=== PATIENT | female | born 1955 | race Caucasian/White ===

== ENCOUNTER 2016-11-26 06:57 | Observation (INO) | payer SELFPAY ==
[2016-11-26 06:57] VITALS: BMI 24.1
[2016-11-26] MEDS ORDERED: Albuterol-Ipratrop 3 mg / 0.5 (3 ml) UD INH STA ×2 (07:24→09:45)
[2016-11-26] MEDS ORDERED: Albuterol-Ipratrop 3 mg / 0.5 (3 ml) UD ONE ×2 (07:28→09:42)
[2016-11-26 07:50] LABS: BASO % 0.6 % (0.0-2.0); EOS # 0.5 K/uL (0.0-0.7); HEMATOCRIT 33.9 % (34.0-47.0); LYMPH # 1.5 K/uL (1.0-4.3); LYMPH % 20.6 % (20.0-40.0); MEAN CELL VOLUME 85.6 fL (81.0-99.0); MEAN CORPUSCULAR HEMOGLOBIN 27.9 pg (27.0-31.0); MEAN CORPUSCULAR HGB CONC 32.6 g/dL (33.0-37.0); MEAN PLATELET VOLUME 8.7 fL (7.2-11.7); MONO # 0.8 K/uL (0.0-0.8); MONO % 11.1 % (0.0-10.0); RED CELL DISTRIBUTION WIDTH 14.7 % (11.5-14.5); WHITE BLOOD COUNT 7.3 K/uL (4.8-10.8)
--- NOTE | 2016-11-26 08:08 | C.PDOC ---
History Of Present Illness 61 y/o female presents to the ED c/o cough productive of "greenish phlegm" with "blood speckles" for 3-4 days. She also notes subjective fever and chest pain only with cough. Denies vomiting, hematuria, recent travel, or sick contacts. Patient states she had her flu shot this year. Chief Complaint (Nursing): Flu-like Symptoms History Per: Patient History/Exam Limitations: no limitations Onset/Duration Of Symptoms: Days (3-4), Persistent Current Symptoms Are (Timing): Still Present Sick Contacts (Context): None Recent travel outside of the [place]: No Past Medical History Reviewed: Historical Data, Nursing Documentation, Vital Signs Vital Signs: Last Vital Signs Temp 98.0 F 11/26/16 17:10 Pulse 92 H 11/26/16 17:10 Resp 20 11/26/16 17:10 BP 124/77 11/26/16 17:10 Pulse Ox 96 11/26/16 13:00 - Medical History PMH: Gastritis, HTN Surgical History: No Surg Hx - [facility] Procedures MEASURE OF CARDIAC SAMPL & PRESSURE, L HEART, PERC APPROACH (10/10/15) PLAIN RADIOGRAPHY OF LEFT HEART USING LOW OSMOLAR CONTRAST (10/10/15) Family History: States: Unknown Family Hx - Social History Hx Tobacco Use: No Hx Alcohol Use: No Hx Substance Use: No - Immunization History Hx Tetanus Toxoid Vaccination: No Hx Influenza Vaccination: No Hx Pneumococcal Vaccination: Yes Review Of Systems Except As Marked, All Systems Reviewed And Found Negative. Constitutional: Positive for: Fever (subjective) Cardiovascular: Positive for: Chest Pain (only w/ cough) Respiratory: Positive for: Cough, Sputum Gastrointestinal: Negative for: Vomiting Genitourinary: Negative for: Hematuria Physical Exam - Physical Exam Appears: Non-toxic, No Acute Distress Skin: Normal Color, Warm, Dry, No Rash Head: Atraumatic, Normacephalic Eye(s): bilateral: Normal Inspection, PERRL Ear(s): Bilateral: Normal Nose: Normal Oral Mucosa: Moist Throat: Normal, No Erythema, No Exudate Neck: Normal ROM, Supple Chest: Symmetrical, No Tenderness Cardiovascular: Rhythm Regular Respiratory: No Rales, Rhonchi (mild b/l), Wheezing (mild expiratory) Gastrointestinal/Abdominal: Normal Exam, Soft, No Tenderness Back: Normal Inspection, No CVA Tenderness Extremity: Normal ROM, No Swelling Neurological/Psych: Oriented x3, Normal Speech, Normal Cognition ED Course And Treatment - Laboratory Results Result Diagrams: 11/26/16 07:46 11/26/16 07:46 ECG: Interpreted By Me ECG Rhythm: Sinus Rhythm Interpretation Of ECG: first degree AV block, normal axis Rate From EC (bpm) O2 Sat by Pulse Oximetry: 98 (ra) Pulse Ox Interpretation: Normal - Other Rad Chest X-Ray X-Ray: Viewed By Me, Read By Radiologist (Dk Kimbrough MD) Interpretation: IMPRESSION: Mild diffuse bilateral infiltrates with perihilar predominance. Findings may represent pulmonary edema/ CHF however pneumonia to be excluded Progress Note: Plan: EKG, CXR, Blood Work, Solu-Medrol IVP. Disposition - Disposition Disposition: HOSPITALIZED Disposition Time: 10:00 Condition: STABLE - Clinical Impression Clinical Impression: Community acquired pneumonia - Scribe Statement The provider has reviewed the documentation as recorded by the Scribe (Ananya Bonilla) Provider Attestation: All medical record entries made by the Scribe were at my direction and personally dictated by me. I have reviewed the chart and agree that the record accurately reflects my personal performance of the history, physical exam, medical decision making, and the department course for this patient. I have also personally directed, reviewed, and agree with the discharge instructions and disposition.
[2016-11-26 08:21] LABS: CHLORIDE 107 mmol/L (98-107); SODIUM 138 mmol/L (132-148)
[2016-11-26 08:23] LABS: AST/SGOT 50 U/L (14-36); BILIRUBIN,TOTAL 1.3 mg/dL (0.2-1.3); CARBON DIOXIDE 22 mmol/L (22-30); GFR AFRICAN-AMERICAN > 60
[2016-11-26 08:24] LABS: ALB/GLOB RATIO 1.3 (1.0-2.1); ALKALINE PHOSPHATASE 75 U/L (38-126); ALT/SGPT 35 U/L (9-52); BLOOD UREA NITROGEN 17 mg/dL (7-17); CALCIUM 8.2 mg/dl (8.6-10.4); GLUCOSE,RANDOM 85 mg/dL (65-105); TOTAL PROTEIN 7.4 g/dL (6.3-8.3)
[2016-11-26 08:29] LABS: POTASSIUM 4.9 mmol/L (3.6-5.2)
--- NOTE | 2016-11-26 09:57 | RAD ---
HISTORY: r/o infiltrate COMPARISON: No prior. TECHNIQUE: Chest PA and lateral FINDINGS: LUNGS: Mild diffuse bilateral on infiltrates with perihilar predominance. Findings may represent pulmonary edema/CHF however pneumonia to be excluded. . Clinical correlation recommended. PLEURA: No significant pleural effusion identified. No pneumothorax apparent. CARDIOVASCULAR: Cardiomegaly. OSSEOUS STRUCTURES: Moderate dextroscoliosis centered at the mid to lower thoracic region. VISUALIZED UPPER ABDOMEN: Normal. OTHER FINDINGS: None. IMPRESSION: Mild diffuse bilateral infiltrates with perihilar predominance. Findings may represent pulmonary edema/ CHF however pneumonia to be excluded
[2016-11-26] MEDS ORDERED: cefTRIAXone IV 1 gm in Dextros 50 ML IVPB STA (10:01)
[2016-11-26] MEDS ORDERED: Azithromycin 500 MG in Sodium Chloride 0.9% 250 ML IVPB STA (10:01)
[2016-11-26] MEDS ORDERED: Azithromycin 500mg/250ML NS 250 ML IVPB ONE (10:13)
[2016-11-26] MEDS ORDERED: cefTRIAXone IV 1 gm in Dextros 50 ML IVPB ONE (10:13)
--- NOTE | 2016-11-26 13:42 | CP.PCM.HP ---
<Amanda Damon - Last Filed: 11/26/16 14:00> History of Present Illness - History of Present Illness History of Present Illness: Internal medicine H & P for Hospitalist service- Amanda Damon, PGY-1 Pt S & E at bedside. 61F w/PMH sig for HTN, HLD, gastritis admitted to hospital for cough x 3 days. Pt reports that she noted chest soreness and fatigue 3 wks ago, came to ED- admitted to hospital- given Flexeril upon discharge, which helped with the muscle soreness. Approx 3 days ago pt developed productive cough w/hemoptysis- green mucus w/streaks of bright red blood. Admits to sinus congestion, cough with urinary incontinence, myaglias, fatigue, sore throat, rhinorrhea, subjective fevers, chills, poor appetite, SOB, ALMANZAR, diarrhea (soft/formed/yellow) , occasional LE (L>R) swelling after standing for long periods of time/working. Pt reports taking Ampicillin that was acquired in uar, 2 tablets yesterday. Denies sick contacts, N/V, constipation, dysuria, urinary frequency , rashes, numbness or tingling, weakness. 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 Present on Admission - Present on Admission Any Indicators Present on Admission: No History of DVT/PE: No History of Uncontrolled Diabetes: No Urinary Catheter: No Decubitus Ulcer Present: No Review of Systems - Review of Systems All systems: reviewed and no additional remarkable complaints except - Constitutional Constitutional: Chills, Fatigue, Fever, Headache, Lethargy. absent: Weight Gain , Weight Loss, Weakness - EENT Eyes: Change in Vision, Spots in Vision Ears: absent: Dizziness Nose/Mouth/Throat: Sinus Pressure, Sore Throat. absent: Epistaxis, Dysphagia - Cardiovascular Cardiovascular: absent: Chest Pain, Leg Edema - Respiratory Respiratory: Cough, Chest Congestion. absent: Dyspnea on Exertion - Gastrointestinal Gastrointestinal: Loose Stools. absent: Abdominal Pain, Constipation, Nausea, Vomiting - Genitourinary Genitourinary: Urinary Incontinence (with cough). absent: Dysuria - Musculoskeletal Musculoskeletal: Myalgias. absent: Numbness, Tingling - Integumentary Integumentary: absent: Rash - Neurological Neurological: absent: Dizziness, Tingling Past Patient History - Infectious Disease Hx of Infectious Diseases: None - Past Medical History & Family History Past Medical History?: Yes - Past Social History Smoking Status: Never Smoked - CARDIAC Hx Hypertension: Yes - PULMONARY Hx Respiratory Disorders: No - NEUROLOGICAL Hx Neurological Disorder: No - HEENT Hx HEENT Problems: No - ENDOCRINE/METABOLIC Hx Endocrine Disorders: No - HEMATOLOGICAL/ONCOLOGICAL Hx Blood Disorders: No - INTEGUMENTARY Hx Dermatological Problems: No - MUSCULOSKELETAL/RHEUMATOLOGICAL Hx Musculoskeletal Disorders: No Hx Falls: No - GASTROINTESTINAL Hx Gastritis: Yes - GENITOURINARY/GYNECOLOGICAL Hx Genitourinary Disorders: No - PSYCHIATRIC Hx Substance Use: No - SURGICAL HISTORY Hx Surgeries: No - ANESTHESIA Hx Anesthesia: No Meds Allergies/Adverse Reactions: Allergies Allergy/AdvReac Type Severity Reaction Status Date / Time No Known Allergies Allergy Verified 11/26/16 07:09 Physical Exam - Constitutional Appears: Non-toxic, No Acute Distress - Head Exam Head Exam: ATRAUMATIC, NORMAL INSPECTION, NORMOCEPHALIC - Eye Exam Eye Exam: EOMI, Normal appearance, PERRL Pupil Exam: NORMAL ACCOMODATION, PERRL - ENT Exam ENT Exam: Mucous Membranes Moist, Normal Exam - Neck Exam Neck exam: Positive for: Full Rom, Normal Inspection - Respiratory Exam Respiratory Exam: Wheezes (minimal B/L), NORMAL BREATHING PATTERN. absent: Clear to Auscultation Bilateral, Rales, Rhonchi, Stridor - Cardiovascular Exam Cardiovascular Exam: REGULAR RHYTHM, +S1, +S2 - GI/Abdominal Exam GI & Abdominal Exam: Normal Bowel Sounds, Soft. absent: Diminished Bowel Sounds , Distended, Firm, Guarding, Hernia, Rigid, Tenderness - Extremities Exam Extremities exam: Positive for: full ROM, normal inspection. Negative for: pedal edema, tenderness - Back Exam Back exam: FULL ROM, NORMAL INSPECTION. absent: paraspinal tenderness, rash noted, tenderness - Neurological Exam Neurological exam: Alert, CN II-XII Intact, Oriented x3 - Psychiatric Exam Psychiatric exam: Normal Affect, Normal Mood - Skin Skin Exam: Dry, Intact, Normal Color, Warm Results - Vital Signs Recent Vital Signs: Last Vital Signs Temp 99.0 F 11/26/16 13:00 Pulse 82 11/26/16 13:00 Resp 16 11/26/16 13:00 BP 156/75 H 11/26/16 13:00 Pulse Ox 96 11/26/16 13:00 - Labs Result Diagrams: 11/26/16 07:46 11/26/16 07:46 Assessment & Plan - Assessment and Plan (Free Text) Assessment: Community Acquired Pneumonia Floraster 250mg BID Promethazine w/codeiene PRN Rocephin 1mg QD Azithromycin 500mg QD Tylenol PRN fever O2 PRN FU Echo FU BNP FU strep pneumo FU legionella FU mycoplasma FU blood cxr HTN ASA daily Norvasc 5mg Daily HLD FU Lipid panel Cretor 5mg HS GI/DVT ppx SCDs Pepcid Heparin Dispo Admit to Med-Surg VS Q4H HHD Activity as paola Ad flora OOBTC DW attending - Date & Time Date: 11/26/16 Time: 11:15 Decision To Admit - Pt Status Changed To: Hospital Disposition Of: Observation - . Bed Request Type: Regular Admitting Physician: Erika Lu <Erika Lu V - Last Filed: 11/26/16 20:22> Results - Vital Signs Recent Vital Signs: Last Vital Signs Temp 98.0 F 11/26/16 17:10 Pulse 92 H 11/26/16 18:00 Resp 20 11/26/16 17:10 BP 124/77 11/26/16 17:10 Pulse Ox 98 11/26/16 17:20 - Labs Result Diagrams: 11/26/16 07:46 11/26/16 07:46 Assessment & Plan (1) Community acquired pneumonia Status: Acute Comment: Chest xray (11/26/16): mild diffuse bilateral infiltrates with perihilar predominace. Findings may represent pulmonary edema/CHF; however pneumonia to be exclused. IV Abx: Rocephin 1 gram Iv Q 12hours and Azithromycin 500mg IV q daily (active since 11/26/16). Florastor 250mg PO bid. Pherngan with codeine 5ml PO Q 4hour PRN cough. Ordered for strep pnuemonia, legionella urine, and mycoplasma igm. Repeat Chest xray PA and Lateral tomorrow (2) Pleuritic chest pain Status: Acute Comment: Ordered for baseline and EKG. Ordered for VAMSHI and EKG at 8PM on and VAMSHI and EKG 1AM on 11/27/16. EKG on admission: sinus with 1 AV block. Placed on telemetry. Prior cardiac cath (2016): normal coronaries. Echo about one year ago. Cardiology (Dr. Hurtado) configuration technician-->f/u recommendations (3) Gastritis Status: Chronic Comment: Protonix 40mg Iv qdaily (4) HTN (hypertension) Status: Chronic Comment: Norvasc 5mg PO daily. Monitor vital signs and adjust accordingly (5) Hyperlipidemia Status: Chronic Comment: Crestor 5mg PO qHS. Fasting lipid panel in AM (6) Prophylactic measure Status: Acute Comment: DVT ppx: Heparin 5000 units subq12. GI ppx: Protonix 40mg Iv q daily. Florastor 250mg PO bid Attending/Attestation - Attestation I have personally seen and examined this patient.: Yes I have fully participated in the care of the patient.: Yes I have reviewed all pertinent clinical information: Yes Notes (Text): Patient seen, examined, and case discussed with day-time resident. Patient seen in [facility] [place] Bed 2 at 11:50AM on 11/26/16. Patient reported to me productive cough X3 days, with yellow pheglem, nonbloody, with associated muscle aches and pains. Patient attempted to go to work this morning but did not feel well and came into emergency room today. Patient reports pleuritic chest pain with cough. Discussed admitting orders with day-time resident. Assessment/Plan (1) Community acquired pneumonia Status: Acute Comment: Chest xray (11/26/16): mild diffuse bilateral infiltrates with perihilar predominace. Findings may represent pulmonary edema/CHF; however pneumonia to be excluded. IV Abx: Rocephin 1 gram Iv Q 12hours and Azithromycin 500mg IV q daily (active since 11/26/16). Florastor 250mg PO bid. Pherngan with codeine 5ml PO Q 4hour PRN cough. Ordered for strep pnuemonia, legionella urine, and mycoplasma igm. Repeat Chest xray PA and Lateral tomorrow (2) Pleuritic chest pain Status: Acute Comment: Ordered for baseline and EKG. Ordered for VAMSHI and EKG at 8PM on and VAMSHI and EKG 1AM on 11/27/16. EKG on admission: sinus with 1 AV block. Placed on telemetry. Prior cardiac cath (2015): normal coronaries. Echo about one year ago. Cardiology (Dr. Hurtado) configuration technician-->f/u recommendations (3) Gastritis Status: Chronic Comment: Protonix 40mg Iv qdaily (4) HTN (hypertension) Status: Chronic Comment: Norvasc 5mg PO daily. Monitor vital signs and adjust accordingly (5) Hyperlipidemia Status: Chronic Comment: Crestor 5mg PO qHS. Fasting lipid panel in AM (6) Prophylactic measure Status: Acute Comment: DVT ppx: Heparin 5000 units subq12. GI ppx: Protonix 40mg Iv q daily. Florastor 250mg PO bid
[2016-11-26 17:13] VITALS: RESP 20
[2016-11-26] MEDS: Saccharomyces Boulardi 250 mg Cap PO SCH (17:56)
[2016-11-27 06:37] LABS: BASO % 0.1 % (0.0-2.0); HEMATOCRIT 32.5 % (34.0-47.0); LYMPH # 1.3 K/uL (1.0-4.3); LYMPH % 12.5 % (20.0-40.0); MEAN CELL VOLUME 85.2 fL (81.0-99.0); MEAN CORPUSCULAR HEMOGLOBIN 28.6 pg (27.0-31.0); MEAN CORPUSCULAR HGB CONC 33.6 g/dL (33.0-37.0); MEAN PLATELET VOLUME 9.1 fL (7.2-11.7); MONO # 0.9 K/uL (0.0-0.8); MONO % 8.3 % (0.0-10.0); RED CELL DISTRIBUTION WIDTH 14.6 % (11.5-14.5); WHITE BLOOD COUNT 10.4 K/uL (4.8-10.8)
[2016-11-27 06:51] LABS: CHLORIDE 105 mmol/L (98-107); POTASSIUM 3.9 mmol/L (3.6-5.2); SODIUM 137 mmol/L (132-148)
[2016-11-27 06:53] LABS: BILIRUBIN,TOTAL 0.8 mg/dL (0.2-1.3); CARBON DIOXIDE 23 mmol/L (22-30); CHOLESTEROL 200 mg/dL (0-199); GFR AFRICAN-AMERICAN > 60
[2016-11-27 06:54] LABS: ALB/GLOB RATIO 1.2 (1.0-2.1); ALKALINE PHOSPHATASE 79 U/L (38-126); ALT/SGPT 37 U/L (9-52); AST/SGOT 25 U/L (14-36); BLOOD UREA NITROGEN 17 mg/dL (7-17); CALCIUM 8.4 mg/dl (8.6-10.4); GLUCOSE,RANDOM 106 mg/dL (65-105); TOTAL PROTEIN 6.8 g/dL (6.3-8.3)
[2016-11-27] MEDS: Promethazine/Cod 6.25mg-10mg/5ml Syr UD PO PRN ×2 (08:06→13:57)
--- NOTE | 2016-11-27 08:55 | CP.PCM.CON ---
History of Present Illness - History of Present Illness History of Present Illness: called to see pt for cp pt with h/o cough productive purulent green sputum sob no dyuris cp at this time. [facility] Review of Systems - Review of Systems Systems not reviewed;Unavailable: Acuity of Condition - Constitutional Constitutional: Weight Loss - EENT Eyes: Change in Vision Ears: Ear Pain Nose/Mouth/Throat: Nasal Discharge - Cardiovascular Cardiovascular: Dyspnea - Respiratory Respiratory: Dyspnea, Excessive Mucous Production - Gastrointestinal Gastrointestinal: absent: Abdominal Pain - Genitourinary Genitourinary: absent: Dysuria - Integumentary Integumentary: Dry Skin - Neurological Neurological: absent: Syncope - Psychiatric Psychiatric: Anxiety - Endocrine Endocrine: Fatigue - Hematologic/Lymphatic Hematologic: absent: Easy Bruising Past Patient History - Infectious Disease Hx of Infectious Diseases: None - Past Medical History & Family History Past Medical History?: Yes - Past Social History Smoking Status: Never Smoked - CARDIAC Hx Hypertension: Yes - PULMONARY Hx Respiratory Disorders: No Hx Pneumonia: Yes - NEUROLOGICAL Hx Neurological Disorder: No - HEENT Hx HEENT Problems: No Hx Cataracts: Yes (left eye) Hx Epistaxis: Yes - RENAL Hx Chronic Kidney Disease: No - ENDOCRINE/METABOLIC Hx Endocrine Disorders: No - HEMATOLOGICAL/ONCOLOGICAL Hx Blood Disorders: No - INTEGUMENTARY Hx Dermatological Problems: No - MUSCULOSKELETAL/RHEUMATOLOGICAL Hx Musculoskeletal Disorders: No Hx Back Pain: Yes Hx Falls: No - GASTROINTESTINAL Hx Gastritis: Yes - GENITOURINARY/GYNECOLOGICAL Hx Genitourinary Disorders: No - PSYCHIATRIC Hx Substance Use: No - SURGICAL HISTORY Hx Surgeries: No Other/Comment: none - ANESTHESIA Hx Anesthesia: Yes Meds Home Medications: Home Medication List Medication Instructions Recorded Confirmed Type Aspirin [Ecotrin] 81 mg PO DAILY #30 tabec 11/27/16 Rx Guaifenesin [Mucinex] 600 mg PO Q12H PRN #14 tab.er.12h 11/27/16 Rx Moxifloxacin [Avelox] 400 mg PO DAILY #7 tab 11/27/16 Rx Promethazine/Codeine 5 ml PO Q4H PRN #120 ml 11/27/16 Rx [Codeine/Promethazine 10 MG/5 Ml-6.25 MG/5 Ml] Allergies/Adverse Reactions: Allergies Allergy/AdvReac Type Severity Reaction Status Date / Time No Known Allergies Allergy Verified 11/26/16 07:09 - Medications Medications: Current Medications Acetaminophen (Tylenol 325mg Tab) 650 mg PO Q6 PRN PRN Reason: Fever >100.4 F Amlodipine Besylate (Norvasc) 5 mg PO DAILY [facility] Last Admin: 11/26/16 16:39 Dose: 5 mg Aspirin (Ecotrin) 81 mg PO DAILY [facility] Last Admin: 11/26/16 16:39 Dose: 81 mg Heparin Sodium (Porcine) (Heparin) 5,000 units SC Q12 [facility] Last Admin: 11/26/16 22:22 Dose: 5,000 units Azithromycin 500 mg/ Sodium (Chloride) 250 mls @ 250 mls/hr IVPB DAILY@1030 [facility] Ceftriaxone Sodium 1 gm/ (Sodium Chloride) 100 mls @ 100 mls/hr IVPB DAILY@ 0930 [facility] Pantoprazole Sodium (Protonix Inj) 40 mg IVP DAILY [facility] Promethazine HCl/Codeine (Phenergan/Codeine Oral Syrup) 5 ml PO Q4 PRN PRN Reason: Cough Last Admin: 11/27/16 08:06 Dose: 5 ml Rosuvastatin Calcium (Crestor) 5 mg PO HS [facility] Last Admin: 11/26/16 22:22 Dose: 5 mg Saccharomyces Boulardii (Florastor) 250 mg PO BID [facility] Last Admin: 11/26/16 17:56 Dose: 250 mg Physical Exam - Constitutional Appears: Chronically Ill - Head Exam Head Exam: ATRAUMATIC, NORMOCEPHALIC - Eye Exam Eye Exam: Normal appearance - ENT Exam ENT Exam: Mucous Membranes Moist - Respiratory Exam Respiratory Exam: Wheezes - Cardiovascular Exam Cardiovascular Exam: REGULAR RHYTHM - GI/Abdominal Exam GI & Abdominal Exam: Normal Bowel Sounds - Exam External exam: NORMAL EXTERNAL EXAM - Extremities Exam Extremities exam: Positive for: normal inspection, pedal pulses present - Neurological Exam Neurological exam: Alert - Psychiatric Exam Psychiatric exam: Normal Affect - Skin Skin Exam: Warm Results - Vital Signs Recent Vital Signs: Last Vital Signs Temp 97.6 F 11/27/16 07:56 Pulse 65 11/27/16 08:00 Resp 20 11/27/16 07:56 BP 136/56 L 11/27/16 07:56 Pulse Ox 96 11/27/16 07:56 - Labs Result Diagrams: 11/27/16 06:28 11/27/16 06:28 Labs: Laboratory Results - last 24 hr 11/26/16 11/27/16 11/27/16 21:50 01:30 06:28 WBC 10.4 RBC 3.82 Hgb 10.9 L Hct 32.5 L MCV 85.2 MCH 28.6 MCHC 33.6 RDW 14.6 H Plt Count 216 MPV 9.1 Neut % (Auto) 79.1 H Lymph % (Auto) 12.5 L [place] % (Auto) 8.3 Eos % (Auto) 0.0 Baso % (Auto) 0.1 Neut # 8.2 H Lymph # 1.3 [place] # 0.9 H Eos # 0.0 Baso # 0.0 APTT 34 Sodium 137 Potassium 3.9 Chloride 105 Carbon Dioxide 23 Anion Gap 13 BUN 17 Creatinine 0.7 Est GFR ( Amer) > 60 Est GFR (Non-Af Amer) > 60 Random Glucose 106 H Calcium 8.4 L Total Bilirubin 0.8 AST 25 ALT 37 Alkaline Phosphatase 79 Total Creatine Kinase 97 96 CK-MB (Mass) 0.91 1.16 Troponin I, Quant 0.0750 0.0810 NT-Pro-B Natriuret Pep 1230 H Total Protein 6.8 Albumin 3.7 Globulin 3.1 Albumin/Globulin Ratio 1.2 Triglycerides 70 D Cholesterol 200 H LDL Cholesterol Direct 115 HDL Cholesterol 58 Assessment & Plan (1) Chest pain Assessment and Plan: suggest troponin echo evaluate ef tx pneumonia agressive IV tx will follow with you Status: Acute (2) Community acquired pneumonia Status: Acute
[2016-11-27] MEDS: Saccharomyces Boulardi 250 mg Cap PO SCH ×2 (09:37→17:46)
[2016-11-27] MEDS ORDERED: Azithromycin 500 MG in Sodium Chloride 0.9% 250 ML IVPB SCH (10:30)
--- NOTE | 2016-11-27 10:39 | RAD ---
HISTORY: cough COMPARISON: Chest x-ray performed 11/26/16 TECHNIQUE: Chest PA and lateral FINDINGS: LUNGS: Mild right basilar atelectasis. Please note that chest x-ray has limited sensitivity for the detection of pulmonary masses. PLEURA: No significant pleural effusion identified. No definite pneumothorax . CARDIOVASCULAR: Cardiomegaly. OSSEOUS STRUCTURES: Scoliosis convex to the right. Degenerative changes. VISUALIZED UPPER ABDOMEN: Unremarkable. OTHER FINDINGS: None. IMPRESSION: Mild right basilar atelectasis.
[2016-11-27 12:06] LABS: LEGIONELLA AG URINE NEGATIVE (NEGATIVE)
--- NOTE | 2016-11-27 12:55 | CP.PCM.PN ---
<Amanda Damon - Last Filed: 11/27/16 12:53> Subjective - Date & Time of Evaluation Date of Evaluation: 11/27/16 Time of Evaluation: 07:30 - Subjective Subjective: Internal medicine progress note for Hospitalist service- Amanda Damon, PGY-1 Pt S & E at bedside. Pt reports continued cough with phlegm, wheezing, chest pain with coughing. Denies N/V/F/C, SOB, abdominal pain. Is tolerating diet, sleeping ok. Ambulating. Objective - Vital Signs/Intake and Output Vital Signs (last 24 hours): Temp Pulse Resp BP Pulse Ox 97.6 F 65 20 136/56 L 96 11/27/16 07:56 11/27/16 08:00 11/27/16 07:56 11/27/16 07:56 11/27/16 07:56 Intake and Output: 11/27/16 11/27/16 06:59 18:59 Intake Total 420 Balance 420 - Medications Medications: Current Medications Acetaminophen (Tylenol 325mg Tab) 650 mg PO Q6 PRN PRN Reason: Fever >100.4 F Amlodipine Besylate (Norvasc) 5 mg PO DAILY [facility] Last Admin: 11/27/16 09:38 Dose: 5 mg Aspirin (Ecotrin) 81 mg PO DAILY [facility] Last Admin: 11/27/16 09:38 Dose: 81 mg Heparin Sodium (Porcine) (Heparin) 5,000 units SC Q12 [facility] Last Admin: 11/27/16 09:38 Dose: 5,000 units Azithromycin 500 mg/ Sodium (Chloride) 250 mls @ 250 mls/hr IVPB DAILY@1030 [facility] Last Admin: 11/27/16 09:36 Dose: 250 mls/hr Ceftriaxone Sodium 1 gm/ (Sodium Chloride) 100 mls @ 100 mls/hr IVPB DAILY@ 0930 [facility] Last Admin: 11/27/16 10:57 Dose: 100 mls/hr Pantoprazole Sodium (Protonix Inj) 40 mg IVP DAILY [facility] Last Admin: 11/27/16 09:37 Dose: 40 mg Promethazine HCl/Codeine (Phenergan/Codeine Oral Syrup) 5 ml PO Q4 PRN PRN Reason: Cough Last Admin: 11/27/16 08:06 Dose: 5 ml Rosuvastatin Calcium (Crestor) 5 mg PO HS [facility] Last Admin: 11/26/16 22:22 Dose: 5 mg Saccharomyces Yanidii (Florastor) 250 mg PO BID [facility] Last Admin: 11/27/16 09:37 Dose: 250 mg - Labs Labs: 11/27/16 06:28 11/27/16 06:28 APTT 34 SECONDS (21-34) 11/27/16 06:28 - Constitutional Appears: Non-toxic, No Acute Distress - Head Exam Head Exam: ATRAUMATIC, NORMAL INSPECTION, NORMOCEPHALIC - Eye Exam Eye Exam: EOMI, Normal appearance, PERRL Pupil Exam: NORMAL ACCOMODATION, PERRL - ENT Exam ENT Exam: Mucous Membranes Moist, Normal Exam - Respiratory Exam Respiratory Exam: Chest Wall Tenderness, Wheezes, NORMAL BREATHING PATTERN. absent: Accessory Muscle Use, Decreased Breath Sounds, Clear to Ausculation Bilateral, Rales, Rhonchi, Stridor - Cardiovascular Exam Cardiovascular Exam: REGULAR RHYTHM, +S1, +S2 - GI/Abdominal Exam GI & Abdominal Exam: Soft, Normal Bowel Sounds. absent: Tenderness - Extremities Exam Extremities Exam: Full ROM, Normal Inspection. absent: Tenderness - Back Exam Back Exam: Full ROM, NORMAL INSPECTION - Neurological Exam Neurological Exam: Alert, Awake, CN II-XII Intact, Oriented x3 - Psychiatric Exam Psychiatric exam: Normal Affect, Normal Mood - Skin Skin Exam: Dry, Intact, Normal Color, Warm Assessment and Plan - Assessment and Plan (Free Text) Assessment: Community Acquired Pneumonia Cont Floraster 250mg BID Cont Promethazine w/codeiene PRN Cont Rocephin 1mg QD Cont Azithromycin 500mg QD Cont Tylenol PRN fever O2 PRN FU echo- report pending BNP 1230 from 635 FU strep pneumo - pending Legionella neg Mycoplasma pending CXR w/mild R basilar atelectasis FU blood cxr Elevated BNP BNP 1230 Cardio consulted- Voudouris HTN ASA daily Norvasc 5mg Daily HLD Lipid panel - TG 70, Chol 200, LDL 115, HDL 58 Cont Crestor 5mg HS GI/DVT ppx SCDs Pepcid Heparin Dispo VS Q4H HHD Activity as paola Ad flora OOBTC Strict I/O's Daily wts Place g[place] Monitor FU cards recs DW attending <Erika Lu V - Last Filed: 11/27/16 14:04> Objective - Vital Signs/Intake and Output Vital Signs (last 24 hours): Temp Pulse Resp BP Pulse Ox 97.6 F 65 20 136/56 L 96 11/27/16 07:56 11/27/16 08:00 11/27/16 07:56 11/27/16 07:56 11/27/16 07:56 Intake and Output: 11/27/16 11/27/16 06:59 18:59 Intake Total 420 Balance 420 - Medications Medications: Current Medications Acetaminophen (Tylenol 325mg Tab) 650 mg PO Q6 PRN PRN Reason: Fever >100.4 F Amlodipine Besylate (Norvasc) 5 mg PO DAILY [facility] [place] Last Admin: 11/27/16 09:38 Dose: 5 mg Aspirin (Ecotrin) 81 mg PO DAILY [facility] [place] Last Admin: 11/27/16 09:38 Dose: 81 mg Heparin Sodium (Porcine) (Heparin) 5,000 units SC Q12 [facility] Last Admin: 11/27/16 09:38 Dose: 5,000 units Azithromycin 500 mg/ Sodium (Chloride) 250 mls @ 250 mls/hr IVPB DAILY@1030 [facility] [place] Last Admin: 11/27/16 09:36 Dose: 250 mls/hr Ceftriaxone Sodium 1 gm/ (Sodium Chloride) 100 mls @ 100 mls/hr IVPB DAILY@ 0930 [facility] Last Admin: 11/27/16 10:57 Dose: 100 mls/hr Pantoprazole Sodium (Protonix Inj) 40 mg IVP DAILY [facility] [place] Last Admin: 11/27/16 09:37 Dose: 40 mg Promethazine HCl/Codeine (Phenergan/Codeine Oral Syrup) 5 ml PO Q4 PRN PRN Reason: Cough Last Admin: 11/27/16 08:06 Dose: 5 ml Rosuvastatin Calcium (Crestor) 5 mg PO HS [facility] [place] Last Admin: 11/26/16 22:22 Dose: 5 mg Saccharomyces Boulardii (Florastor) 250 mg PO BID [facility] Last Admin: 11/27/16 09:37 Dose: 250 mg - Labs Labs: 11/27/16 06:28 11/27/16 06:28 APTT 34 SECONDS (21-34) 11/27/16 06:28 Assessment and Plan (1) Community acquired pneumonia Status: Acute (2) Pleuritic chest pain Status: Acute (3) Gastritis Status: Chronic (4) HTN (hypertension) Status: Chronic (5) Hyperlipidemia Status: Chronic (6) Prophylactic measure Status: Acute Attending/Attestation - Attestation I have personally seen and examined this patient.: Yes I have fully participated in the care of the patient.: Yes I have reviewed all pertinent clinical information, including history, physical exam and plan: Yes Notes (Text): Patient seen, examined, and case discussed with day-time resident Patient reports pleuritic chest pain with associated cough. Will continue IV abx , Patient has intermediate troponin, completed echocardiogram pending report, discussed with cardiology. Disposition: f/u echo; rule out CHF; c/w IV abx for pneumonia (1) Community acquired pneumonia Status: Acute Comment: Chest xray (11/26/16): mild diffuse bilateral infiltrates with perihilar predominace. Findings may represent pulmonary edema/CHF; however pneumonia to be excluded. IV Abx: Rocephin 1 gram Iv Q 12hours and Azithromycin 500mg IV q daily (active since 11/26/16). Florastor 250mg PO bid. Pherngan with codeine 5ml PO Q 4hour PRN cough. Ordered for strep pnuemonia, legionella urine:negative , and mycoplasma igm- pending Repeat Chest xray PA and Lateral: mild right basilar atelectasis (2) Pleuritic chest pain Status: Acute Comment: Elevated probnp pending echocardiogram to be read Placed on telemetry. Prior cardiac cath (2016): normal coronaries. Echo about one year ago. Cardiology (Dr. 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 Monitor vital signs and adjust accordingly (5) Hyperlipidemia Status: Chronic Comment: Crestor 5mg PO qHS. Fasting lipid panel in AM (6) Prophylactic measure Status: Acute Comment: DVT ppx: Heparin 5000 units subq12. GI ppx: Protonix 40mg Iv q daily. Florastor 250mg PO bid
--- NOTE | 2016-11-27 13:43 | CARD ---
APPROVED REPORT EXAM: Two-dimensional and M-mode echocardiogram with Doppler and color Doppler. Other Information Quality : AverageRhythm : NSR INDICATION Dyspnea Chest Pain CHECK EF, COMMUNITY ACQUIRED PNEUMONIA RISK FACTORS Hypertension Hyperlipidemia M-Mode DIMENSIONS RVDd1.04 (2.1-3.2cm)Left Atrium (MM)3.63 (2.5-4.0cm) IVSd1.20 (0.7-1.1cm)Aortic Root2.93 (2.2-3.7cm) LVDd5.08 (4.0-5.6cm)Aortic Cusp Exc.1.25 (1.5-2.0cm) PWd1.20 (0.7-1.1cm)FS (%) 29 % LVDs3.61 (2.0-3.8cm)LVEF (%)55 (>50%) Mitral Valve MV E Zmmhjfch911.2cm/sMV A Kllqmehr76.8cm/sE/A ratio2.0 TDI E/Lateral E'0.0E/Medial E'0.0 Tricuspid Valve TR Peak [id number]/sTR Peak Gr.18clDnZMNL20dmFe LEFT VENTRICLE The left ventricle is normal size. There is normal left ventricular wall thickness. The left ventricular function is normal. The left ventricular ejection fraction is within the normal range. No regional wall motion abnormalities noted. Transmitral Doppler flow pattern is Grade II-pseudonormal filling dynamics. LV filling pressure ( mean LA ) is elevated No left ventricle thrombus noted on this study. There is no ventricular septal defect visualized. There is no left ventricular aneurysm. There is no mass noted in the left ventricle. RIGHT VENTRICLE The right ventricle is normal size. There is normal right ventricular wall thickness. The right ventricular systolic function is normal. ATRIA The left atrium size is normal. The right atrium size is normal. The interatrial septum is intact with no evidence for an atrial septal defect. AORTIC VALVE The aortic valve is normal in structure and function. There is moderate aortic regurgitation. There is no aortic valvular stenosis. There is no aortic valvular vegetation. MITRAL VALVE The mitral valve is normal in structure and function. There is no evidence of mitral valve prolapse. There is no mitral valve stenosis. There is no mitral valve regurgitation noted. TRICUSPID VALVE The tricuspid valve is normal in structure and function. There is mild tricuspid regurgitation. Right ventricular systolic pressure is estimated at less than 30 mmHg. There is no tricuspid valve prolapse or vegetation. There is no tricuspid valve stenosis. PULMONIC VALVE The pulmonary valve is normal in structure and function. There is no pulmonic valvular regurgitation. There is no pulmonic valvular stenosis. GREAT VESSELS The aortic root is normal in size. The ascending aorta is normal in size. The pulmonary artery is normal. The IVC is normal in size and collapses >50% with inspiration. PERICARDIAL EFFUSION The pericardium appears normal. There is no pleural effusion. <Conclusion> The left ventricular function is normal. The left ventricular ejection fraction is within the normal range. No regional wall motion abnormalities noted. Transmitral Doppler flow pattern is Grade II-pseudonormal filling dynamics. LV filling pressure ( mean LA ) is elevated There is moderate aortic regurgitation.
[2016-11-27 18:13] VITALS: BP 143/76; PULSE 81; TEMP 99; O2SAT 99
--- NOTE | 2016-11-27 18:35 | CP.PCM.DIS ---
<Amanda Damon - Last Filed: 11/27/16 18:35> Provider - Provider Date of Admission: 11/26/16 10:18 Attending physician: Erika Lu DO Primary care physician: None Consults: Cardio- Voudouris Time Spent in preparation of Discharge (in minutes): 60 Hospital Course - Lab Results Lab Results: Most Recent Lab Values WBC 10.4 K/uL (4.8-10.8) 11/27/16 06:28 RBC 3.82 Mil/uL (3.80-5.20) 11/27/16 06:28 Hgb 10.9 g/dL (11.0-16.0) L 11/27/16 06:28 Hct 32.5 % (34.0-47.0) L 11/27/16 06:28 MCV 85.2 fL (81.0-99.0) 11/27/16 06:28 MCH 28.6 pg (27.0-31.0) 11/27/16 06:28 MCHC 33.6 g/dL (33.0-37.0) 11/27/16 06:28 RDW 14.6 % (11.5-14.5) H 11/27/16 06:28 Plt Count 216 K/uL (130-400) 11/27/16 06:28 MPV 9.1 fL (7.2-11.7) 11/27/16 06:28 Neut % (Auto) 79.1 % (50.0-75.0) H 11/27/16 06:28 Lymph % (Auto) 12.5 % (20.0-40.0) L 11/27/16 06:28 [place] % (Auto) 8.3 % (0.0-10.0) 11/27/16 06:28 Eos % (Auto) 0.0 % (0.0-4.0) 11/27/16 06:28 Baso % (Auto) 0.1 % (0.0-2.0) 11/27/16 06:28 Neut # 8.2 K/uL (1.8-7.0) H 11/27/16 06:28 Lymph # 1.3 K/uL (1.0-4.3) 11/27/16 06:28 [place] # 0.9 K/uL (0.0-0.8) H 11/27/16 06:28 Eos # 0.0 K/uL (0.0-0.7) 11/27/16 06:28 Baso # 0.0 K/uL (0.0-0.2) 11/27/16 06:28 APTT 34 SECONDS (21-34) 11/27/16 06:28 Sodium 137 mmol/L (132-148) 11/27/16 06:28 Potassium 3.9 mmol/L (3.6-5.2) 11/27/16 06:28 Chloride 105 mmol/L (98-107) 11/27/16 06:28 Carbon Dioxide 23 mmol/L (22-30) 11/27/16 06:28 Anion Gap 13 (10-20) 11/27/16 06:28 BUN 17 mg/dL (7-17) 11/27/16 06:28 Creatinine 0.7 MG/DL (0.7-1.2) 11/27/16 06:28 Est GFR ( Amer) > 60 11/27/16 06:28 Est GFR (Non-Af Amer) > 60 11/27/16 06:28 Random Glucose 106 mg/dL (65-105) H 11/27/16 06:28 Calcium 8.4 mg/dl (8.6-10.4) L 11/27/16 06:28 Total Bilirubin 0.8 mg/dL (0.2-1.3) 11/27/16 06:28 AST 25 U/L (14-36) 11/27/16 06:28 ALT 37 U/L (9-52) 11/27/16 06:28 Alkaline Phosphatase 79 U/L (38-126) 11/27/16 06:28 Total Creatine Kinase 96 U/L (30-135) 11/27/16 01:30 CK-MB (Mass) 1.16 ng/mL (0.0-3.38) 11/27/16 01:30 Troponin I 0.0910 ng/mL (0.00-0.120) 11/26/16 07:46 Troponin I, Quant 0.0810 ng/mL (0.00-0.120) 11/27/16 01:30 NT-Pro-B Natriuret Pep 1230 pg/mL (0-900) H 11/26/16 21:50 Total Protein 6.8 g/dL (6.3-8.3) 11/27/16 06:28 Albumin 3.7 g/dL (3.5-5.0) 11/27/16 06:28 Globulin 3.1 gm/dL (2.2-3.9) 11/27/16 06:28 Albumin/Globulin Ratio 1.2 (1.0-2.1) 11/27/16 06:28 Triglycerides 70 mg/dL (0-149) D 11/27/16 06:28 Cholesterol 200 mg/dL (0-199) H 11/27/16 06:28 LDL Cholesterol Direct 115 mg/dL (0-129) 11/27/16 06:28 HDL Cholesterol 58 mg/dL (30-70) 11/27/16 06:28 Influenza Typ A,B (EIA) Negative for flu a/b (NEGATIVE) 11/26/16 08:00 Ur L.pneumophila Ag Negative (NEGATIVE) 11/26/16 21:50 - Hospital Course Hospital Course: On hospital admission 61F w/PMH sig for HTN, HLD, gastritis admitted to hospital for cough x 3 days. Pt reports that she noted chest soreness and fatigue 3 wks ago, came to ED- admitted to hospital- given Flexeril upon discharge, which helped with the muscle soreness. Approx 3 days ago pt developed productive cough w/hemoptysis- green mucus w/streaks of bright red blood. Admits to sinus congestion, cough with urinary incontinence, myaglias, fatigue, sore throat, rhinorrhea, subjective fevers, chills, poor appetite, SOB, ALMANZAR, diarrhea (soft/formed/yellow) , occasional LE (L>R) swelling after standing for long periods of time/working. Pt reports taking Ampicillin that was acquired in [place], 2 tablets yesterday. Denies sick contacts, N/V, constipation, dysuria, urinary frequency , rashes, numbness or tingling, weakness. On hospital course Pt admitted to hospital for productive cough, pneumonia. Started on appropriate antibiotic therapy. Echo with EF 55%. Pt seen/evaluated by cardiology with recs for outpatient cardiology follow up. No leukocytosis, pt afebrile over course of hospitalization. Neg for flu, pneumonphilia, pending mycoplasma. Pt clinically stable, doing well on medical regimen. Ready for discharge home on antibiotics with outpatient follow up. On hospital discharge Patient is medically stable for discharge as per Dr. Lu. Please follow up with the [facility] in the [facility] to establish primary care within 1 week after discharge from hospital. You are being discharged on antibiotics, please take them as written. Please follow up with Dr. Hurtado through the [facility] as well, you can get a referral when you go for your new patient appointment. Avoid dairy products, drink tea or water, take the cough syrup as needed, use cough drops as needed, and eat toast. Please return to hospital if you have a recurrence of symptoms. Diagnoses Community acquired pneumonia HTN Hyperlipidemia Medications Moxifloxacin [Avelox] 400 mg PO DAILY #7 tab Aspirin [Ecotrin] 81 mg PO DAILY #30 tabec Guaifenesin [Mucinex] 600 mg PO Q12H PRN #14 tab.er.12h PRN Reason: Nasal Congestion Promethazine/Codeine [Codeine/Promethazine 10 MG/5 Ml-6.25 MG/5 Ml] 5 ml PO Q4H PRN #120 ml PRN Reason: Cough This is a summary of hospital course, please see EMR for further details. - Date & Time of H&P Date of H&P: 11/26/16 Time of H&P: 13:39 Discharge Exam - Head Exam Head Exam: ATRAUMATIC, NORMAL INSPECTION, NORMOCEPHALIC - Eye Exam Eye Exam: EOMI, Normal appearance, PERRL Pupil Exam: NORMAL ACCOMODATION, PERRL - ENT Exam ENT Exam: Mucous Membranes Moist, Normal Exam - Neck Exam Neck exam: Full Rom, Normal Inspection - Respiratory Exam Respiratory Exam: Wheezes (minimal B/L), NORMAL BREATHING PATTERN, UNREMARKABLE. absent: Clear to PA & Lateral, Rales, Rhonchi, Respiratory Distress - Cardiovascular Exam Cardiovascular Exam: REGULAR RHYTHM, +S1, +S2 - GI/Abdominal Exam GI & Abdominal Exam: Normal Bowel Sounds, Soft, Unremarkable. absent: Tenderness - Extremities Exam Extremities exam: full ROM, normal inspection - Back Exam Back exam: FULL ROM, NORMAL INSPECTION - Neurological Exam Neurological exam: Alert, CN II-XII Intact, Oriented x3 - Psychiatric Exam Psychiatric exam: Normal Affect, Normal Mood - Skin Skin Exam: Dry, Intact, Normal Color, Warm Discharge Plan - Discharge Medications Prescriptions: Moxifloxacin [Avelox] 400 mg PO DAILY #7 tab RX: Aspirin [Ecotrin] 81 mg PO DAILY #30 tabec Guaifenesin [Mucinex] 600 mg PO Q12H PRN #14 tab.er.12h PRN Reason: Nasal Congestion Promethazine/Codeine [Codeine/Promethazine 10 MG/5 Ml-6.25 MG/5 Ml] 5 ml PO Q4H PRN #120 ml PRN Reason: Cough - Follow Up Plan Condition: STABLE Disposition: HOME/ ROUTINE Instructions: Angina (DC), Chest Pain (DC), Pneumonia (DC), Hyperlipidemia (DC) Additional Instructions: Patient is medically stable for discharge as per Dr. Lu. Please follow up with the [facility] in the [facility] to establish primary care within 1 week after discharge from hospital. You are being discharged on antibiotics, please take them as written. Please follow up with Dr. Hurtado through the [facility], you can get a referral when you go for your new patient appointment. Avoid dairy products, drink tea or water, take the cough syrup as needed, use cough drops as needed, and eat toast. Please return to hospital if you have a recurrence of symptoms. Referrals: [facility] [Outside] <Erika Lu V - Last Filed: 11/29/16 03:59> Provider - Provider Date of Admission: 11/26/16 10:18 Attending physician: Erika Lu DO Diagnosis - Discharge Diagnosis (1) Community acquired pneumonia Status: Acute (2) Pleuritic chest pain Status: Acute (3) Gastritis Status: Chronic (4) HTN (hypertension) Status: Chronic (5) Hyperlipidemia Status: Chronic (6) Prophylactic measure Status: Acute Hospital Course - Lab Results Lab Results: Most Recent Lab Values WBC 10.4 K/uL (4.8-10.8) 11/27/16 06:28 RBC 3.82 Mil/uL (3.80-5.20) 11/27/16 06:28 Hgb 10.9 g/dL (11.0-16.0) L 11/27/16 06:28 Hct 32.5 % (34.0-47.0) L 11/27/16 06:28 MCV 85.2 fL (81.0-99.0) 11/27/16 06:28 MCH 28.6 pg (27.0-31.0) 11/27/16 06:28 MCHC 33.6 g/dL (33.0-37.0) 11/27/16 06:28 RDW 14.6 % (11.5-14.5) H 11/27/16 06:28 Plt Count 216 K/uL (130-400) 11/27/16 06:28 MPV 9.1 fL (7.2-11.7) 11/27/16 06:28 Neut % (Auto) 79.1 % (50.0-75.0) H 11/27/16 06:28 Lymph % (Auto) 12.5 % (20.0-40.0) L 11/27/16 06:28 [place] % (Auto) 8.3 % (0.0-10.0) 11/27/16 06:28 Eos % (Auto) 0.0 % (0.0-4.0) 11/27/16 06:28 Baso % (Auto) 0.1 % (0.0-2.0) 11/27/16 06:28 Neut # 8.2 K/uL (1.8-7.0) H 11/27/16 06:28 Lymph # 1.3 K/uL (1.0-4.3) 11/27/16 06:28 [place] # 0.9 K/uL (0.0-0.8) H 11/27/16 06:28 Eos # 0.0 K/uL (0.0-0.7) 11/27/16 06:28 Baso # 0.0 K/uL (0.0-0.2) 11/27/16 06:28 APTT 34 SECONDS (21-34) 11/27/16 06:28 Sodium 137 mmol/L (132-148) 11/27/16 06:28 Potassium 3.9 mmol/L (3.6-5.2) 11/27/16 06:28 Chloride 105 mmol/L (98-107) 11/27/16 06:28 Carbon Dioxide 23 mmol/L (22-30) 11/27/16 06:28 Anion Gap 13 (10-20) 04/15/17 06:28 BUN 17 mg/dL (7-17) 11/27/16 06:28 Creatinine 0.7 MG/DL (0.7-1.2) 11/27/16 06:28 Est GFR ( Amer) > 60 11/27/16 06:28 Est GFR (Non-Af Amer) > 60 11/27/16 06:28 Random Glucose 106 mg/dL (65-105) H 11/27/16 06:28 Calcium 8.4 mg/dl (8.6-10.4) L 11/27/16 06:28 Total Bilirubin 0.8 mg/dL (0.2-1.3) 11/27/16 06:28 AST 25 U/L (14-36) 11/27/16 06:28 ALT 37 U/L (9-52) 11/27/16 06:28 Alkaline Phosphatase 79 U/L (38-126) 11/27/16 06:28 Total Creatine Kinase 96 U/L (30-135) 11/27/16 01:30 CK-MB (Mass) 1.16 ng/mL (0.0-3.38) 11/27/16 01:30 Troponin I 0.0910 ng/mL (0.00-0.120) 11/26/16 07:46 Troponin I, Quant 0.0810 ng/mL (0.00-0.120) 11/27/16 01:30 NT-Pro-B Natriuret Pep 1230 pg/mL (0-900) H 11/26/16 21:50 Total Protein 6.8 g/dL (6.3-8.3) 11/27/16 06:28 Albumin 3.7 g/dL (3.5-5.0) 11/27/16 06:28 Globulin 3.1 gm/dL (2.2-3.9) 11/27/16 06:28 Albumin/Globulin Ratio 1.2 (1.0-2.1) 11/27/16 06:28 Triglycerides 70 mg/dL (0-149) D 11/27/16 06:28 Cholesterol 200 mg/dL (0-199) H 11/27/16 06:28 LDL Cholesterol Direct 115 mg/dL (0-129) 11/27/16 06:28 HDL Cholesterol 58 mg/dL (30-70) 11/27/16 06:28 Influenza Typ A,B (EIA) Negative for flu a/b (NEGATIVE) 11/26/16 08:00 Ur L.pneumophila Ag Negative (NEGATIVE) 11/26/16 21:50 Mycoplasma pneumon IgM Negative (NEGATIVE) 11/26/16 21:50 Attending/Attestation - Attestation I have personally seen and examined this patient.: Yes I have fully participated in the care of the patient.: Yes I have reviewed all pertinent clinical information, including history, physical exam and plan: Yes Notes (Text): This is is late computer entry for 11/27/16. Patient seen earlier in the day. Patient completed for echocardiogram. Discussed with cardiology, patient is stable for discharge. Patient has low risk of pneumonia per pneumonia severity index, and recommended for Avelox 400mg PO once a daily 5 days, with cough syrup PRN, and muclnex OTC. Patient is medically stable for discharg. Please follow up with the [facility] in the [facility] to establish primary care within 1 week after discharge from hospital. You are being discharged on antibiotics, please take them as written. Please follow up with Dr. Hurtado through the [facility] as well, you can get a referral when you go for your new patient appointment. Avoid dairy products, drink tea or water, take the cough syrup as needed, use cough drops as needed, and eat toast. Please return to hospital if you have a recurrence of symptoms. This is a summary of patient's hospitalization. Please refer to EMR for further details. (1) Community acquired pneumonia Status: Acute Comment: Chest xray (11/26/16): mild diffuse bilateral infiltrates with perihilar predominace. Findings may represent pulmonary edema/CHF; however pneumonia to be excluded. IV Abx: Rocephin 1 gram Iv Q 12hours and Azithromycin 500mg IV q daily (active since 11/26/16). Florastor 250mg PO bid. Pherngan with codeine 5ml PO Q 4hour PRN cough. Ordered for strep pnuemonia, legionella urine:negative , and mycoplasma igm- pending Repeat Chest xray PA and Lateral: mild right basilar atelectasis Patient stable for discharge, patient discharged on PO antibiotic, cough syrup prn, mucinex. Recommended to follow-up in the clinic upon discharge (2) Pleuritic chest pain Status: Acute Comment: Elevated probnp Echocardiogram read. per cardiology, stable from their standpoint for discharge. patient does not have CHF. Placed on telemetry. Prior cardiac cath (2015): normal coronaries. Echo about one year ago. 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 Monitor vital signs and adjust accordingly (5) Hyperlipidemia Status: Chronic Comment: Crestor 5mg PO qHS. Fasting lipid panel in AM (6) Prophylactic measure Status: Acute Comment: DVT ppx: Heparin 5000 units subq12. GI ppx: Protonix 40mg Iv q daily. Florastor 250mg PO bid
[2016-11-27] MEDS ORDERED: Pneumococcal 23-Valent Vaccine IM ONE (18:47)
--- NOTE | 2016-11-30 08:02 | CARD ---
APPROVED REPORT EKG Measurement Heart [id number] <Conclusion> Sinus rhythm with 1st degree AV block Incomplete left bundle branch block Voltage criteria for left ventricular hypertrophy Nonspecific ST and T wave abnormality Prolonged QT Abnormal ECG
--- NOTE | 2016-12-04 14:35 | CARD ---
APPROVED REPORT EKG Measurement Heart [id number] <Conclusion> Sinus rhythm with 1st degree AV block Left ventricular hypertrophy with repolarization abnormality Prolonged QT Abnormal ECG
== END 2016-11-27 18:45 | disposition home or self-care (01) ==
LOC: C.ER 06:57 → C.9E 10:18 → C.6T 12:25
PROVIDERS: ADMIT Hospitalist; ATTEND Hospitalist
DX: J18.9 Pneumonia, unspecified organism (principal); I10 Essential (primary) hypertension; E78.5 Hyperlipidemia, unspecified; K29.50 Unspecified chronic gastritis without bleeding; Z87.01 Personal history of pneumonia (recurrent); I35.1 Nonrheumatic aortic (valve) insufficiency
CPT/HCPCS: 36415; 71020; 80053; 80061; 83880; 84484; 85025; 85730; 86738; 87040; 87449; 87804; 87899; 93306; 94640; 96374; 99285; C9113; G0378; J0456; J0696; J1644; J2930; J7050

== ENCOUNTER 2017-06-29 12:01 | Inpatient (IN) | payer OTHER ==
[2017-06-29 12:04] VITALS: BMI 34.0
--- NOTE | 2017-06-29 12:59 | C.PDOC ---
History Of Present Illness 62 y/o F c PMHx HTN, HLD, gastritis p/w cough x 2 days. Reports subjective fever , productive of green sputum, and diffuse body aches. Patient states it feels somewhat similar to when she was diagnosed with pneumonia in the past. She notes a vague chest pain across her chest for the past 2 weeks, which she did not think much of until the cough began yesterday. Denies dyspnea, leg swelling , hemoptysis, vomiting. Time Seen by Provider: 06/29/17 12:11 Chief Complaint (Nursing): Chest Pain History Per: Fur Blower ([id number]) Past Medical History Vital Signs: Last Vital Signs Temp 98.4 F 06/29/17 17:19 Pulse 75 06/29/17 17:19 Resp 18 06/29/17 17:19 BP 177/84 H 06/29/17 17:19 Pulse Ox 99 06/29/17 17:19 - Medical History PMH: Gastritis, HTN, Pneumonia Denies: Chronic Kidney Disease - [facility] Procedures MEASURE OF CARDIAC SAMPL & PRESSURE, L HEART, PERC APPROACH (10/10/15) PLAIN RADIOGRAPHY OF LEFT HEART USING LOW OSMOLAR CONTRAST (10/10/15) Family History: States: Unknown Family Hx - Social History Hx Tobacco Use: No Hx Alcohol Use: No Hx Substance Use: No - Immunization History Hx Tetanus Toxoid Vaccination: No Hx Influenza Vaccination: No Hx Pneumococcal Vaccination: Yes Review Of Systems Except As Marked, All Systems Reviewed And Found Negative. Gastrointestinal: Negative for: Vomiting, Abdominal Pain Genitourinary: Negative for: Dysuria Physical Exam - Physical Exam Additional Physical Exam Comments: Gen: NAD Head: NC/AT Eyes: PERRL ENT: No pharyngeal erythema or exudates. Neck: No rigidity. Supple. Chest: No tenderness. CV: Regular rate. Lungs: CTA b/l. Abd: Soft, nontender. Extremities: FROM, no swelling. Skin: No rash. Neuro: Alert, no focal deficit. ED Course And Treatment - Laboratory Results Result Diagrams: 06/29/17 13:18 06/29/17 13:18 O2 Sat by Pulse Oximetry: 99 Medical Decision Making Medical Decision Makin62 y/o F p/w chest pain x 2 weeks, cough and subjective fever. Differential includes PNA, URI, influenza. Will exclude ACS for chest pain of 2 weeks with 1 set of cardiac enzymes and PE with D dimer. EKG Sinus rhythm, 90 bpm, 1st degree AV block, Nonspecific ST depressions, largely unchanged from previous. CXR IMPRESSION: Mild pulmonary venous congestion. Patchy opacity at the left lung base; infiltrate is not excluded. Cardiomegaly. CT angio Impression: No large central or segmental pulmonary embolus evident. Patchy opacities within the inferior right upper lobe/lingula likely related to pneumonia. Recommend follow-up to resolution. Mosaic profusion may be seen in the setting of small airways/small vessels disease. Right hilar adenopathy measuring up to 10 mm in short axis. Started on antibiotics. Dr. Lu accepts patient to hospitalist service. Disposition Discussed With : Erika Lu Doctor Will See Patient In The: ED - Disposition Disposition: HOSPITALIZED Disposition Time: 15:46 Condition: GUARDED - POA Core Measure Indicators: Chest Pain - Clinical Impression Clinical Impression: Pneumonia, Chest pain
[2017-06-29 13:23] LABS: BASO % 0.3 % (0.0-2.0); EOS # 0.2 K/uL (0.0-0.7); EOS % 2.3 % (0.0-4.0); HEMATOCRIT 34.4 % (34.0-47.0); LYMPH # 1.5 K/uL (1.0-4.3); MEAN CELL VOLUME 86.6 fL (81.0-99.0); MEAN CORPUSCULAR HEMOGLOBIN 28.6 pg (27.0-31.0); MEAN PLATELET VOLUME 9.1 fL (7.2-11.7); MONO # 0.7 K/uL (0.0-0.8); MONO % 7.6 % (0.0-10.0); NRBC % 0.1 % (0.0-2.0); RED CELL DISTRIBUTION WIDTH 14.6 % (11.5-14.5); WHITE BLOOD COUNT 9.4 K/uL (4.8-10.8)
[2017-06-29 13:33] LABS: ALB/GLOB RATIO 1.4 (1.0-2.1); ALKALINE PHOSPHATASE 73 U/L (38-126); ALT/SGPT 51 U/L (9-52); AST/SGOT 22 U/L (14-36); BILIRUBIN,TOTAL 1.7 mg/dL (0.2-1.3); BLOOD UREA NITROGEN 12 mg/dL (7-17); CALCIUM 8.2 mg/dl (8.6-10.4); CARBON DIOXIDE 25 mmol/L (22-30); CHLORIDE 103 mmol/L (98-107); GFR AFRICAN-AMERICAN > 60; GLUCOSE,RANDOM 78 mg/dL (65-105); POTASSIUM 3.6 mmol/L (3.6-5.2); SODIUM 136 mmol/L (132-148); TOTAL PROTEIN 6.5 g/dL (6.3-8.3)
--- NOTE | 2017-06-29 13:49 | RAD ---
HISTORY: cough, subjective fever COMPARISON: Chest x-ray performed 11/27/16 TECHNIQUE: Chest PA and lateral FINDINGS: Examination limited by habitus. LUNGS: Mild pulmonary venous congestion. Patchy opacity at the left lung base; infiltrate is not excluded. Please note that chest x-ray has limited sensitivity for the detection of pulmonary masses. PLEURA: No significant pleural effusion identified. No definite pneumothorax . CARDIOVASCULAR: Cardiomegaly. Ectatic aorta. Atherosclerotic calcifications. OSSEOUS STRUCTURES: Scoliosis. Degenerative changes. VISUALIZED UPPER ABDOMEN: Unremarkable. OTHER FINDINGS: None. IMPRESSION: Mild pulmonary venous congestion. Patchy opacity at the left lung base; infiltrate is not excluded. Cardiomegaly.
[2017-06-29] MEDS ORDERED: Iodixanol 320 MG/ML 100 ML BOTTLE IV ONE (14:30)
--- NOTE | 2017-06-29 15:48 | CT ---
CTA chest PE protocol Indication: cough, fever, dyspnea Technique: Contiguous axial images were obtained through the chest with intravenous contrast enhancement. Sagittal and coronal reconstructions were generated and reviewed. This CT exam was performed using 1 or more of the falling dose reduction techniques: Automated exposure control, adjustment of the MAA and/or kV according to patient size, and/or use of iterative reconstruction technique. IV Contrast: 100 mL Visipaque Radiation dose (DLP): 531.72 MGy-cm. Comparison: Chest x-ray performed 06/29/17 Findings: Visualized portions of the inferior thyroid gland appear unremarkable. The mediastinal and hilar vascular structures appear within normal limits. The heart appears within normal limits of size. Sub cm prevascular and mediastinal lymph nodes, nonspecific. Right hilar adenopathy measuring up to 10 mm. No large central or segmental pulmonary embolus evident. Mosaic profusion may be seen in the setting of small airways/small vessels disease. Patchy opacities within the inferior right upper lobe/lingula likely related to pneumonia. Recommend follow-up to resolution. No focal consolidation. No pleural effusion. No pneumothorax. Limited visualized portions of the upper abdomen appear grossly unremarkable. Prominent scoliosis convex to the right. Impression: No large central or segmental pulmonary embolus evident. Patchy opacities within the inferior right upper lobe/lingula likely related to pneumonia. Recommend follow-up to resolution. Mosaic profusion may be seen in the setting of small airways/small vessels disease. Right hilar adenopathy measuring up to 10 mm in short axis.
[2017-06-29] MEDS ORDERED: Azithromycin 500 MG in Sodium Chloride 0.9% 250 ML IVPB STA (15:59)
--- NOTE | 2017-06-29 17:57 | CP.PCM.HP ---
<Mitchell Root - Last Filed: 06/29/17 20:26> History of Present Illness - History of Present Illness History of Present Illness: Patient is a 62 year old female with a PMHx of questionable HTN, and HLD who presented to the ED with complaints of non-radiating, reproducible chest pain with associated wheezing, productive cough w/ green sputum, and bone and joint pain x 2 weeks. Patient states that all her symptoms exacerbated 2 days ago. She denies any modifying factors. Patient stated she had similar symptoms last year when she was diagnosed with pneumonia. She states she normally ambulates and can walk 4 blocks without getting tired. Patient did state that she needed pillows to breath properly at night. There is conflicting information between past charts and her history. Patient is a poor historian. ROS (+) Chest pain, Productive cough with green sputum, Fever, chills, SOB, generalized weakness, orthopnea, left leg swelling, left arm swelling, palpitations, neck pain, headache, blurry vision, sneezing, ringing in the ears (chronic). (-) hemoptysis, vomitting, sick contacts, nausea, changes in bowel habits, urinary symptoms. PMH: HTN?, HLD, Gastritis PSHx: Denies, Cardiac Cath (per chart) Allergies: NKDA Social Hx: Denies tobacco, alcohol, or illicit drug use Hos: Early last year for Pneumonia Fam Hx: She does not know Meds: PRN Aleve and ASA 81. PMD: Denies. Per chart patient has been to [facility] Review of Systems - Review of Systems All systems: reviewed and no additional remarkable complaints except Review of Systems: As per HPI Past Patient History - Infectious Disease Hx of Infectious Diseases: None - Past Medical History & Family History Past Medical History?: Yes - Past Social History Smoking Status: Never Smoked - CARDIAC Hx Hypertension: Yes - PULMONARY Hx Pneumonia: Yes - NEUROLOGICAL Hx Neurological Disorder: No - HEENT Hx HEENT Problems: No Hx Cataracts: Yes (left eye) - RENAL Hx Chronic Kidney Disease: No - ENDOCRINE/METABOLIC Hx Endocrine Disorders: No - HEMATOLOGICAL/ONCOLOGICAL Hx Blood Disorders: No - INTEGUMENTARY Hx Dermatological Problems: No - MUSCULOSKELETAL/RHEUMATOLOGICAL Hx Back Pain: Yes - GASTROINTESTINAL Hx Gastritis: Yes - GENITOURINARY/GYNECOLOGICAL Hx Genitourinary Disorders: No - PSYCHIATRIC Hx Substance Use: No - SURGICAL HISTORY Hx Cardiac Catheterization: Yes (doesn't recall physician) Other/Comment: none - ANESTHESIA Hx Anesthesia: Yes Meds Allergies/Adverse Reactions: Allergies Allergy/AdvReac Type Severity Reaction Status Date / Time No Known Allergies Allergy Verified 06/29/17 12:22 Physical Exam - Constitutional Appears: Non-toxic, No Acute Distress - Head Exam Head Exam: ATRAUMATIC, NORMAL INSPECTION, NORMOCEPHALIC - Eye Exam Eye Exam: EOMI, PERRL. absent: Scleral icterus - ENT Exam ENT Exam: Mucous Membranes Moist, Normal External Ear Exam, Normal Oropharynx, TM's Normal Bilaterally - Neck Exam Neck exam: Positive for: Lymphadenopathy (Cervical), Tenderness (lateral neck b/ l). Negative for: Thyromegaly - Respiratory Exam Respiratory Exam: Chest Wall Tenderness, Clear to Auscultation Bilateral. absent: Rales, Rhonchi, Wheezes, Respiratory Distress, Stridor - Cardiovascular Exam Cardiovascular Exam: +S1, +S2, Systolic Murmur. absent: Bradycardia, Tachycardia, +S4 - GI/Abdominal Exam GI & Abdominal Exam: Normal Bowel Sounds, Soft. absent: Distended, Firm, Tenderness - Extremities Exam Extremities exam: Positive for: normal capillary refill, normal inspection, pedal pulses present. Negative for: calf tenderness, pedal edema - Neurological Exam Neurological exam: Alert, Oriented x3 - Psychiatric Exam Psychiatric exam: Normal Affect, Normal Mood - Skin Skin Exam: Dry, Intact, Normal Color, Warm Results - Vital Signs Recent Vital Signs: Last Vital Signs Temp 98.4 F 06/29/17 17:19 Pulse 75 06/29/17 17:19 Resp 18 06/29/17 17:19 BP 177/84 H 06/29/17 17:19 Pulse Ox 99 06/29/17 17:19 - Labs Result Diagrams: 06/29/17 13:18 06/29/17 13:18 Labs: Laboratory Results - last 24 hr 06/29/17 06/29/17 06/29/17 12:58 13:18 13:18 WBC 9.4 RBC 3.97 Hgb 11.4 Hct 34.4 MCV 86.6 MCH 28.6 MCHC 33.0 RDW 14.6 H Plt Count 194 MPV 9.1 Neut % (Auto) 73.8 Lymph % (Auto) 16.0 L Donley % (Auto) 7.6 Eos % (Auto) 2.3 Baso % (Auto) 0.3 Neut # 6.9 Lymph # 1.5 Donley # 0.7 Eos # 0.2 Baso # 0.0 D-Dimer, Quantitative 244 H Sodium Potassium Chloride Carbon Dioxide Anion Gap BUN Creatinine Est GFR ( Amer) Est GFR (Non-Af Amer) Random Glucose Calcium Total Bilirubin AST ALT Alkaline Phosphatase Total Creatine Kinase CK-MB (Mass) Troponin I Total Protein Albumin Globulin Albumin/Globulin Ratio Influenza Typ A,B (EIA) Negative for flu a/b 06/29/17 13:18 WBC RBC Hgb Hct MCV MCH MCHC RDW Plt Count MPV Neut % (Auto) Lymph % (Auto) Donley % (Auto) Eos % (Auto) Baso % (Auto) Neut # Lymph # Donley # Eos # Baso # D-Dimer, Quantitative Sodium 136 Potassium 3.6 Chloride 103 Carbon Dioxide 25 Anion Gap 12 BUN 12 Creatinine 0.7 Est GFR ( Amer) > 60 Est GFR (Non-Af Amer) > 60 Random Glucose 78 Calcium 8.2 L Total Bilirubin 1.7 H AST 22 ALT 51 Alkaline Phosphatase 73 Total Creatine Kinase 112 CK-MB (Mass) 1.30 Troponin I 0.0460 Total Protein 6.5 Albumin 3.8 Globulin 2.7 Albumin/Globulin Ratio 1.4 Influenza Typ A,B (EIA) Assessment & Plan - Assessment and Plan (Free Text) Assessment: 62 year old female with PMHx of HTN? HLD and gastritis admitted for evaluation and treatment of chest pain likely 2/2 PNA. Plan: Chest Pain Likely 2/2 to PNA VAMSHI and EKG x2 Q6 starting at 22:00 BHAVIN score 1 ECHO due to systolic murmur Normal Cardiac Cath in 2016 Lipid Panel in AM TSH ASA 81; Received ASA 325 in ED Pneumonia (Community Acquired) CT of chest showed patchy opacity S. PNA, Legionella, Mycoplasma IgM urine antigens Sputum Culture Rapid Strep Throat Culture Duonebs Q6H PRN for SOB Rocephin 1 gram IV Daily (Day 1) Azithromycin 500mg IV Dialy (Day 1) Cough Robitussin w/ Codein 5ml PO Q4H PRN Lipid Disorder Lipid Panel in AM Crestor 2.5 PO HS Lipitor or affordable Statin on DC Elevated BP Questionable HTN Hx Gave Hydralizine 10 IV in ED Monitor Vitals Arthraligias ESR, CRP, SHAMAR, Lyme, ASO Proph Heparin 5000 Q8 Protonix 40 IV Daily Florastor 250 PO BID Patient seen and discussed with Attending Mitchell Root PGY-1 - Date & Time Date: 06/29/17 Time: 18:00 Decision To Admit - Pt Status Changed To: Hospital Disposition Of: Inpatient - Admit Certification Admit to Inpatient:: After my assessment, the patient will require hospitalization for at least two midnights. This is because of the severity of symptoms shown, intensity of services needed, and/or the medical risk in this patient being treated as an outpatient. <TabithaErika V - Last Filed: 06/29/17 20:51> Present on Admission - Present on Admission Any Indicators Present on Admission: No History of DVT/PE: No History of Uncontrolled Diabetes: No Urinary Catheter: No Decubitus Ulcer Present: No Results - Vital Signs Recent Vital Signs: Last Vital Signs Temp 98.1 F 06/29/17 17:45 Pulse 71 06/29/17 17:45 Resp 20 06/29/17 17:45 BP 134/87 06/29/17 17:45 Pulse Ox 99 06/29/17 18:00 - Labs Result Diagrams: 06/29/17 13:18 06/29/17 13:18 Labs: Laboratory Results - last 24 hr 06/29/17 06/29/17 06/29/17 12:58 13:18 13:18 WBC 9.4 RBC 3.97 Hgb 11.4 Hct 34.4 MCV 86.6 MCH 28.6 MCHC 33.0 RDW 14.6 H Plt Count 194 MPV 9.1 Neut % (Auto) 73.8 Lymph % (Auto) 16.0 L Donley % (Auto) 7.6 Eos % (Auto) 2.3 Baso % (Auto) 0.3 Neut # 6.9 Lymph # 1.5 Donley # 0.7 Eos # 0.2 Baso # 0.0 D-Dimer, Quantitative 244 H Sodium Potassium Chloride Carbon Dioxide Anion Gap BUN Creatinine Est GFR ( Amer) Est GFR (Non-Af Amer) Random Glucose Calcium Total Bilirubin AST ALT Alkaline Phosphatase Total Creatine Kinase CK-MB (Mass) Troponin I Total Protein Albumin Globulin Albumin/Globulin Ratio Influenza Typ A,B (EIA) Negative for flu a/b 06/29/17 13:18 WBC RBC Hgb Hct MCV MCH MCHC RDW Plt Count MPV Neut % (Auto) Lymph % (Auto) Donley % (Auto) Eos % (Auto) Baso % (Auto) Neut # Lymph # Donley # Eos # Baso # D-Dimer, Quantitative Sodium 136 Potassium 3.6 Chloride 103 Carbon Dioxide 25 Anion Gap 12 BUN 12 Creatinine 0.7 Est GFR ( Amer) > 60 Est GFR (Non-Af Amer) > 60 Random Glucose 78 Calcium 8.2 L Total Bilirubin 1.7 H AST 22 ALT 51 Alkaline Phosphatase 73 Total Creatine Kinase 112 CK-MB (Mass) 1.30 Troponin I 0.0460 Total Protein 6.5 Albumin 3.8 Globulin 2.7 Albumin/Globulin Ratio 1.4 Influenza Typ A,B (EIA) Attending/Attestation - Attestation I have personally seen and examined this patient.: Yes I have fully participated in the care of the patient.: Yes I have reviewed all pertinent clinical information: Yes Notes (Text): Patient seen, examined, and case discussed with day-time resident. Patient reporting pleuritic chest pain with associated productive cough and arthralgias. Patient tried Aleve and Aspirin at home but did not relieve pain. Patient has been per review of EMR. Patient has had a cardiac cath in 2016 which was normal; no CAD noted. Patient has cardiac risk factors, hypertension and lipid disorder, wherein she does not take medications for. Patient completed CT Chest in the ED: negative for PE. Possible infiltrate ( official report available in the EMR). Will observe the patient overnight given cardiac risk factor. Per CURB-65 and Pneumonia severity index; patient may warrant outpatient therapy for pneumonia. Patient is possible discharge for tomorrow. Discussed admitting orderes with day-time resident. Assessment/Plan (1) Community acquired pneumonia Status: Acute Comment: * CT Chest (06/29/17): no large central or segmental PE evident. patchy opacities within inferior right upper lobe/lingula likely related to pneumonia. Mosaic profusion may be seen in setting of small airways/small vessels disease. Right hilar adenopathy measuring 10mm in short axis * IV Abx: Rocephin 1 gram Iv Q 12hours and Azithromycin 500mg IV q daily ( active since 11/26/16). * Florastor 250mg PO bid. * Robotussin with codeine 5ml PO Q 4hour PRN cough. * Ordered for strep pnuemonia, legionella urine, and mycoplasma igm. (2) Pleuritic chest pain Status: Acute Comment: * Ordered for baseline and EKG. EKG shows LBBB similar to prior EKG available in the EMR * Placed on telemetry. Prior cardiac cath (2016): normal coronaries. * Will repeat echocardiogram given prominent systolic murmur on exam * Aspirin 325mg PO given in ED, aspirin 81mg PO daily * Will check a1c, lipid panel in AM, and TSH to rule out cardiac risk factors to chest pain * pending probnp * EKG with VAMSHI X2, q6-8 Hours (3) Gastritis Status: Chronic Comment: * Protonix 40mg Iv qdaily (4) HTN (hypertension) Status: Chronic Comment: * will restart Norvasc 5mg PO daily. Monitor vital signs and adjust accordingly (5) Hyperlipidemia Status: Chronic Comment: * Crestor 2.5mg PO qHS. Fasting lipid panel in AM (6) Prophylactic measure Status: Acute Comment: * DVT ppx: Heparin 5000 units subq12. GI ppx: Protonix 40mg Iv q daily. Florastor 250mg PO bid]
[2017-06-29] MEDS ORDERED: guaiFENesin-Codeine 100-10mg/5ml Syrup (10ml) UD PO PRN (18:42)
[2017-06-29 20:52] LABS: RBC URINE < 1 /hpf (0-3); TRANSITIONAL EPITHIAL < 1 /hpf (0-3); URINE BACTERIA RARE (<OCC); URINE BILIRUBIN NEGATIVE (NEGATIVE); URINE BLOOD NEGATIVE (NEGATIVE); URINE COLOR Straw (YELLOW); URINE GLUCOSE (UA) NORMAL (Normal); URINE KETONE NEGATIVE (NEGATIVE); URINE LEUKOCYTE ESTERASE NEG Leu/uL (Negative); URINE PROTEIN NEGATIVE (NEGATIVE); URINE UROBILINOGEN NORMAL mg/dL (0.2-1.0); WBC URINE 3 /hpf (0-5)
[2017-06-29] MEDS ORDERED: Rosuvastatin Calcium 2.5 mg Tab PO SCH (22:00)
[2017-06-29] MEDS: Albuterol-Ipratrop 3 mg / 0.5 (3 ml) UD INH SCH (22:28)
[2017-06-30] MEDS: Albuterol-Ipratrop 3 mg / 0.5 (3 ml) UD INH SCH ×2 (01:03→07:16)
[2017-06-30 02:29] LABS: ALKALINE PHOSPHATASE 75 U/L (38-126); ALT/SGPT 50 U/L (9-52); AST/SGOT 22 U/L (14-36); BLOOD UREA NITROGEN 13 mg/dL (7-17); CARBON DIOXIDE 23 mmol/L (22-30); CHLORIDE 106 mmol/L (98-107); CHOLESTEROL 150 mg/dL (0-199); GFR AFRICAN-AMERICAN > 60; GLUCOSE,RANDOM 80 mg/dL (65-105); MAGNESIUM 1.8 mg/dL (1.6-2.3); PHOSPHOROUS 3.2 mg/dL (2.5-4.5); POTASSIUM 3.3 mmol/L (3.6-5.2); SODIUM 138 mmol/L (132-148); TOTAL PROTEIN 7.2 g/dL (6.3-8.3)
[2017-06-30 02:59] LABS: THYROID STIMULATING HORMONE 2.97 mIU/L (0.46-4.68)
[2017-06-30 07:31] LABS: BASO % 0.6 % (0.0-2.0); EOS # 0.2 K/uL (0.0-0.7); EOS % 2.6 % (0.0-4.0); HEMATOCRIT 33.9 % (34.0-47.0); LYMPH # 1.7 K/uL (1.0-4.3); LYMPH % 20.5 % (20.0-40.0); MEAN CELL VOLUME 86.7 fL (81.0-99.0); MEAN CORPUSCULAR HEMOGLOBIN 28.7 pg (27.0-31.0); MEAN CORPUSCULAR HGB CONC 33.1 g/dL (33.0-37.0); MEAN PLATELET VOLUME 9.3 fL (7.2-11.7); MONO # 0.7 K/uL (0.0-0.8); MONO % 8.7 % (0.0-10.0); RED CELL DISTRIBUTION WIDTH 14.2 % (11.5-14.5); WHITE BLOOD COUNT 8.2 K/uL (4.8-10.8)
[2017-06-30 08:19] VITALS: BP 136/73; PULSE 71; RESP 18; TEMP 98.8; O2SAT 96
[2017-06-30] MEDS ORDERED: Potassium Chloride 20 mEq ER Tab PO ONE (09:16)
[2017-06-30 09:44] LABS: LEGIONELLA AG URINE NEGATIVE (NEGATIVE)
[2017-06-30] MEDS ORDERED: Saccharomyces Boulardi 250 mg Cap PO SCH ×2 (10:00)
[2017-06-30] MEDS ORDERED: Azithromycin 500 MG in Sodium Chloride 0.9% 250 ML IVPB SCH (10:00)
[2017-06-30] MEDS ORDERED: Pantoprazole 40 mg EC Tab PO SCH (10:00)
--- NOTE | 2017-06-30 10:40 | CP.PCM.DIS ---
Addendum entered and electronically signed by Adrien Talamantes 06/30/17 14:14: - Follow Up Plan Condition: GOOD (not Guarded - written in error below) Original Note: <Adrien Talamantes - Last Filed: 06/30/17 11:42> Provider - Provider Date of Admission: 06/29/17 16:06 Attending physician: Erika Lu DO Primary care physician: None (patient stated she will establish care with the [facility] ) Consults: None Time Spent in preparation of Discharge (in minutes): 45 Diagnosis - Discharge Diagnosis (1) Pneumonia Status: Acute Priority: Medium Hospital Course - Lab Results Lab Results: Most Recent Lab Values WBC 8.2 K/uL (4.8-10.8) 06/30/17 07:18 RBC 3.91 Mil/uL (3.80-5.20) 06/30/17 07:18 Hgb 11.2 g/dL (11.0-16.0) 06/30/17 07:18 Hct 33.9 % (34.0-47.0) L 06/30/17 07:18 MCV 86.7 fL (81.0-99.0) 06/30/17 07:18 MCH 28.7 pg (27.0-31.0) 06/30/17 07:18 MCHC 33.1 g/dL (33.0-37.0) 06/30/17 07:18 RDW 14.2 % (11.5-14.5) 06/30/17 07:18 Plt Count 199 K/uL (130-400) 06/30/17 07:18 MPV 9.3 fL (7.2-11.7) 06/30/17 07:18 Neut % (Auto) 67.6 % (50.0-75.0) 06/30/17 07:18 Lymph % (Auto) 20.5 % (20.0-40.0) 06/30/17 07:18 [place] % (Auto) 8.7 % (0.0-10.0) 06/30/17 07:18 Eos % (Auto) 2.6 % (0.0-4.0) 06/30/17 07:18 Baso % (Auto) 0.6 % (0.0-2.0) 06/30/17 07:18 Neut # 5.6 K/uL (1.8-7.0) 06/30/17 07:18 Lymph # 1.7 K/uL (1.0-4.3) 06/30/17 07:18 [place] # 0.7 K/uL (0.0-0.8) 06/30/17 07:18 Eos # 0.2 K/uL (0.0-0.7) 06/30/17 07:18 Baso # 0.0 K/uL (0.0-0.2) 06/30/17 07:18 ESR 30 mm/hr (0-20) H 06/29/17 20:55 APTT 34 SECONDS (21-34) 06/30/17 07:18 D-Dimer, Quantitative 244 ng/mlDDU (0-243) H 06/29/17 13:18 Sodium 138 mmol/L (132-148) 06/30/17 02:10 Potassium 3.3 mmol/L (3.6-5.2) L 06/30/17 02:10 Chloride 106 mmol/L (98-107) 06/30/17 02:10 Carbon Dioxide 23 mmol/L (22-30) 06/30/17 02:10 Anion Gap 12 (10-20) 06/30/17 02:10 BUN 13 mg/dL (7-17) 06/30/17 02:10 Creatinine 0.6 mg/dL (0.7-1.2) L 06/30/17 02:10 Est GFR ( Amer) > 60 06/30/17 02:10 Est GFR (Non-Af Amer) > 60 06/30/17 02:10 Random Glucose 80 mg/dL (65-105) 06/30/17 02:10 Hemoglobin A1c 5.5 % (4.2-6.5) 06/30/17 07:18 Calcium 8.0 mg/dl (8.6-10.4) L 06/30/17 02:10 Phosphorus 3.2 mg/dL (2.5-4.5) 06/30/17 02:10 Magnesium 1.8 mg/dL (1.6-2.3) 06/30/17 02:10 Total Bilirubin 1.0 mg/dL (0.2-1.3) 06/30/17 02:10 AST 22 U/L (14-36) 06/30/17 02:10 ALT 50 U/L (9-52) 06/30/17 02:10 Alkaline Phosphatase 75 U/L (38-126) 06/30/17 02:10 Total Creatine Kinase 118 U/L (30-135) 06/30/17 02:10 CK-MB (Mass) 1.17 ng/mL (0.0-3.38) 06/30/17 02:10 Troponin I 0.0460 ng/mL (0.00-0.120) 06/29/17 13:18 Troponin I, Quant 0.0500 ng/mL (0.00-0.120) 06/30/17 02:10 C-React Prot High Sens > 15.00 mg/L (1.00-3.00) H 06/29/17 20:55 NT-Pro-B Natriuret Pep 661 pg/mL (0-900) 06/29/17 13:18 Total Protein 7.2 g/dL (6.3-8.3) 06/30/17 02:10 Albumin 3.7 g/dL (3.5-5.0) 06/30/17 02:10 Globulin 3.5 gm/dL (2.2-3.9) 06/30/17 02:10 Albumin/Globulin Ratio 1.0 (1.0-2.1) 06/30/17 02:10 Triglycerides 70 mg/dL (0-149) D 06/30/17 02:10 Cholesterol 150 mg/dL (0-199) 06/30/17 02:10 LDL Cholesterol Direct 97 mg/dL (0-129) 06/30/17 02:10 HDL Cholesterol 58 mg/dL (30-70) 06/30/17 02:10 Procalcitonin < 0.05 NG/ML (0.19-0.49) L 06/29/17 20:55 TSH 3rd Generation 2.97 mIU/L (0.46-4.68) 06/30/17 02:10 Urine Color Straw (YELLOW) 06/29/17 20:32 Urine Clarity Clear (Clear) 06/29/17 20:32 Urine pH 7.0 (5.0-8.0) 06/29/17 20:32 Ur Specific [place] 1.017 (1.003-1.030) 06/29/17 20:32 Urine Protein Negative mg/dL (NEGATIVE) 06/29/17 20:32 Urine Glucose (UA) Normal mg/dL (Normal) 06/29/17 20:32 Urine Ketones Negative mg/dL (NEGATIVE) 06/29/17 20:32 Urine Blood Negative (NEGATIVE) 06/29/17 20:32 Urine Nitrate Negative (NEGATIVE) 06/29/17 20:32 Urine Bilirubin Negative (NEGATIVE) 06/29/17 20:32 Urine Urobilinogen Normal mg/dL (0.2-1.0) 06/29/17 20:32 Ur Leukocyte Esterase Neg Melanie/uL (Negative) 06/29/17 20:32 Urine WBC (Auto) 3 /hpf (0-5) 06/29/17 20:32 Urine RBC (Auto) < 1 /hpf (0-3) 06/29/17 20:32 Ur Squamous Epith Cells 2 /hpf (0-5) 06/29/17 20:32 Ur Transition Epith Cell < 1 /hpf (0-3) 06/29/17 20:32 Urine Bacteria Rare (<OCC) 06/29/17 20:32 Influenza Typ A,B (EIA) Negative for flu a/b (NEGATIVE) 06/29/17 20:53 Ur L.pneumophila Ag Negative (NEGATIVE) 06/29/17 20:55 Mycoplasma pneumon IgM Negative (NEGATIVE) 06/29/17 20:55 Anti-Staphylolysin O Negative (NEGATIVE) 06/29/17 20:55 Grp A Beta Strep Ag Negative (NEGATIVE) 06/29/17 20:53 - Hospital Course Hospital Course: History of Present Illness: Patient is a 62 year old female with a PMHx of questionable HTN, and HLD who presented to the ED with complaints of non-radiating, reproducible chest pain with associated wheezing, productive cough w/ green sputum, and bone and joint pain x 2 weeks. Patient states that all her symptoms exacerbated 2 days ago. She denies any modifying factors. Patient stated she had similar symptoms last year when she was diagnosed with pneumonia. She states she normally ambulates and can walk 4 blocks without getting tired. Patient did state that she needed pillows to breath properly at night. There is conflicting information between past charts and her history. Patient is a poor historian. ROS (+) Chest pain, Productive cough with green sputum, Fever, chills, SOB, generalized weakness, orthopnea, left leg swelling, left arm swelling, palpitations, neck pain, headache, blurry vision, sneezing, ringing in the ears (chronic). (-) hemoptysis, vomitting, sick contacts, nausea, changes in bowel habits, urinary symptoms. PMH: HTN?, HLD, Gastritis PSHx: Denies, Cardiac Cath (per chart) Allergies: NKDA Social Hx: Denies tobacco, alcohol, or illicit drug use Hos: Early last year for Pneumonia Fam Hx: She does not know Meds: PRN Aleve and ASA 81. PMD: Denies. Per chart patient has been to [facility] HOSPITAL COURSE: This is a patient who, given her clinical symptoms and imaging results, was treated for pneumonia. A CT Chest (06/29/17) "showed no large central or segmental PE evident. patchy opacities within inferior right upper lobe/lingula likely related to pneumonia. Mosaic profusion may be seen in setting of small airways/small vessels disease. Right hilar adenopathy measuring 10mm in short axis". To treat her infection she was given IV Abx: Rocephin 1 gram IV Q 12hours and Azithromycin 500mg IV q daily. Lab tests were ordered to elucidate a specific etiology for her pneumonia. Her influenza, legionella Ag, mycoplasma IgM, Anti-staphylolysin, Grp A Beta Strep Ag, were ALL negative. Her procalcitonin was low at 0.05. She never had leukocytosis or fever during her stay. Abnormal lab values included elevated ESR and CRP. She will be discharged with azithromycin 500mg PO QD for 7 days to be taken with a probiotic yogurt. She had an elevated d-dimer. As mentioned above, her CTA did not show a PE. In addition to her respiratory symptoms she also complained of chest pain. Troponins were drawn q6h which were negative x3. An EKG showed LBBB which was similar to a prior EKG on a prior admission. Etiologies for her chest pain were investigated. A lipid panel was WNL. A pro-bnp was WNL. A TSH was WNL. At one point her BP was elevated and she was given hydralazine 10mg IVP once which brought her BP to normal range. She will be discharged with norvac 5mg po qd. Discharge Exam - Head Exam Head Exam: ATRAUMATIC, NORMAL INSPECTION, NORMOCEPHALIC - Additional Findings Additional findings: - Constitutional Appears: Non-toxic, No Acute Distress - Head Exam Head Exam: ATRAUMATIC, NORMAL INSPECTION, NORMOCEPHALIC - Eye Exam Eye Exam: EOMI, PERRL. absent: Scleral icterus - ENT Exam ENT Exam: Mucous Membranes Moist, Normal External Ear Exam, Normal Oropharynx, TM's Normal Bilaterally - Neck Exam Neck exam: Positive for: Lymphadenopathy (Cervical), Tenderness (lateral neck b/ l). Negative for: Thyromegaly - Respiratory Exam Respiratory Exam: Chest Wall Tenderness L>R, Clear to Auscultation Bilateral. absent: Rales, Rhonchi, Wheezes, Respiratory Distress, Stridor - Cardiovascular Exam Cardiovascular Exam: +S1, +S2, Systolic Murmur. absent: Bradycardia, Tachycardia, +S4 - GI/Abdominal Exam GI & Abdominal Exam: Normal Bowel Sounds, Soft. absent: Distended, Firm, Tenderness - Extremities Exam Extremities exam: Positive for: normal capillary refill, normal inspection, pedal pulses present. Negative for: calf tenderness, pedal edema - Neurological Exam Neurological exam: Alert, Oriented x3 - Psychiatric Exam Psychiatric exam: Normal Affect, Normal Mood - Skin Skin Exam: Dry, Intact, Normal Color, Warm Discharge Plan - Discharge Medications Prescriptions: amLODIPine [Norvasc] 5 mg PO DAILY 30 Days #30 tab Aspirin [Aspirin Chewable] 81 mg PO DAILY 30 Days #30 chew Azithromycin 500 mg PO DAILY 7 Days #7 tablet Promethazine/Codeine [Phenergan/Codeine Oral Syrup] 5 ml PO Q4H PRN #120 udc PRN Reason: Cough - Follow Up Plan Condition: GUARDED Disposition: HOME/ ROUTINE Instructions: Aspirin (By mouth), Azithromycin (By mouth), Amlodipine (By mouth ), Promethazine/Codeine (By mouth), Chest Pain (DC), Heart Healthy Diet (DC), Pneumonia (DC) Additional Instructions: Patient is medically stable for discharge. Patient will be discharged with scripts for the following medications which she should take as instructed. These medications should be taken indefinitely until her primary medical doctor makes further recommendations: Amlodipine [norvasc] 5mg PO QD, take 1 tablet by mouth once a day Aspirin 81mg PO QD, take 1 tablet by mouth once a day Patient will be discharged with scripts for the following medications which she should take as instructed to treat her current infections: Azithromycin 500mg PO QD for 7 days, take 1 tablet by mouth once a day. It is suggested patient take a probiotic yogurt 3 hours prior to taking Azithromycin. Promethazine/Codeine 5 ml by mouth as needed for cough Patient is to schedule an appointment with the [facility] and follow-up in 4 weeks. The clinic number was given to her and inserted in her cell phone by attending Dr Lu. At that time she should receive a flu shot and a pneumococcal vaccine. She will need a follow-up chest x-ray in 1 month to see resolution of infection. Referrals: [facility] [Outside] <Erika Lu V - Last Filed: 06/30/17 15:50> Provider - Provider Date of Admission: 06/29/17 16:06 Attending physician: Erika Lu, DO Hospital Course - Lab Results Lab Results: Most Recent Lab Values WBC 8.2 K/uL (4.8-10.8) 06/30/17 07:18 RBC 3.91 Mil/uL (3.80-5.20) 06/30/17 07:18 Hgb 11.2 g/dL (11.0-16.0) 06/30/17 07:18 Hct 33.9 % (34.0-47.0) L 06/30/17 07:18 MCV 86.7 fL (81.0-99.0) 06/30/17 07:18 MCH 28.7 pg (27.0-31.0) 06/30/17 07:18 MCHC 33.1 g/dL (33.0-37.0) 06/30/17 07:18 RDW 14.2 % (11.5-14.5) 06/30/17 07:18 Plt Count 199 K/uL (130-400) 06/30/17 07:18 MPV 9.3 fL (7.2-11.7) 06/30/17 07:18 Neut % (Auto) 67.6 % (50.0-75.0) 06/30/17 07:18 Lymph % (Auto) 20.5 % (20.0-40.0) 06/30/17 07:18 [place] % (Auto) 8.7 % (0.0-10.0) 06/30/17 07:18 Eos % (Auto) 2.6 % (0.0-4.0) 06/30/17 07:18 Baso % (Auto) 0.6 % (0.0-2.0) 06/30/17 07:18 Neut # 5.6 K/uL (1.8-7.0) 06/30/17 07:18 Lymph # 1.7 K/uL (1.0-4.3) 06/30/17 07:18 [place] # 0.7 K/uL (0.0-0.8) 06/30/17 07:18 Eos # 0.2 K/uL (0.0-0.7) 06/30/17 07:18 Baso # 0.0 K/uL (0.0-0.2) 06/30/17 07:18 ESR 30 mm/hr (0-20) H 06/29/17 20:55 APTT 34 SECONDS (21-34) 06/30/17 07:18 D-Dimer, Quantitative 244 ng/mlDDU (0-243) H 06/29/17 13:18 Sodium 138 mmol/L (132-148) 06/30/17 02:10 Potassium 3.3 mmol/L (3.6-5.2) L 06/30/17 02:10 Chloride 106 mmol/L (98-107) 06/30/17 02:10 Carbon Dioxide 23 mmol/L (22-30) 06/30/17 02:10 Anion Gap 12 (10-20) 06/30/17 02:10 BUN 13 mg/dL (7-17) 06/30/17 02:10 Creatinine 0.6 mg/dL (0.7-1.2) L 06/30/17 02:10 Est GFR ( Amer) > 60 06/30/17 02:10 Est GFR (Non-Af Amer) > 60 06/30/17 02:10 Random Glucose 80 mg/dL (65-105) 06/30/17 02:10 Hemoglobin A1c 5.5 % (4.2-6.5) 06/30/17 07:18 Calcium 8.0 mg/dl (8.6-10.4) L 06/30/17 02:10 Phosphorus 3.2 mg/dL (2.5-4.5) 06/30/17 02:10 Magnesium 1.8 mg/dL (1.6-2.3) 06/30/17 02:10 Total Bilirubin 1.0 mg/dL (0.2-1.3) 06/30/17 02:10 AST 22 U/L (14-36) 06/30/17 02:10 ALT 50 U/L (9-52) 06/30/17 02:10 Alkaline Phosphatase 75 U/L (38-126) 06/30/17 02:10 Total Creatine Kinase 118 U/L (30-135) 06/30/17 02:10 CK-MB (Mass) 1.17 ng/mL (0.0-3.38) 06/30/17 02:10 Troponin I 0.0460 ng/mL (0.00-0.120) 06/29/17 13:18 Troponin I, Quant 0.0500 ng/mL (0.00-0.120) 06/30/17 02:10 C-React Prot High Sens > 15.00 mg/L (1.00-3.00) H 06/29/17 20:55 NT-Pro-B Natriuret Pep 661 pg/mL (0-900) 06/29/17 13:18 Total Protein 7.2 g/dL (6.3-8.3) 06/30/17 02:10 Albumin 3.7 g/dL (3.5-5.0) 06/30/17 02:10 Globulin 3.5 gm/dL (2.2-3.9) 06/30/17 02:10 Albumin/Globulin Ratio 1.0 (1.0-2.1) 06/30/17 02:10 Triglycerides 70 mg/dL (0-149) D 06/30/17 02:10 Cholesterol 150 mg/dL (0-199) 06/30/17 02:10 LDL Cholesterol Direct 97 mg/dL (0-129) 06/30/17 02:10 HDL Cholesterol 58 mg/dL (30-70) 06/30/17 02:10 Procalcitonin < 0.05 NG/ML (0.19-0.49) L 11/15/17 20:55 TSH 3rd Generation 2.97 mIU/L (0.46-4.68) 06/30/17 02:10 Urine Color Straw (YELLOW) 06/29/17 20:32 Urine Clarity Clear (Clear) 06/29/17 20:32 Urine pH 7.0 (5.0-8.0) 06/29/17 20:32 Ur Specific [place] 1.017 (1.003-1.030) 06/29/17 20:32 Urine Protein Negative mg/dL (NEGATIVE) 06/29/17 20:32 Urine Glucose (UA) Normal mg/dL (Normal) 06/29/17 20:32 Urine Ketones Negative mg/dL (NEGATIVE) 06/29/17 20:32 Urine Blood Negative (NEGATIVE) 06/29/17 20:32 Urine Nitrate Negative (NEGATIVE) 06/29/17 20:32 Urine Bilirubin Negative (NEGATIVE) 06/29/17 20:32 Urine Urobilinogen Normal mg/dL (0.2-1.0) 06/29/17 20:32 Ur Leukocyte Esterase Neg Melanie/uL (Negative) 06/29/17 20:32 Urine WBC (Auto) 3 /hpf (0-5) 06/29/17 20:32 Urine RBC (Auto) < 1 /hpf (0-3) 06/29/17 20:32 Ur Squamous Epith Cells 2 /hpf (0-5) 06/29/17 20:32 Ur Transition Epith Cell < 1 /hpf (0-3) 06/29/17 20:32 Urine Bacteria Rare (<OCC) 06/29/17 20:32 Influenza Typ A,B (EIA) Negative for flu a/b (NEGATIVE) 06/29/17 20:53 Ur L.pneumophila Ag Negative (NEGATIVE) 06/29/17 20:55 Mycoplasma pneumon IgM Negative (NEGATIVE) 06/29/17 20:55 Anti-Staphylolysin O Negative (NEGATIVE) 06/29/17 20:55 Grp A Beta Strep Ag Negative (NEGATIVE) 06/29/17 20:53 Attending/Attestation - Attestation I have personally seen and examined this patient.: Yes I have fully participated in the care of the patient.: Yes I have reviewed all pertinent clinical information, including history, physical exam and plan: Yes Notes (Text): Patient seen, examined, and case discussed with day-time resident. Patient reports she is feeling much better. VAMSHI X3: negative. Lipid panel within normal; TSH: within normal; no acute change in EKGs in compariosn to prior EKG. Electrolytes replaced prior to discharge. Prescriptions: 1) Z-pack for treatment of pneumonia 2) Promethazine w codeine 5mL PO Q 4H PRN cough (120cc/0 refills) 3) Aspirin 81mg PO once a daily (OTC) 4) Norvasc 5mg PO once a daily (hypertension) Patient recommended when completes therapy for pneumonia; to have a follow-up chest xray in a 1 month, and receive the influenza vaccination and/or pneumonia vaccinations. patient recommended to take probiotic yogurt which is more affordable for patient to help regulate gut presley while on antibiotic therapy. Patient recommended to follow-up in the clinic, [facility], [phone] to establish and follow-up from hospitalization. This is a summary of patient's hospitalization. Please see EMR for further details. Discharge Diagnoses: (1) Community acquired pneumonia Status: Acute Comment: * CT Chest (06/29/17): no large central or segmental PE evident. patchy opacities within inferior right upper lobe/lingula likely related to pneumonia. Mosaic profusion may be seen in setting of small airways/small vessels disease. Right hilar adenopathy measuring 10mm in short axis * IV Abx: Rocephin 1 gram Iv Q 12hours and Azithromycin 500mg IV q daily ( active since 11/26/16). * Discharge on Z-pack and promethazine 5ml PO Q 4H PRN cough * Florastor 250mg PO bid. * Robotussin with codeine 5ml PO Q 4hour PRN cough. * strep pnuemonia, legionella urine, and mycoplasma igm: negative * CURB-65 and PSI reflect outpatient therapy and clinically patient supports outpatient therapy. (2) Pleuritic chest pain Status: resolved Comment: * Ordered for baseline and EKG. EKG shows LBBB similar to prior EKG available in the EMR * Placed on telemetry. Prior cardiac cath (2016): normal coronaries. * Patient has prior echocardiogram from earlier this year * Aspirin 325mg PO given in ED, aspirin 81mg PO daily * a1c; lipid panel, and TSH: within normal * probnp: low * ROMIX3: negative (3) Gastritis Status: Chronic Comment: * Protonix 40mg Iv qdaily (4) HTN (hypertension) Status: Chronic Comment: * will restart Norvasc 5mg PO daily. Monitor vital signs and adjust accordingly (5) Hyperlipidemia Status: Chronic Comment: * start Crestor 2.5mg PO qHS * Lipid panel: within normal * No need for statin therapy at this time upon discharge (6) Prophylactic measure Status: Acute Comment: * DVT ppx: Heparin 5000 units subq12. GI ppx: Protonix 40mg Iv q daily. Florastor 250mg PO bid
[2017-06-30] MEDS ORDERED: cefTRIAXone IV 1 gm in Dextros 50 ML IVPB SCH (11:00)
--- NOTE | 2017-06-30 22:08 | CARD ---
APPROVED REPORT EKG Measurement Heart [id number] <Conclusion> Sinus rhythm with 1st degree AV block Incomplete left bundle branch block Left ventricular hypertrophy with repolarization abnormality Abnormal ECG
--- NOTE | 2017-06-30 22:25 | CARD ---
APPROVED REPORT EKG Measurement Heart [id number] <Conclusion> Sinus rhythm with 1st degree AV block Incomplete left bundle branch block Left ventricular hypertrophy with repolarization abnormality Abnormal ECG
--- NOTE | 2017-07-01 11:11 | CARD ---
APPROVED REPORT EKG Measurement Heart [id number] [place] [id number] <Conclusion> Sinus rhythm with 1st degree AV block Incomplete left bundle branch block Left ventricular hypertrophy with repolarization abnormality Abnormal ECG
== END 2017-06-30 13:19 | disposition home or self-care (01) | DRG 90 ==
LOC: C.ER 12:01 → C.9E 16:06 → C.6T 16:57
PROVIDERS: ADMIT Hospitalist; ATTEND Hospitalist
DX: J18.9 Pneumonia, unspecified organism (principal); I11.9 Hypertensive heart disease without heart failure; E78.5 Hyperlipidemia, unspecified; I44.7 Left bundle-branch block, unspecified; K29.70 Gastritis, unspecified, without bleeding; Z79.82 Long term (current) use of aspirin; Z87.01 Personal history of pneumonia (recurrent); R59.0 Localized enlarged lymph nodes; R07.9 Chest pain, unspecified

== ENCOUNTER 2017-09-26 10:52 | Emergency (ER) | payer OTHER ==
[2017-09-26 10:53] VITALS: BMI 34.0
--- NOTE | 2017-09-26 13:43 | C.PDOC ---
Time Seen by Provider: 09/26/17 13:09 Chief Complaint (Nursing): Chest Pain History Per: Patient Onset/Duration Of Symptoms: Days (15), Waxing/Waning Current Symptoms Are (Timing): Still Present Severity: Moderate Quality: "Pain" Modifying Factors: Other Indicated Below Exacerbating Factors: Movement Alleviating Factors: Rest Additional History Per: Prior Records Past Medical History Reviewed: Historical Data, Nursing Documentation, Vital Signs Vital Signs: Last Vital Signs Temp 98.3 F 09/26/17 16:24 Pulse 53 L 09/26/17 16:24 Resp 16 09/26/17 16:24 BP 147/75 09/26/17 16:24 Pulse Ox 99 09/26/17 16:24 - Medical History PMH: Gastritis, HTN, Pneumonia Surgical History: Carotid Endarterectomy - [facility] Procedures MEASURE OF CARDIAC SAMPL & PRESSURE, L HEART, PERC APPROACH (10/10/15) PLAIN RADIOGRAPHY OF LEFT HEART USING LOW OSMOLAR CONTRAST (10/10/15) Family History: States: Unknown Family Hx - Social History Hx Tobacco Use: No Hx Alcohol Use: No Hx Substance Use: No - Immunization History Hx Tetanus Toxoid Vaccination: No Hx Influenza Vaccination: No Hx Pneumococcal Vaccination: Yes Review Of Systems Except As Marked, All Systems Reviewed And Found Negative. Constitutional: Negative for: Fever, Weakness Cardiovascular: Positive for: Chest Pain (left) Respiratory: Negative for: Cough, Hemoptysis Gastrointestinal: Negative for: Vomiting, Abdominal Pain Genitourinary: Negative for: Dysuria Musculoskeletal: Negative for: Neck Pain Skin: Negative for: Rash Neurological: Negative for: Weakness, Numbness Physical Exam - Physical Exam Appears: Non-toxic, No Acute Distress Skin: Normal Color, Warm, Dry, No Rash Head: Atraumatic, Normacephalic Eye(s): bilateral: Normal Inspection, PERRL, EOMI Neck: Normal ROM, Supple Chest: Symmetrical, No Deformity, Tenderness (left anterior chest wall), No Subcutaneous Emphysema Cardiovascular: Rhythm Regular Respiratory: Normal Breath Sounds, No Accessory Muscle Use Gastrointestinal/Abdominal: Soft, No Tenderness Extremity: Normal ROM, No Calf Tenderness Neurological/Psych: Oriented x3, Normal Motor, Normal Sensation ED Course And Treatment - Laboratory Results Result Diagrams: 09/26/17 14:09 09/26/17 14:09 Lab Interpretation: No Acute Changes ECG: Interpreted By Me, Viewed By Me ECG Rhythm: Sinus Rhythm, 1st Degree HB, Nonspecific Changes ECG Interpretation: Abnormal Interpretation Of ECG: LVH with strain pattern Rate From EC O2 Sat by Pulse Oximetry: 97 Pulse Ox Interpretation: Normal - Radiology CXR: Viewed By Me, Read By Radiologist CXR Interpretation: Yes: No Acute Disease - CT Scan/US b/l LE duplex Other Rad Studies (CT/US): Read By Radiologist, Radiology Report Reviewed CT/US Interpretation: Negative for DVT Progress - Interventions Interventions:: Observation - Medications Administered Oral: Aspirin Intravenous: Antihypertensive - Data Reviewed Data Reviewed: Lab, Diagnostic imaging, EKG, Old records - Patient Status Patient status: Mostly improved - Continuity of Care Discussed patient case with:: Patient, ED Nurse - Patient Plan Patient Plan: Discharge, F/U with PCP Disposition Counseled Patient/Family Regarding: Studies Performed, Diagnosis, Need For Followup, Rx Given - Disposition Referrals: [facility] [Outside] Disposition: HOME/ ROUTINE Disposition Time: 16:31 Condition: IMPROVED Additional Instructions: Follow up in the clinic within 1-2 weeks for further evaluation and treatment. Return to the ER if you develop worsening of symptoms or if you have any other concerns. Prescriptions: Aspirin [Ecotrin] 81 mg PO DAILY #30 tabec Enalapril Maleate 5 mg PO DAILY #30 tablet Instructions: Noncardiac Chest Pain (ED), Hypertension (ED) Print Language: YAKUT - Clinical Impression Clinical Impression: Left-sided chest wall pain, Hypertension
[2017-09-26 14:16] LABS: BASO # 0.1 K/uL (0.0-0.2); BASO % 0.9 % (0.0-2.0); EOS # 0.2 K/uL (0.0-0.7); HEMOGLOBIN 12.9 g/dL (11.0-16.0); LYMPH # 2.5 K/uL (1.0-4.3); LYMPH % 36.5 % (20.0-40.0); MEAN CELL VOLUME 86.7 fL (81.0-99.0); MEAN CORPUSCULAR HEMOGLOBIN 29.2 pg (27.0-31.0); MEAN CORPUSCULAR HGB CONC 33.6 g/dL (33.0-37.0); MEAN PLATELET VOLUME 9.2 fL (7.2-11.7); MONO # 0.5 K/uL (0.0-0.8); MONO % 6.7 % (0.0-10.0); NEUT # 3.6 K/uL (1.8-7.0); NEUT % 52.9 % (50.0-75.0); NRBC % 0.1 % (0.0-2.0); RBC 4.44 Mil/uL (3.80-5.20); RED CELL DISTRIBUTION WIDTH 14.8 % (11.5-14.5); WHITE BLOOD COUNT 6.8 K/uL (4.8-10.8)
[2017-09-26 14:27] LABS: D DIMER < 200 ng/mlDDU (0-243); PARTIAL THROMBOPLASTIN TIME 35 SECONDS (21-34); PROTHROMBIN TIME 11.7 SECONDS (9.7-12.2)
--- NOTE | 2017-09-26 14:27 | RAD ---
HISTORY: Left chest pain COMPARISON: Chest x-ray performed 06/29/17 TECHNIQUE: Chest PA and lateral FINDINGS: Examination limited by habitus. LUNGS: No focal consolidation. Please note that chest x-ray has limited sensitivity for the detection of pulmonary masses. PLEURA: No significant pleural effusion identified. No definite pneumothorax . CARDIOVASCULAR: Heart size appears within normal limits. Ectatic aorta. Atherosclerotic calcifications. OSSEOUS STRUCTURES: Degenerative changes. Scoliosis. VISUALIZED UPPER ABDOMEN: Unremarkable. OTHER FINDINGS: None. IMPRESSION: No focal consolidation.
[2017-09-26 14:33] LABS: ALB/GLOB RATIO 1.3 (1.0-2.1); ALBUMIN 4.4 g/dL (3.5-5.0); ALT/SGPT 43 U/L (9-52); AST/SGOT 36 U/L (14-36); BLOOD UREA NITROGEN 14 mg/dL (7-17); CALCIUM 9.5 mg/dl (8.6-10.4); GFR AFRICAN-AMERICAN > 60; GFR NON-AFRICAN AMERICAN > 60
[2017-09-26 14:37] LABS: SQUAMOUS EPITHIAL 6 /hpf (0-5); URINE BACTERIA RARE (<OCC); URINE BILIRUBIN NEGATIVE (NEGATIVE); URINE BLOOD NEGATIVE (NEGATIVE); URINE CLARITY Clear (Clear); URINE COLOR Yellow (YELLOW); URINE GLUCOSE (UA) NORMAL (Normal); URINE LEUKOCYTE ESTERASE TRACE Leu/uL (Negative); URINE NITRATE NEGATIVE (NEGATIVE); URINE PROTEIN NEGATIVE (NEGATIVE); URINE UROBILINOGEN NORMAL mg/dL (0.2-1.0)
[2017-09-26 14:43] LABS: B-TYPE NATRIURETIC PEPTIDE 340 pg/mL (0-900)
[2017-09-26 14:45] LABS: BARBITURATES, UR NEGATIVE (NEGATIVE); BENZODIAZEPINES, UR NEGATIVE (NEGATIVE); OPIATES, UR NEGATIVE (NEGATIVE); PHENCYCLIDINE, UR NEGATIVE (NEGATIVE)
[2017-09-26] MEDS ORDERED: Enalaprilat 2.5 MG/2 ML IVP STA (15:14)
[2017-09-26] MEDS ORDERED: Enalaprilat 2.5 MG/2 ML ONE (15:25)
--- NOTE | 2017-09-26 15:54 | VASCLAB ---
PROCEDURE: Lower Extremity Venous Duplex Exam. HISTORY: Left leg , r/o DVT PRIORS: None. TECHNIQUE: Bilateral common femoral, femoral, popliteal and posterior tibial, peroneal and great saphenous veins were evaluated. Flow was assessed with color Doppler, compressibility, assessment of phasic flow and augmentation response. Report prepared by Vitor Reyes, AYSE, RVT FINDINGS: RIGHT: 1. Common Femoral Vein: 1.1. Compressibility - Fully compressible: Thrombus - None : Flow - Phasic: Augmentation -Normal: Reflux - None. 2. Femoral Vein: 2.1. Compressibility - Fully compressible: Thrombus - None : Flow - Phasic: Augmentation -Normal: Reflux - None. 3. Popliteal Vein: 3.1. Compressibility - Fully compressible: Thrombus - None : Flow - Phasic: Augmentation -Normal: Reflux - None. 4. Posterior Tibial Vein: 4.1. Compressibility - Fully compressible: Thrombus - None: Flow - Phasic: Augmentation -Normal: Reflux - None. 5. Peroneal Vein: 5.1. Compressibility - Fully compressible: Thrombus - None: Flow - Phasic: Augmentation -Normal: Reflux - None. 6. Great Saphenous Vein: 6.1. Compressibility - Fully compressible: Thrombus - None: Flow - Phasic: Augmentation - Normal: Reflux - None. LEFT: 1. Common Femoral Vein: 1.1. Compressibility - Fully compressible: Thrombus - None: Flow - Phasic: Augmentation -Normal: Reflux - None. 2. Femoral Vein: 2.1. Compressibility - Fully compressible: Thrombus - None: Flow - Phasic: Augmentation -Normal: Reflux - None. 3. Popliteal Vein: 3.1. Compressibility - Fully compressible: Thrombus - None : Flow - Phasic: Augmentation -Normal: Reflux - None. 4. Posterior Tibial Vein: 4.1. Compressibility - Fully compressible: Thrombus - None: Flow - Phasic: Augmentation -Normal: Reflux - None. 5. Peroneal Vein: 5.1. Compressibility - Fully compressible: Thrombus - None: Flow - Phasic: Augmentation -Normal: Reflux - None. 6. Great Saphenous Vein: 6.1. Compressibility - Fully compressible: Thrombus - None: Flow - Phasic: Augmentation - Normal: Reflux - Severe. OTHER FINDINGS: Right: None significant. Left: None significant. IMPRESSION: Right: No evidence of deep or superficial vein thrombosis of the right lower extremity. Normal valve function noted of the right side. Left: No evidence of deep or superficial vein thrombosis of the left lower extremity. Normal valve function noted of the left side. Severe valvular incompetence of the left greater saphenous vein.
[2017-09-26 16:25] VITALS: BP 147/75; PULSE 53; RESP 16; TEMP 98.3
[2017-09-26 16:35] VITALS: O2SAT 97
--- NOTE | 2017-09-28 16:40 | CARD ---
APPROVED REPORT EKG Measurement Heart [id number] <Conclusion> Sinus rhythm with 1st degree AV block Left ventricular hypertrophy with repolarization abnormality Abnormal ECG
== END 2017-09-26 16:58 | disposition home or self-care (01) ==
LOC: C.ER 10:52
DX: R07.89 Other chest pain (principal); I10 Essential (primary) hypertension

== ENCOUNTER 2017-10-18 12:54 | Inpatient (IN) | payer OTHER ==
[2017-10-18 12:54] VITALS: BMI 34.7
--- NOTE | 2017-10-18 13:55 | C.PDOC ---
History Of Present Illness 62 y/o female presents to the emergency department complaining of chest pain for 5 days. Patient was at the clinic for an appointment today when she had an abnormal EKG and was brought here for further evaluation. She states this is her 5th ED visit for the same. She has not had cardiology follow up or a stress test done, but patient was told she has a murmur. Pain worsens with exertion and patient also complains of shortness of breath. Pain is described as throbbing and radiates to the left arm. PMD: the clinic Time Seen by Provider: 10/18/17 13:20 Chief Complaint (Nursing): Chest Pain History Per: Patient History/Exam Limitations: no limitations Onset/Duration Of Symptoms: Days (x5) Current Symptoms Are (Timing): Still Present Associated Symptoms: Dyspnea Exacerbating Factors: Exertion Past Medical History Reviewed: Historical Data, Nursing Documentation, Vital Signs Vital Signs: Last Vital Signs Temp 97.9 F 10/18/17 16:47 Pulse 68 10/18/17 16:47 Resp 18 10/18/17 16:47 BP 147/76 10/18/17 16:47 Pulse Ox 96 10/18/17 16:47 - Medical History PMH: Back Problems, Gastritis, HTN, Pneumonia Denies: Chronic Kidney Disease Surgical History: Carotid Endarterectomy - [facility] Procedures MEASURE OF CARDIAC SAMPL & PRESSURE, L HEART, PERC APPROACH (10/10/15) PLAIN RADIOGRAPHY OF LEFT HEART USING LOW OSMOLAR CONTRAST (10/10/15) Family History: States: Unknown Family Hx - Social History Hx Tobacco Use: No Hx Alcohol Use: No Hx Substance Use: No - Immunization History Hx Tetanus Toxoid Vaccination: No Hx Influenza Vaccination: No Hx Pneumococcal Vaccination: Yes Review Of Systems Except As Marked, All Systems Reviewed And Found Negative. Cardiovascular: Positive for: Chest Pain (radiating to left arm) Respiratory: Positive for: Shortness of Breath, SOB with Excertion Physical Exam - Physical Exam Appears: Non-toxic, No Acute Distress Skin: Normal Color, Warm, Dry Head: Atraumatic, Normacephalic Eye(s): bilateral: Normal Inspection, PERRL, EOMI Nose: Normal Oral Mucosa: Moist Neck: Normal, Normal ROM, Supple Chest: Symmetrical, No Tenderness Cardiovascular: Murmur (3/6 systolic ejection murmur) Respiratory: Normal Breath Sounds, No Accessory Muscle Use, No Other ( respiratory distress) Gastrointestinal/Abdominal: Soft, No Tenderness, No Distention Extremity: Bilateral: Atraumatic, Normal Color And Temperature, Normal ROM Neurological/Psych: Oriented x3, Normal Speech, Normal Motor, Normal Sensation, No Other (focal deficits) Gait: Steady ED Course And Treatment - Laboratory Results Result Diagrams: 10/18/17 13:55 10/18/17 13:55 ECG: Interpreted By Me, Viewed By Me ECG Rhythm: Sinus Rhythm Interpretation Of ECG: NSR with 1st degree AV Block, Q wave in Lead III, T-wave inversions in Lead I and Lead AVL, normal axis and LVH Rate From EC O2 Sat by Pulse Oximetry: 100 (RA) Pulse Ox Interpretation: Normal Medical Decision Making Medical Decision Making: Initial Impression: Chest pain and shortness of breath Time: 13:20 Initial Plan: * EKG * B-type natriuretic peptide * Troponin I * CMP * CBC * Chest x-ray Progress Time: 15:[address] Gaudencio Caballero, hospitalist, who requested D-Dimer be ordered. As per Dr. Caballero's request, D-Dimer has been ordered. Disposition Discussed With : Gaudencio Caballero Counseled Patient/Family Regarding: Studies Performed, Diagnosis - Disposition Disposition: HOSPITALIZED Disposition Time: 15:10 Condition: FAIR - POA Core Measure Indicators: Chest Pain - Clinical Impression Clinical Impression: Chest pain - Scribe Statement The provider has reviewed the documentation as recorded by the Scribe (Nubia Murry) Provider Attestation: All medical record entries made by the Scribe were at my direction and personally dictated by me. I have reviewed the chart and agree that the record accurately reflects my personal performance of the history, physical exam, medical decision making, and the department course for this patient. I have also personally directed, reviewed, and agree with the discharge instructions and disposition.
[2017-10-18 14:18] LABS: ALB/GLOB RATIO 1.4 (1.0-2.1); ALBUMIN 4.2 g/dL (3.5-5.0); ALT/SGPT 39 U/L (9-52); AST/SGOT 33 U/L (14-36); BLOOD UREA NITROGEN 17 mg/dL (7-17); GFR AFRICAN-AMERICAN > 60; GFR NON-AFRICAN AMERICAN > 60
[2017-10-18 14:19] LABS: BASO % 0.4 % (0.0-2.0); EOS # 0.2 K/uL (0.0-0.7); EOS % 2.4 % (0.0-4.0); HEMOGLOBIN 12.8 g/dL (11.0-16.0); LYMPH # 2.3 K/uL (1.0-4.3); LYMPH % 31.2 % (20.0-40.0); MEAN CELL VOLUME 86.7 fL (81.0-99.0); MEAN CORPUSCULAR HEMOGLOBIN 29.4 pg (27.0-31.0); MEAN CORPUSCULAR HGB CONC 33.9 g/dL (33.0-37.0); MEAN PLATELET VOLUME 9.1 fL (7.2-11.7); MONO # 0.5 K/uL (0.0-0.8); NEUT # 4.4 K/uL (1.8-7.0); RBC 4.37 Mil/uL (3.80-5.20); RED CELL DISTRIBUTION WIDTH 14.3 % (11.5-14.5); WHITE BLOOD COUNT 7.5 K/uL (4.8-10.8)
[2017-10-18 14:25] LABS: B-TYPE NATRIURETIC PEPTIDE 1040 pg/mL (0-900)
--- NOTE | 2017-10-18 14:25 | RAD ---
PROCEDURE: CHEST RADIOGRAPH, 1 VIEW HISTORY: chest pain COMPARISON: 09/26/2017 FINDINGS: LUNGS: Poor inspiratory effort, increasing pulmonary markings particularly at the right base. A pneumonia is not excluded. PLEURA: No pneumothorax or pleural fluid seen. CARDIOVASCULAR: Cardiomegaly. No evidence of acute, significant cardiovascular disease. OSSEOUS STRUCTURES: No significant abnormalities. VISUALIZED UPPER ABDOMEN: Normal. OTHER FINDINGS: None. IMPRESSION: Questionable infiltrate/atelectasis right lower lobe.
--- NOTE | 2017-10-18 16:24 | CP.PCM.HP ---
History of Present Illness - History of Present Illness History of Present Illness: Patient is a 62 y/o female with past medical history of HTN, CAD, HLD, and pneumonia who presents to the ED with complaint of chest pain. She states the chest pain has been going on for a while now, and she came to the ED today because last month, her EKG in the clinic showed an abnormal rhythm. Patient states she had come to [facility] 4x in total for the same chest pain. She describes the pain as waxing and waning, pleuritic, stabbing, and pressure-like , with associated shortness of breath and palpitations. The chest pain radiates to the left jaw, neck, and arm and is non-reproducible. She states the chest pain appears only upon exertion (walking, eating, lifting), and improves with rest. Patient rates the pain as 6/10. Currently, patient complains of radiating chest pain, headache, shortness of breath, palpitations, left arm and leg swelling, and numbness and tingling in the hands bilaterally. She denies dizziness, lightheadedness, syncope, fever, chills, abdominal pain, cough, n/v/d /c, and leg pain. PMD: [facility] Advanced directive/proxy: none Code status: full PMHx: CAD, HTN, HLD, pneumonia, gastritis SHx: cardiac catheterization Allergies: NKDA FHx: auntsbreast and ovarian CA Meds: Enalapril 5mg 1 tab QD, ASA Social: denies tobacco, alcohol, and drug use; former seamstress, lives alone Present on Admission - Present on Admission Any Indicators Present on Admission: No Review of Systems - Review of Systems All systems: reviewed and no additional remarkable complaints except (as per HPI ) Past Patient History - Infectious Disease Hx of Infectious Diseases: None - Past Medical History & Family History Past Medical History?: Yes - Past Social History Smoking Status: Never Smoked - CARDIAC Hx Hypertension: Yes - PULMONARY Hx Pneumonia: Yes - NEUROLOGICAL Hx Neurological Disorder: No - HEENT Hx HEENT Problems: No Hx Cataracts: (left eye..PT DENIES 09/26/17) - RENAL Hx Chronic Kidney Disease: No - ENDOCRINE/METABOLIC Hx Endocrine Disorders: No - HEMATOLOGICAL/ONCOLOGICAL Hx Blood Disorders: No - INTEGUMENTARY Hx Dermatological Problems: No - MUSCULOSKELETAL/RHEUMATOLOGICAL Hx Musculoskeletal Disorders: Yes Hx Back Pain: Yes - GASTROINTESTINAL Hx Gastritis: Yes - GENITOURINARY/GYNECOLOGICAL Hx Genitourinary Disorders: No - PSYCHIATRIC Hx Substance Use: No - SURGICAL HISTORY Hx Carotid Endarterectomy: Yes - ANESTHESIA Hx Anesthesia: Yes Hx Anesthesia Reactions: No Meds Allergies/Adverse Reactions: Allergies Allergy/AdvReac Type Severity Reaction Status Date / Time No Known Allergies Allergy Verified 10/18/17 13:11 Physical Exam - Constitutional Appears: Non-toxic, No Acute Distress - Head Exam Head Exam: ATRAUMATIC, NORMAL INSPECTION, NORMOCEPHALIC - Eye Exam Eye Exam: EOMI, Normal appearance, PERRL - ENT Exam ENT Exam: Mucous Membranes Moist - Neck Exam Neck exam: Positive for: Normal Inspection. Negative for: Lymphadenopathy Additional comments: no bruits - Respiratory Exam Respiratory Exam: Clear to Auscultation Bilateral, NORMAL BREATHING PATTERN. absent: Accessory Muscle Use, Rales, Rhonchi, Wheezes, Respiratory Distress - Cardiovascular Exam Cardiovascular Exam: RRR, +S1, +S2, Systolic Murmur (grade 3 holosystolic ). absent: Bradycardia, Tachycardia, Gallop, JVD, Rubs - GI/Abdominal Exam GI & Abdominal Exam: Normal Bowel Sounds, Soft. absent: Distended, Tenderness - Extremities Exam Extremities exam: Positive for: normal capillary refill, normal inspection, pedal pulses present. Negative for: calf tenderness, pedal edema - Neurological Exam Neurological exam: Alert, Oriented x3 - Psychiatric Exam Psychiatric exam: Normal Affect, Normal Mood - Skin Skin Exam: Dry, Intact, Normal Color, Warm Results - Vital Signs Recent Vital Signs: Last Vital Signs Temp 98 F 10/18/17 13:08 Pulse 76 10/18/17 13:08 Resp 20 10/18/17 13:08 BP 132/79 10/18/17 13:08 Pulse Ox 100 10/18/17 15:38 - Labs Result Diagrams: 10/18/17 13:55 10/18/17 13:55 Labs: Laboratory Results - last 24 hr 10/18/17 10/18/17 10/18/17 13:55 13:55 15:29 WBC 7.5 RBC 4.37 Hgb 12.8 Hct 37.9 MCV 86.7 MCH 29.4 MCHC 33.9 RDW 14.3 Plt Count 227 MPV 9.1 Neut % (Auto) 59.0 Lymph % (Auto) 31.2 Gosper % (Auto) 7.0 Eos % (Auto) 2.4 Baso % (Auto) 0.4 Neut # (Auto) 4.4 Lymph # (Auto) 2.3 Gosper # (Auto) 0.5 Eos # (Auto) 0.2 Baso # (Auto) 0.0 D-Dimer, Quantitative < 200 Sodium 140 Potassium 4.4 Chloride 106 Carbon Dioxide 21 L Anion Gap 18 BUN 17 Creatinine 0.7 Est GFR ( Amer) > 60 Est GFR (Non-Af Amer) > 60 Random Glucose 81 Calcium 9.0 Total Bilirubin 0.9 AST 33 ALT 39 Alkaline Phosphatase 88 Troponin I 0.0590 NT-Pro-B Natriuret Pep 1040 H Total Protein 7.4 Albumin 4.2 Globulin 3.1 Albumin/Globulin Ratio 1.4 Assessment & Plan (1) Chest pain Assessment and Plan: * Atypical chest pain * Cardiology consulted, Dr. Hernandez; help appreciated * Trop: 0.0590, f/u trend * EKG: sinus rhythm with 1st degree AV block, LVH * f/u repeat * BNP: 1040 * Cardiac cath (October 2015) was normal with no signs of CAD * Echo (November 2016) showed EF 55%, grade II pseudonormal filling dynamics, increased LV filling pressure, and moderate aortic regurgitation * f/u repeat echo * f/u HbA1c * f/u thyroid studies Imaging: * CXR 10/18/17: questionable infiltrate/atelectasis in the right lower lobe * f/u CXR PA/LAT Meds: * Continue home ASA 81 mg PO daily and Vasotec 5 mg PO daily * Hold off on antibiotics as exam is unremarkable, will f/u PA/Lat CXR Status: Acute (2) Elevated brain natriuretic peptide (BNP) level Assessment and Plan: * BNP 1040 * no rales heard on exam * no peripheral edema * Echo (November 2016) showed EF 55%, grade II pseudonormal filling dynamics, increased LV filling pressure, and moderate aortic regurgitation * f/u repeat echo Status: Acute (3) History of pneumonia Assessment and Plan: * Afebrile, no leukocytosis, no cough * CXR 10/18/17: questionable infiltrate/atelectasis in the right lower lobe * f/u CXR PA/LAT * f/u procal * f/u Flu A&B Status: Acute (4) HTN (hypertension) Assessment and Plan: * 132/79 on admission * Continue home Vasotec 5 mg PO daily Status: Chronic (5) H/O gastritis Assessment and Plan: * Pepcid 20 mg PO BID started for GI prophylaxis Status: Acute (6) Hyperlipidemia Assessment and Plan: * f/u lipid panel Status: Chronic (7) Prophylactic measure Assessment and Plan: * GI: Pepcid 20 mg PO BID * DVT: Heparin 5000 units SC Q8H Status: Acute
[2017-10-18 20:02] LABS: CK-MB 1.1 ng/mL (0.0-3.38); TROPONIN I 0.063 ng/mL (0.00-0.120)
[2017-10-19 00:27] VITALS: RESP 20
[2017-10-19 00:47] LABS: SQUAMOUS EPITHIAL 10 /hpf (0-5); URINE BILIRUBIN NEGATIVE (NEGATIVE); URINE BLOOD NEGATIVE (NEGATIVE); URINE CLARITY Hazy (Clear); URINE COLOR Yellow (YELLOW); URINE GLUCOSE (UA) NORMAL (Normal); URINE LEUKOCYTE ESTERASE 2+ Leu/uL (Negative); URINE PROTEIN NEGATIVE (NEGATIVE); URINE UROBILINOGEN NORMAL mg/dL (0.2-1.0)
[2017-10-19 07:50] LABS: BLOOD UREA NITROGEN 16 mg/dL (7-17); GFR AFRICAN-AMERICAN > 60; GFR NON-AFRICAN AMERICAN > 60; HDL CHOLESTEROL 63 mg/dL (30-70)
[2017-10-19 08:05] LABS: LDL CHOLESTEROL 121 mg/dL (0-129)
[2017-10-19 08:13] LABS: CK-MB 0.95 ng/mL (0.0-3.38); TROPONIN I 0.06 ng/mL (0.00-0.120)
[2017-10-19 08:22] LABS: T4 7.01 ug/dL (5.5-11.0)
--- NOTE | 2017-10-19 08:46 | RAD ---
HISTORY: chest pain COMPARISON: Chest x-ray performed 10/18/17 TECHNIQUE: Chest PA and lateral FINDINGS: Examination limited by habitus and patient obliquity. LUNGS: Right hilar/infrahilar opacity new suspicious for pneumonia. Mild pulmonary venous congestion. Please note that chest x-ray has limited sensitivity for the detection of pulmonary masses. PLEURA: No significant pleural effusion identified. No definite pneumothorax . CARDIOVASCULAR: Cardiomegaly. Atherosclerotic calcifications of an ectatic aorta. OSSEOUS STRUCTURES: Curvature of the thoracolumbar spine convex to the right. VISUALIZED UPPER ABDOMEN: Unremarkable. OTHER FINDINGS: None. IMPRESSION: Right hilar/infrahilar opacities suspicious for pneumonia. This may be exaggerated by patient obliquity. Recommend follow-up to complete resolution. Mild pulmonary venous congestion. Cardiomegaly.
[2017-10-19] MEDS ORDERED: Pneumococcal 23-Valent Vaccine IM ONE (10:00)
--- NOTE | 2017-10-19 12:15 | CP.PCM.CON ---
History of Present Illness - History of Present Illness History of Present Illness: 62 year old female with a past medical history significant for childhood asthma and recently diagnosed hypertension who presented to for 5 days of worsening chest pain and concurrent dyspnea. Her symptoms are provoked by walking one block or when eating/swallowing food. She states the chest pain and dyspnea were prohibiting her to carrying out her daily functions as before. She denies experiencing any syncopal episodes, loss of consciousness, lightheadedness, weakness or nausea. She does report that the chest pain is pressure-like with radiation down the left arm, reproduced with activity, and remits with rest. Chart review indicates that she has a history of CAD. PMH: hypertension and childhood asthma PSH: Allergies: NKDA Medications: Enalapril 5 mg Family History: cannot recall at the time of the encounter Social: Works in [employer] industry ([employer]); denies alcohol, tobacco, or illicit drug use Review of Systems - Review of Systems All systems: reviewed and no additional remarkable complaints except Review of Systems: as per hpi Past Patient History - Infectious Disease Hx of Infectious Diseases: None - Past Medical History & Family History Past Medical History?: Yes - Past Social History Smoking Status: Never Smoked - CARDIAC Hx Hypertension: Yes - PULMONARY Hx Respiratory Disorders: Yes Hx Pneumonia: Yes (2016) - NEUROLOGICAL Hx Neurological Disorder: No - HEENT Hx HEENT Problems: No Hx Cataracts: (left eye..PT DENIES 09/26/17) - RENAL Hx Chronic Kidney Disease: No - ENDOCRINE/METABOLIC Hx Endocrine Disorders: No - HEMATOLOGICAL/ONCOLOGICAL Hx Blood Disorders: No - INTEGUMENTARY Hx Dermatological Problems: No - MUSCULOSKELETAL/RHEUMATOLOGICAL Hx Musculoskeletal Disorders: Yes Hx Back Pain: Yes Hx Falls: No - GASTROINTESTINAL Hx Gastrointestinal Disorders: Yes Hx Gastritis: Yes - GENITOURINARY/GYNECOLOGICAL Hx Genitourinary Disorders: No - PSYCHIATRIC Hx Psychophysiologic Disorder: No Hx Substance Use: No - SURGICAL HISTORY Hx Surgeries: Yes Other/Comment: cardiac cath 2017 - ANESTHESIA Hx Anesthesia: Yes Hx Anesthesia Reactions: No Meds Allergies/Adverse Reactions: Allergies Allergy/AdvReac Type Severity Reaction Status Date / Time No Known Allergies Allergy Verified 10/18/17 13:11 - Medications Medications: Current Medications Aspirin (Ecotrin) 81 mg PO DAILY [facility] Last Admin: 10/19/17 10:42 Dose: 81 mg Diltiazem HCl (Cardizem) 30 mg PO QID [facility] Famotidine (Pepcid) 20 mg PO BID [facility] Last Admin: 10/19/17 10:41 Dose: 20 mg Heparin Sodium (Porcine) (Heparin) 5,000 units SC Q8 [facility] Last Admin: 10/19/17 06:18 Dose: 5,000 units Ceftriaxone Sodium (Rocephin Iv 1 Gm Duplex) 50 mls @ 100 mls/hr IVPB DAILY [facility] PRN Reason: Protocol Doxycycline Hyclate 100 mg/ (Sodium Chloride) 100 mls @ 100 mls/hr IVPB Q12H [facility] PRN Reason: Protocol Metoprolol Tartrate (Lopressor) 12.5 mg PO BID [facility] Saccharomyces Boulardii (Florastor) 250 mg PO BID [facility] Physical Exam - Constitutional Appears: Non-toxic, No Acute Distress - Head Exam Head Exam: ATRAUMATIC, NORMOCEPHALIC - Eye Exam Eye Exam: EOMI, Normal appearance - ENT Exam ENT Exam: Mucous Membranes Moist, Normal Oropharynx - Neck Exam Neck exam: Positive for: Normal Inspection Additional comments: no JVD or carotid bruits - Respiratory Exam Respiratory Exam: Clear to Auscultation Bilateral, NORMAL BREATHING PATTERN - Cardiovascular Exam Cardiovascular Exam: absent: JVD Additional comments: Murmur of mitral regurgitation - GI/Abdominal Exam GI & Abdominal Exam: Normal Bowel Sounds, Soft - Extremities Exam Extremities exam: Positive for: normal inspection. Negative for: pedal edema - Back Exam Back exam: NORMAL INSPECTION - Neurological Exam Neurological exam: Alert, CN II-XII Intact, Oriented x3 - Psychiatric Exam Psychiatric exam: Normal Affect, Normal Mood - Skin Skin Exam: Dry, Intact, Normal Color, Warm Results - Vital Signs Recent Vital Signs: Last Vital Signs Temp 97.5 F L 10/19/17 07:00 Pulse 58 L 10/19/17 07:55 Resp 20 10/19/17 07:00 BP 106/68 10/19/17 10:38 Pulse Ox 98 10/19/17 07:00 - Labs Result Diagrams: 10/18/17 13:55 10/19/17 07:17 Labs: Laboratory Results - last 24 hr 10/18/17 10/18/17 10/18/17 13:55 13:55 15:29 WBC 7.5 RBC 4.37 Hgb 12.8 Hct 37.9 MCV 86.7 MCH 29.4 MCHC 33.9 RDW 14.3 Plt Count 227 MPV 9.1 Neut % (Auto) 59.0 Lymph % (Auto) 31.2 Kershaw % (Auto) 7.0 Eos % (Auto) 2.4 Baso % (Auto) 0.4 Neut # (Auto) 4.4 Lymph # (Auto) 2.3 Kershaw # (Auto) 0.5 Eos # (Auto) 0.2 Baso # (Auto) 0.0 D-Dimer, Quantitative < 200 Sodium 140 Potassium 4.4 Chloride 106 Carbon Dioxide 21 L Anion Gap 18 BUN 17 Creatinine 0.7 Est GFR ( Amer) > 60 Est GFR (Non-Af Amer) > 60 Random Glucose 81 Hemoglobin A1c Calcium 9.0 Total Bilirubin 0.9 AST 33 ALT 39 Alkaline Phosphatase 88 Total Creatine Kinase CK-MB (Mass) Troponin I 0.0590 NT-Pro-B Natriuret Pep 1040 H Total Protein 7.4 Albumin 4.2 Globulin 3.1 Albumin/Globulin Ratio 1.4 Triglycerides Cholesterol LDL Cholesterol Direct HDL Cholesterol Free T4 Thyroxine (T4) TSH 3rd Generation Urine Color Urine Clarity Urine pH Ur Specific Sanderson Urine Protein Urine Glucose (UA) Urine Ketones Urine Blood Urine Nitrate Urine Bilirubin Urine Urobilinogen Ur Leukocyte Esterase Urine WBC (Auto) Urine RBC (Auto) Ur Squamous Epith Cells Influenza Typ A,B (EIA) 10/18/17 10/19/17 10/19/17 19:31 00:24 04:00 WBC RBC Hgb Hct MCV MCH MCHC RDW Plt Count MPV Neut % (Auto) Lymph % (Auto) Kershaw % (Auto) Eos % (Auto) Baso % (Auto) Neut # (Auto) Lymph # (Auto) Kershaw # (Auto) Eos # (Auto) Baso # (Auto) D-Dimer, Quantitative Sodium Potassium Chloride Carbon Dioxide Anion Gap BUN Creatinine Est GFR ( Amer) Est GFR (Non-Af Amer) Random Glucose Hemoglobin A1c Calcium Total Bilirubin AST ALT Alkaline Phosphatase Total Creatine Kinase 84 CK-MB (Mass) 1.10 Troponin I 0.0630 NT-Pro-B Natriuret Pep Total Protein Albumin Globulin Albumin/Globulin Ratio Triglycerides Cholesterol LDL Cholesterol Direct HDL Cholesterol Free T4 Thyroxine (T4) TSH 3rd Generation Urine Color Yellow Urine Clarity Hazy Urine pH 5.0 Ur Specific Sanderson 1.019 Urine Protein Negative Urine Glucose (UA) Normal Urine Ketones Negative Urine Blood Negative Urine Nitrate Negative Urine Bilirubin Negative Urine Urobilinogen Normal Ur Leukocyte Esterase 2+ H Urine WBC (Auto) 91 H Urine RBC (Auto) 2 Ur Squamous Epith Cells 10 H Influenza Typ A,B (EIA) Negative for flu a/b 10/19/17 10/19/17 10/19/17 07:17 07:17 07:17 WBC RBC Hgb Hct MCV MCH MCHC RDW Plt Count MPV Neut % (Auto) Lymph % (Auto) Kershaw % (Auto) Eos % (Auto) Baso % (Auto) Neut # (Auto) Lymph # (Auto) Kershaw # (Auto) Eos # (Auto) Baso # (Auto) D-Dimer, Quantitative Sodium 139 Potassium 3.9 Chloride 105 Carbon Dioxide 24 Anion Gap 15 BUN 16 Creatinine 0.7 Est GFR ( Amer) > 60 Est GFR (Non-Af Amer) > 60 Random Glucose 86 Hemoglobin A1c 5.3 Calcium 9.0 Total Bilirubin AST ALT Alkaline Phosphatase Total Creatine Kinase CK-MB (Mass) Troponin I NT-Pro-B Natriuret Pep Total Protein Albumin Globulin Albumin/Globulin Ratio Triglycerides 125 D Cholesterol 216 H LDL Cholesterol Direct 121 HDL Cholesterol 63 Free T4 0.78 Thyroxine (T4) 7.01 TSH 3rd Generation 1.18 Urine Color Urine Clarity Urine pH Ur Specific Sanderson Urine Protein Urine Glucose (UA) Urine Ketones Urine Blood Urine Nitrate Urine Bilirubin Urine Urobilinogen Ur Leukocyte Esterase Urine WBC (Auto) Urine RBC (Auto) Ur Squamous Epith Cells Influenza Typ A,B (EIA) 10/19/17 07:17 WBC RBC Hgb Hct MCV MCH MCHC RDW Plt Count MPV Neut % (Auto) Lymph % (Auto) Kershaw % (Auto) Eos % (Auto) Baso % (Auto) Neut # (Auto) Lymph # (Auto) Kershaw # (Auto) Eos # (Auto) Baso # (Auto) D-Dimer, Quantitative Sodium Potassium Chloride Carbon Dioxide Anion Gap BUN Creatinine Est GFR ( Amer) Est GFR (Non-Af Amer) Random Glucose Hemoglobin A1c Calcium Total Bilirubin AST ALT Alkaline Phosphatase Total Creatine Kinase 73 CK-MB (Mass) 0.95 Troponin I 0.0600 NT-Pro-B Natriuret Pep Total Protein Albumin Globulin Albumin/Globulin Ratio Triglycerides Cholesterol LDL Cholesterol Direct HDL Cholesterol Free T4 Thyroxine (T4) TSH 3rd Generation Urine Color Urine Clarity Urine pH Ur Specific Sanderson Urine Protein Urine Glucose (UA) Urine Ketones Urine Blood Urine Nitrate Urine Bilirubin Urine Urobilinogen Ur Leukocyte Esterase Urine WBC (Auto) Urine RBC (Auto) Ur Squamous Epith Cells Influenza Typ A,B (EIA) Assessment & Plan - Assessment and Plan (Free Text) Assessment: 62 year old female with 5 days of chest pain and dyspnea on exertion who was found to have EKG changes consistent with LVH with strain, LBB, and 1st degree AV block. Cardiology was consulted and preliminary interpretation of Transthoracic Echocardiogram shows assymetric hypertrophy of the ventricular septum with clinically significant LVOT and findings consistent with Hypertrophic Obstructive Cardiomyopathy. Plan: - Recommend Dilitiazem 30 mg QID and Metoprolol 12.5 mg BID - Monitor vitals closely overnight. - Potential echocardiogram 1 week from 10/19/17 - Further recommendations per Dr. Smith - Case was discussed with primary medical doctor, Dr. Gaudencio Caballero. Case reviewed and discussed with attending physician, Dr. Smith. - Date & Time Date: 10/19/17 Time: 11:00
--- NOTE | 2017-10-19 12:50 | CP.PCM.PN ---
<Milton Quiroz - Last Filed: 10/19/17 14:59> Subjective - Date & Time of Evaluation Date of Evaluation: 10/19/17 Time of Evaluation: 08:00 - Subjective Subjective: PGY1 Medicine Note for Dr. Gaudencio Caballero Patient seen and examined at bedside this morning. Patient states that she is still feeling a pressure-like pain in her chest with radiation down her left arm. This pain is reproducible with activity and is improved with rest. She has no other complaints at this time. Denies fevers, chills, nausea, vomiting, diarrhea, abdominal pain, constipation, blurry vision, double vision or headaches. Objective - Vital Signs/Intake and Output Vital Signs (last 24 hours): Temp Pulse Resp BP Pulse Ox 97.5 F L 58 L 20 106/68 98 10/19/17 07:00 10/19/17 07:55 10/19/17 07:00 10/19/17 10:38 10/19/17 07:00 - Medications Medications: Current Medications Aspirin (Ecotrin) 81 mg PO DAILY [facility] Last Admin: 10/19/17 10:42 Dose: 81 mg Diltiazem HCl (Cardizem) 30 mg PO QID [facility] Famotidine (Pepcid) 20 mg PO BID [facility] Last Admin: 10/19/17 10:41 Dose: 20 mg Heparin Sodium (Porcine) (Heparin) 5,000 units SC Q8 [facility] Last Admin: 10/19/17 06:18 Dose: 5,000 units Ceftriaxone Sodium 1 gm/ (Sodium Chloride) 100 mls @ 100 mls/hr IVPB DAILY [facility] PRN Reason: Protocol Doxycycline Hyclate 100 mg/ (Sodium Chloride) 100 mls @ 100 mls/hr IVPB Q12H [facility] PRN Reason: Protocol Metoprolol Tartrate (Lopressor) 12.5 mg PO BID [facility] Saccharomyces Boulardii (Florastor) 250 mg PO BID [facility] - Labs Labs: 10/18/17 13:55 10/19/17 07:17 - Constitutional Appears: Non-toxic, No Acute Distress - Head Exam Head Exam: ATRAUMATIC, NORMOCEPHALIC - Eye Exam Eye Exam: EOMI, PERRL - ENT Exam ENT Exam: Mucous Membranes Moist - Neck Exam Additional comments: no carotid bruit b/l - Respiratory Exam Respiratory Exam: Clear to Ausculation Bilateral, NORMAL BREATHING PATTERN. absent: Accessory Muscle Use, Rales, Rhonchi, Wheezes, Respiratory Distress - Cardiovascular Exam Cardiovascular Exam: REGULAR RHYTHM, +S1, +S2, Murmur (holosystolic) - GI/Abdominal Exam GI & Abdominal Exam: Soft, Normal Bowel Sounds. absent: Distended, Firm, Guarding, Rigid, Tenderness - Extremities Exam Extremities Exam: absent: Calf Tenderness, Pedal Edema - Neurological Exam Neurological Exam: Alert, Awake, Oriented x3 - Psychiatric Exam Psychiatric exam: Normal Affect, Normal Mood - Skin Skin Exam: Dry, Warm Assessment and Plan - Assessment and Plan (Free Text) Plan: Chest pain * Atypical chest pain * Cardiology consulted, Dr. Smith; help appreciated * Trop: 0.0590, 0.0630, 0.0600 * EKG: sinus rhythm with 1st degree AV block, LBBB, LVH with strain * BNP: 1040 * Cardiac cath (October 2015) was normal with no signs of CAD * Echo (November 2016) showed EF 55%, grade II pseudonormal filling dynamics, increased LV filling pressure, and moderate aortic regurgitation * repeat echo 10/19/17- f/u awaiting report * HbA1c 5.3 * TSH 1.18/free T4 0.78 * Dr. Smith, recs * preliminary interpretation of SHERRY - Assymetric hypertrophy of the ventricular septum with clinically significant LVOT and findings consistent with Hypertrophic Obstructive Cardiomyopathy. * Started on Metoprolol Tart 12.5 mg BID * Started on Dilitiazem 30 mg QID Imaging: * CXR 10/18/17: questionable infiltrate/atelectasis in the right lower lobe * CXR PA/LAT 10/19/17: Right hilar/infrahilar opacities suspicious for pneumonia. This may be exaggerated by patient obliquity. Recommend follow-up to complete resolution. Mild pulmonary venous congestion. Cardiomegaly. Meds: * Continue home ASA 81 mg PO daily and Vasotec 5 mg PO daily * Started Rocephin 1gm IVPB daily (started on 10/19) * Started Doxycycline 100mg IVPB q12h (started on 10/19) Elevated brain natriuretic peptide (BNP) level * BNP 1040 * no rales heard on exam * no peripheral edema * Echo (November 2016) showed EF 55%, grade II pseudonormal filling dynamics, increased LV filling pressure, and moderate aortic regurgitation * repeat echo - awaiting official report History of pneumonia * Afebrile, no leukocytosis, no cough * CXR 10/18/17: questionable infiltrate/atelectasis in the right lower lobe * CXR PA/LAT 10/19/17:Right hilar/infrahilar opacities suspicious for pneumonia. This may be exaggerated by patient obliquity. Recommend follow-up to complete resolution. Mild pulmonary venous congestion. Cardiomegaly. * f/u procal * Flu A&B - neg HTN (hypertension) * 132/79 on admission * Continue home Vasotec 5 mg PO daily H/O gastritis * Pepcid 20 mg PO BID started for GI prophylaxis Hyperlipidemia * HDL 63 * LDL 121 * Trigly 125 Prophylactic measure * GI: Pepcid 20 mg PO BID * DVT: Heparin 5000 units SC Q8H Case discussed with Dr. Gaudencio Quiroz PGY1 <Gaudencio Caballero - Last Filed: 10/19/17 18:11> Objective - Vital Signs/Intake and Output Vital Signs (last 24 hours): Temp Pulse Resp BP Pulse Ox 98.3 F 62 20 99/62 L 98 10/19/17 16:21 10/19/17 17:29 10/19/17 16:21 10/19/17 17:29 10/19/17 17:29 Intake and Output: 10/19/17 10/19/17 06:59 18:59 Intake Total 200 Output Total 2 Balance 198 - Medications Medications: Current Medications Aspirin (Ecotrin) 81 mg PO DAILY [facility] Last Admin: 10/19/17 10:42 Dose: 81 mg Diltiazem HCl (Cardizem) 30 mg PO QID [facility] Last Admin: 10/19/17 14:55 Dose: 30 mg Famotidine (Pepcid) 20 mg PO BID [facility] Last Admin: 10/19/17 10:41 Dose: 20 mg Heparin Sodium (Porcine) (Heparin) 5,000 units SC Q8 [facility] Last Admin: 10/19/17 14:55 Dose: 5,000 units Ceftriaxone Sodium 1 gm/ (Sodium Chloride) 100 mls @ 100 mls/hr IVPB DAILY [facility] PRN Reason: Protocol Last Admin: 10/19/17 15:16 Dose: 100 mls/hr Doxycycline Hyclate 100 mg/ (Sodium Chloride) 100 mls @ 100 mls/hr IVPB Q12H [facility] PRN Reason: Protocol Last Admin: 10/19/17 14:15 Dose: 100 mls/hr Metoprolol Tartrate (Lopressor) 12.5 mg PO BID [facility] Saccharomyces Wilbert (Florastor) 250 mg PO BID [facility] - Labs Labs: 10/18/17 13:55 10/19/17 07:17 Attending/Attestation - Attestation I have personally seen and examined this patient.: Yes I have fully participated in the care of the patient.: Yes I have reviewed all pertinent clinical information, including history, physical exam and plan: Yes Notes (Text): 10/19/17 18:00 Patient was seen and examined at 12:00 PM 10/19/17. [facility] helped to translate Algerian Exam, assessment and plan were gone over with the resident. Also on ROS: NO longer with chest pain and radiation of this pain to the left neck/jaw/arm have resolved NO other complaints Assessments: 1). Atypical Chest Pain Troponins are negative x 3 2). Hypertrophic Cardiomyopathy As per Dr. Smith's read of Echocardiogram Added Cardizem 30 mg PO Q6H and Metoprolol Tartrate 12.5 mg PO 2x/day We will see how patient feels tomorrow 10/20/17 afternoon after walk and if no reproduction of pain, then will discharge as per instructions from Cardiology She will need repeat Echocardiogram in 1 week through [facility] She will need referral to see Route Returner Dr. Smith in his office from [facility] for review of this Echocardiogram and based upon results Dr. Smith to perform Cardiac Catheterization to determine if patient has Septal Artery. If Septal Artery is present then this will need ablation. If NO Septal Artery is present then patient will need Septoplasty. Dr. Smith will arrange through his contact at [facility]. He is aware that patient is uninsured but will follow her. 3). Hx HTN Discontinued the HELEN I and started Cardizem and Metoprolol as above 4). Hx HLD Total Cholesterol 216 LDL 121 Triglycerides 125 HDL 63 HOLD Off on Statin for now 5). Hx Gastritis Pepcid 20 mg PO 2x/day 6). Right Infrahilar Possible Infiltrate As noted on Chest X Ray PA and Lateral Started Rocephin 1 gm IV Q24H and Doxcycline 100 mg IV Q12H (NO Azithromycin as QTc close to upper limit of normal) NO WBC NO Rales/Rhonchi heard on exam NO fevers IF there continues to be no issues on vitals and CBC then we will discontinue treatment F/U Urine Legionella, Urine S. pneumoniae, Mycoplasma IgG and IgM F/U Blood Culture 7). Prophylaxis Pepcid 20 mg PO 2x/day Heparin 5,000 Units SC Q8H [facility] 250 mg PO BID Gaudencio Caballero D.O.
[2017-10-19] MEDS: Saccharomyces Boulardi 250 mg Cap PO SCH (18:21)
[2017-10-20 06:16] LABS: BASO % 0.3 % (0.0-2.0); EOS # 0.2 K/uL (0.0-0.7); EOS % 3.8 % (0.0-4.0); HEMOGLOBIN 12.3 g/dL (11.0-16.0); LYMPH # 2.7 K/uL (1.0-4.3); LYMPH % 44.8 % (20.0-40.0); MEAN CORPUSCULAR HEMOGLOBIN 29.3 pg (27.0-31.0); MEAN CORPUSCULAR HGB CONC 34.1 g/dL (33.0-37.0); MEAN PLATELET VOLUME 8.8 fL (7.2-11.7); MONO # 0.5 K/uL (0.0-0.8); NEUT # 2.5 K/uL (1.8-7.0); NEUT % 42.1 % (50.0-75.0); NRBC % 0.1 % (0.0-2.0); RBC 4.2 Mil/uL (3.80-5.20); RED CELL DISTRIBUTION WIDTH 14.3 % (11.5-14.5); WHITE BLOOD COUNT 5.9 K/uL (4.8-10.8)
--- NOTE | 2017-10-20 07:45 | CP.PCM.PN ---
Subjective - Date & Time of Evaluation Date of Evaluation: 10/20/17 Time of Evaluation: 07:40 - Subjective Subjective: Cardiology Progress note for Dr. Smith Patient seen and examined at bedside. Patient reports having resolution of chest pain, dyspnea, and palpitations. She denies feeling any weakness, lightheadedness, or blurry vision. She is able to walk around the hospital floor without feeling chest pain and dyspnea. Nurse reports no events overnight. Objective - Vital Signs/Intake and Output Vital Signs (last 24 hours): Temp Pulse Resp BP Pulse Ox 97.5 F L 62 20 122/72 97 10/20/17 04:20 10/20/17 04:20 10/20/17 04:20 10/20/17 04:20 10/20/17 04:20 Intake and Output: 10/20/17 10/20/17 06:59 18:59 Intake Total 310 Balance 310 - Medications Medications: Current Medications Aspirin (Ecotrin) 81 mg PO DAILY [facility] Last Admin: 10/19/17 10:42 Dose: 81 mg Diltiazem HCl (Cardizem) 30 mg PO QID [facility] Last Admin: 10/19/17 21:52 Dose: 30 mg Famotidine (Pepcid) 20 mg PO BID [facility] Last Admin: 10/19/17 18:21 Dose: 20 mg Heparin Sodium (Porcine) (Heparin) 5,000 units SC Q8 [facility] Last Admin: 10/20/17 05:26 Dose: 5,000 units Ceftriaxone Sodium 1 gm/ (Sodium Chloride) 100 mls @ 100 mls/hr IVPB DAILY [facility] PRN Reason: Protocol Last Admin: 10/19/17 15:16 Dose: 100 mls/hr Doxycycline Hyclate 100 mg/ (Sodium Chloride) 100 mls @ 100 mls/hr IVPB Q12H [facility] PRN Reason: Protocol Last Admin: 10/20/17 00:30 Dose: 100 mls/hr Metoprolol Tartrate (Lopressor) 12.5 mg PO BID [facility] Last Admin: 10/19/17 18:21 Dose: Not Given Saccharomyces Boulardii (Florastor) 250 mg PO BID [facility] Last Admin: 10/19/17 18:21 Dose: 250 mg - Labs Labs: 10/20/17 06:06 10/19/17 07:17 - Constitutional Appears: Well, Non-toxic - Head Exam Head Exam: ATRAUMATIC, NORMOCEPHALIC - Eye Exam Eye Exam: EOMI, Normal appearance - ENT Exam ENT Exam: Mucous Membranes Moist, Normal Oropharynx - Neck Exam Neck Exam: Normal Inspection - Respiratory Exam Respiratory Exam: Clear to Ausculation Bilateral, NORMAL BREATHING PATTERN - Cardiovascular Exam Cardiovascular Exam: RRR Additional comments: apical precordial impulse is displaced laterally; holosystolic murmur auscultated in lower left sternal border - GI/Abdominal Exam GI & Abdominal Exam: Soft. absent: Guarding, Rebound - Extremities Exam Extremities Exam: Normal Capillary Refill, Normal Inspection. absent: Calf Tenderness - Back Exam Back Exam: NORMAL INSPECTION - Neurological Exam Neurological Exam: Alert, Awake, CN II-XII Intact, Normal Gait, Oriented x3 - Psychiatric Exam Psychiatric exam: Normal Affect, Normal Mood - Skin Skin Exam: Dry, Intact, Normal Color, Warm Assessment and Plan - Assessment and Plan (Free Text) Assessment: 62 year old female with 5 days of chest pain and dyspnea on exertion who was found to have EKG changes consistent with LVH with strain, LBB, and 1st degree AV block. Cardiology was consulted and preliminary interpretation of Transthoracic Echocardiogram shows assymetric hypertrophy of the ventricular septum with clinically significant LVOT and findings consistent with Hypertrophic Obstructive Cardiomyopathy. Plan: Hypertrophic Cardiomyopathy: - Dilitiazem 30 mg QID and Metoprolol 12.5 mg BID. - Patient should abstain from competitive sports or strenuous aerobic activities ; should be counselled on the need to avoid dehydration and avoid taking hot baths or using a saunas. - Echocardiogram to be performed in 1 week from 10/19/17 to assess for reduction of Left Ventricular outflow tract obstruction gradient/flow velocity with current medical management. - Follow up visit with Dr. Smith and arrangement should be made for a cardiac cathetherization to assess for a septal artery. Case reviewed and discussed with attending physician, Dr. Smith.
--- NOTE | 2017-10-20 09:15 | CARD ---
APPROVED REPORT EXAM: Two-dimensional and M-mode echocardiogram with Doppler and color Doppler. 2D DIMENSIONS IVSd1.1 (0.7-1.1cm)LVDd5.1 (3.9-5.9cm) PWd0.9 (0.7-1.1cm)LVDs2.3 (2.5-4.0cm) FS (%) 56.2 %LVEF (%)86.4 (>50%) M-Mode DIMENSIONS RVDd1.04 (2.1-3.2cm)Left Atrium (MM)4.85 (2.5-4.0cm) IVSd1.66 (0.7-1.1cm)Aortic Root2.52 (2.2-3.7cm) LVDd5.08 (4.0-5.6cm)Aortic Cusp Exc.2.03 (1.5-2.0cm) PWd0.98 (0.7-1.1cm)FS (%) 54 % LVDs2.34 (2.0-3.8cm)LVEF (%)85 (>50%) Mitral Valve MV E Ojnvgfoe660.4cm/sMV A Lvisbxqc89.8cm/sE/A ratio1.7 TDI E/Lateral E'0.0E/Medial E'0.0 Tricuspid Valve TR Peak Firktvro882dj/sTR Peak Gr.97otImTGOD62yeIs LEFT VENTRICLE The left ventricle is normal size. There is normal left ventricular wall thickness. Left ventricle systolic function is normal. The Ejection Fraction is >70%. There is normal LV segmental wall motion. The left ventricular diastolic function is normal. No left ventricle thrombus noted on this study. RIGHT VENTRICLE The right ventricle is normal size. There is normal right ventricular wall thickness. The right ventricular systolic function is normal. ATRIA The left atrium size is normal. The right atrium size is normal. The interatrial septum is intact with no evidence for an atrial septal defect. AORTIC VALVE The aortic valve is normal in structure. No aortic regurgitation is present. There is no aortic valvular stenosis. There is no aortic valvular vegetation. MITRAL VALVE The mitral valve is normal in structure. There is no evidence of mitral valve prolapse. There is no mitral valve stenosis. Mitral regurgitation is mild to moderate. TRICUSPID VALVE The tricuspid valve is normal in structure. There is mild tricuspid regurgitation. Right ventricular systolic pressure is estimated at 30-40 mmHg. There is mild pulmonary hypertension. PULMONIC VALVE The pulmonic valve is not well visualized. There is trace to mild pulmonic valvular regurgitation. GREAT VESSELS The aortic root is normal in size. PERICARDIAL EFFUSION There is no significant pericardial effusion. <Conclusion> Left ventricle systolic function is normal. The Ejection Fraction is >70%. No aortic regurgitation is present. Mitral regurgitation is mild to moderate. There is mild tricuspid regurgitation. There is mild pulmonary hypertension. There is trace to mild pulmonic valvular regurgitation.
[2017-10-20 09:46] VITALS: TEMP 98; O2SAT 95
[2017-10-20] MEDS ORDERED: Influenza Vaccine 60 mcg/0.5 mL SYR (4YR UP) IM ONE (10:00)
[2017-10-20] MEDS: Saccharomyces Boulardi 250 mg Cap PO SCH (10:19)
--- NOTE | 2017-10-20 12:48 | CP.PCM.PN ---
Subjective - Date & Time of Evaluation Date of Evaluation: 10/20/17 Time of Evaluation: 09:45 - Subjective Subjective: Hospitalist Progress Note Patient was seen and examined at 9:45 AM 10/20/17 665 A. No longer experiencing chest pain with radiation to the left neck/arm. SOB is improved. NO cough/wheezing. NO abdominal pain. NO n/v/d/c. NO burning/pain with urination. NO other issues Exam: General: AAOX3, NAD HEENT: NCA, EOMI, PERRLA, NO cervical/supraclavicular/submandibular lymphadenopathy, NO pharyngeal erythema/exudate, Nasal Turbinates are nonerythematous/nonedematous, Oral Mucosa is moist Cardio: NS1 and NS2, Holosystolic Murmur Resp: CTA B/L, NO R/R/W GI: BSx4, Soft, NT, Liver and Spleen were NOT enlarged, NO guarding/rebound tenderness Ext: Pulses are strong and equal, Capillary Refill is 2 seconds, NO edema Neuro: CN II through XII are grossly intact Assessments: 1). Atypical Chest Pain Troponins are negative x 3 2). Hypertrophic Cardiomyopathy As per Dr. Smith's read of Echocardiogram Added Cardizem 30 mg PO Q6H and Metoprolol Tartrate 12.5 mg PO 2x/day on 10/19/17 Performed 5 minute walk with patient 10/20/17 and stated that she had some mild discomfort in the left chest but NO radiation of pain. She will need repeat Echocardiogram in 1 week through [facility] She will need referral to see Line [employer] Cook Dr. Smith in his office from [facility] for review of this Echocardiogram and based upon results Dr. Smith to perform Cardiac Catheterization to determine if patient has Septal Artery. If Septal Artery is present then this will need ablation. If NO Septal Artery is present then patient will need Septoplasty. Dr. Smith will arrange through his contact at [facility]. He is aware that patient is uninsured but will follow her. This was all explained to patient with Sheeting Puller on 10/19/17 3). Hx HTN Discontinued the HELEN I and started Cardizem and Metoprolol as above 4). Hx HLD Total Cholesterol 216 LDL 121 Triglycerides 125 HDL 63 HOLD Off on Statin for now 5). Hx Gastritis Pepcid 20 mg PO 2x/day 6). Right Infrahilar Possible Infiltrate As noted on Chest X Ray PA and Lateral Started Rocephin 1 gm IV Q24H and Doxcycline 100 mg IV Q12H (NO Azithromycin as QTc close to upper limit of normal) on 10/19/17 NO WBC NO Rales/Rhonchi heard on exam NO fevers I believe that this may be an over reading on the Chest X Ray and NOT a true Pneumonia therefore NO more antibiotics at this time 7). Prophylaxis Pepcid 20 mg PO 2x/day Heparin 5,000 Units SC Q8H Florastor 250 mg PO BID I spoke with Dr. Smith and patient asymptomatic at the time of his walk with her after my exam. He has cleared for discharge. The following instructions were explained to the patient and copy will need to be provided to her in [place] upon discharge: 1). Schedule appointment with the [facility] at [facility] by calling [phone]. This appointment should take place by early next week. 2). Through the [facility], have Echocardiogram performed again in the next 7 days. 3). Schedule an appointment with Line Prep Cook Dr. Smith by calling his office at [phone]. This appointment should take place in the next 7 days. 4). Do NOT perform any strenuous activities and do NOT take any hot bathes or use a suana. Your heart is enlarged and it is dangerous for you to perform any strenuous activities. 5). Please make sure to have the following prescriptions filled at your pharmacy and use as directed: Aspirin 81 mg, 1 tablet by mouth 1x/day (9 AM), Dispense #30, NO refills Cardizem 30 mg, 1 tablet by mouth 4x/day (9 AM, 1 PM, 5 PM, 9 PM), Dispense #120 , NO refills Metoprolol Tartrate 12.5 mg, 1 tablet by mouth 2x/day (9 AM and 9 PM), Dispense #60, NO refills 6). Please take care and be well. Gaudencio Caballero D.O. Objective - Vital Signs/Intake and Output Vital Signs (last 24 hours): Temp Pulse Resp BP Pulse Ox 98.0 F 67 20 106/65 95 10/20/17 09:45 10/20/17 09:45 10/20/17 09:45 10/20/17 09:45 10/20/17 09:45 Intake and Output: 10/20/17 10/20/17 06:59 18:59 Intake Total 310 Balance 310 - Medications Medications: Current Medications Aspirin (Ecotrin) 81 mg PO DAILY [facility] Last Admin: 10/20/17 10:13 Dose: 81 mg Diltiazem HCl (Cardizem) 30 mg PO QID [facility] Last Admin: 10/20/17 10:16 Dose: 30 mg Famotidine (Pepcid) 20 mg PO BID [facility] Last Admin: 10/20/17 10:16 Dose: 20 mg Heparin Sodium (Porcine) (Heparin) 5,000 units SC Q8 [facility] Last Admin: 10/20/17 05:26 Dose: 5,000 units Ceftriaxone Sodium 1 gm/ (Sodium Chloride) 100 mls @ 100 mls/hr IVPB DAILY [facility] PRN Reason: Protocol Last Admin: 10/20/17 10:27 Dose: 100 mls/hr Doxycycline Hyclate 100 mg/ (Sodium Chloride) 100 mls @ 100 mls/hr IVPB Q12H [facility] PRN Reason: Protocol Last Admin: 10/20/17 00:30 Dose: 100 mls/hr Metoprolol Tartrate (Lopressor) 12.5 mg PO BID [facility] Last Admin: 10/20/17 10:16 Dose: 12.5 mg Saccharomyces Boulardii (Florastor) 250 mg PO BID [facility] Last Admin: 10/20/17 10:19 Dose: 250 mg - Labs Labs: 10/20/17 06:06 10/19/17 07:17
[2017-10-20 13:28] VITALS: BP 125/73; PULSE 63
[2017-10-20 14:21] LABS: SQUAMOUS EPITHIAL 1 /hpf (0-5); URINE BACTERIA RARE (<OCC); URINE BILIRUBIN NEGATIVE (NEGATIVE); URINE BLOOD NEGATIVE (NEGATIVE); URINE CLARITY Clear (Clear); URINE COLOR Straw (YELLOW); URINE GLUCOSE (UA) NORMAL (Normal); URINE LEUKOCYTE ESTERASE NEG Leu/uL (Negative); URINE PROTEIN NEGATIVE (NEGATIVE); URINE UROBILINOGEN NORMAL mg/dL (0.2-1.0)
[2017-10-20 15:11] LABS: BLOOD UREA NITROGEN 14 mg/dL (7-17); GFR AFRICAN-AMERICAN > 60; GFR NON-AFRICAN AMERICAN > 60
--- NOTE | 2017-10-20 15:17 | CARD ---
APPROVED REPORT EKG Measurement Heart [id number] <Conclusion> Sinus bradycardia with 1st degree AV block Left ventricular hypertrophy with repolarization abnormality Abnormal ECG
--- NOTE | 2017-10-20 21:11 | CP.PCM.DIS ---
Provider - Provider Date of Admission: 10/19/17 12:05 Attending physician: Gaudencio Caballero MD Time Spent in preparation of Discharge (in minutes): 30 Hospital Course - Lab Results Lab Results: Micro Results 10/19/17 Unknown Blood-Venous Blood Culture - Preliminary NO GROWTH AFTER 24 HOURS 10/19/17 13:30 Blood-Venous Blood Culture - Preliminary NO GROWTH AFTER 24 HOURS 10/18/17 21:00 Urine Urine Culture - Final 50-100,000 CFU/ML. MULTIPLE SPECIES. SUGGEST REPEAT SPECIMEN. Most Recent Lab Values WBC 5.9 K/uL (4.8-10.8) 10/20/17 06:06 RBC 4.20 Mil/uL (3.80-5.20) 10/20/17 06:06 Hgb 12.3 g/dL (11.0-16.0) 10/20/17 06:06 Hct 36.1 % (34.0-47.0) 10/20/17 06:06 MCV 86.0 fL (81.0-99.0) 10/20/17 06:06 MCH 29.3 pg (27.0-31.0) 10/20/17 06:06 MCHC 34.1 g/dL (33.0-37.0) 10/20/17 06:06 RDW 14.3 % (11.5-14.5) 10/20/17 06:06 Plt Count 211 K/uL (130-400) 10/20/17 06:06 MPV 8.8 fL (7.2-11.7) 10/20/17 06:06 Neut % (Auto) 42.1 % (50.0-75.0) L 10/20/17 06:06 Lymph % (Auto) 44.8 % (20.0-40.0) H 10/20/17 06:06 Schuyler % (Auto) 9.0 % (0.0-10.0) 10/20/17 06:06 Eos % (Auto) 3.8 % (0.0-4.0) 10/20/17 06:06 Baso % (Auto) 0.3 % (0.0-2.0) 10/20/17 06:06 Neut # (Auto) 2.5 K/uL (1.8-7.0) 10/20/17 06:06 Lymph # (Auto) 2.7 K/uL (1.0-4.3) 10/20/17 06:06 Schuyler # (Auto) 0.5 K/uL (0.0-0.8) 10/20/17 06:06 Eos # (Auto) 0.2 K/uL (0.0-0.7) 10/20/17 06:06 Baso # (Auto) 0.0 K/uL (0.0-0.2) 10/20/17 06:06 D-Dimer, Quantitative < 200 ng/mlDDU (0-243) 10/18/17 15:29 Sodium 140 mmol/L (132-148) 10/20/17 14:09 Potassium 4.2 mmol/L (3.6-5.2) 10/20/17 14:09 Chloride 103 mmol/L (98-107) 10/20/17 14:09 Carbon Dioxide 23 mmol/L (22-30) 10/20/17 14:09 Anion Gap 18 (10-20) 10/20/17 14:09 BUN 14 mg/dL (7-17) 10/20/17 14:09 Creatinine 0.8 mg/dL (0.7-1.2) 10/20/17 14:09 Est GFR ( Amer) > 60 10/20/17 14:09 Est GFR (Non-Af Amer) > 60 10/20/17 14:09 Random Glucose 95 mg/dL (65-105) 10/20/17 14:09 Hemoglobin A1c 5.3 % (4.2-6.5) 10/19/17 07:17 Calcium 9.0 mg/dl (8.6-10.4) 10/20/17 14:09 Total Bilirubin 0.9 mg/dL (0.2-1.3) 10/18/17 13:55 AST 33 U/L (14-36) 10/18/17 13:55 ALT 39 U/L (9-52) 10/18/17 13:55 Alkaline Phosphatase 88 U/L (38-126) 10/18/17 13:55 Total Creatine Kinase 73 U/L (30-135) 10/19/17 07:17 CK-MB (Mass) 0.95 ng/mL (0.0-3.38) 10/19/17 07:17 Troponin I 0.0600 ng/mL (0.00-0.120) 10/19/17 07:17 NT-Pro-B Natriuret Pep 1040 pg/mL (0-900) H 10/18/17 13:55 Total Protein 7.4 g/dL (6.3-8.3) 10/18/17 13:55 Albumin 4.2 g/dL (3.5-5.0) 10/18/17 13:55 Globulin 3.1 gm/dL (2.2-3.9) 10/18/17 13:55 Albumin/Globulin Ratio 1.4 (1.0-2.1) 10/18/17 13:55 Triglycerides 125 mg/dL (0-149) D 10/19/17 07:17 Cholesterol 216 mg/dL (0-199) H 10/19/17 07:17 LDL Cholesterol Direct 121 mg/dL (0-129) 10/19/17 07:17 HDL Cholesterol 63 mg/dL (30-70) 10/19/17 07:17 Free T4 0.78 ng/dL (0.78-2.19) 10/19/17 07:17 Thyroxine (T4) 7.01 ug/dL (5.5-11.0) 10/19/17 07:17 TSH 3rd Generation 1.18 mIU/L (0.46-4.68) 10/19/17 07:17 Urine Color Straw (YELLOW) 10/20/17 14:09 Urine Clarity Clear (Clear) 10/20/17 14:09 Urine pH 5.0 (5.0-8.0) 10/20/17 14:09 Ur Specific [place] 1.009 (1.003-1.030) 10/20/17 14:09 Urine Protein Negative mg/dL (NEGATIVE) 10/20/17 14:09 Urine Glucose (UA) Normal mg/dL (Normal) 10/20/17 14:09 Urine Ketones Negative mg/dL (NEGATIVE) 10/20/17 14:09 Urine Blood Negative (NEGATIVE) 10/20/17 14:09 Urine Nitrate Negative (NEGATIVE) 10/20/17 14:09 Urine Bilirubin Negative (NEGATIVE) 10/20/17 14:09 Urine Urobilinogen Normal mg/dL (0.2-1.0) 10/20/17 14:09 Ur Leukocyte Esterase Neg Melanie/uL (Negative) 10/20/17 14:09 Urine WBC (Auto) 3 /hpf (0-5) 10/20/17 14:09 Urine RBC (Auto) < 1 /hpf (0-3) 10/20/17 14:09 Ur Squamous Epith Cells 1 /hpf (0-5) 10/20/17 14:09 Urine Bacteria Rare (<OCC) 10/20/17 14:09 Influenza Typ A,B (EIA) Negative for flu a/b (NEGATIVE) 10/19/17 04:00 Discharge Exam - Head Exam Head Exam: ATRAUMATIC, NORMOCEPHALIC Discharge Plan - Discharge Medications Prescriptions: Aspirin [Ecotrin] 81 mg PO DAILY #30 tabec diltiaZEM [Cardizem] 30 mg PO QID #120 tab Metoprolol Tartrate [Lopressor] 12.5 mg PO BID #60 tab - Follow Up Plan Condition: FAIR Disposition: HOME/ ROUTINE Instructions: Heart Healthy Diet, Chest Pain (DC), Aspirin, Diltiazem, Metoprolol Additional Instructions: 1). Schedule appointment with the [facility] by calling [phone]. This appointment should take place by early next week. 2). Through the [facility], have Echocardiogram performed again in the next 7 days. 3). Schedule an appointment with [employer] Dr. Smith by calling his office at [phone]. This appointment should take place in the next 7 days. 4). Do NOT perform any strenuous activities and do NOT take any hot bathes or use a suana. Your heart is enlarged and it is dangerous for you to perform any strenuous activities. 5). Please make sure to have the following prescriptions filled at your pharmacy and use as directed: Aspirin 81 mg, 1 tablet by mouth 1x/day (9 AM), Dispense #30, NO refills Cardizem 30 mg, 1 tablet by mouth 4x/day (9 AM, 1 PM, 5 PM, 9 PM), Dispense #120 , NO refills Metoprolol Tartrate 12.5 mg, 1 tablet by mouth 2x/day (9 AM and 9 PM), Dispense #60, NO refills 6). Please take care and be well. Referrals: Danial Smith MD [Staff Provider] -
== END 2017-10-20 15:20 | disposition home or self-care (01) | DRG 143 ==
LOC: C.ER 12:54 → C.9E 15:09 → C.6T 18:12 → OBSVTOIN 10-19 12:05
PROVIDERS: ADMIT Family Medicine; ATTEND Family Medicine
DX: R07.89 Other chest pain (principal); I42.1 Obstructive hypertrophic cardiomyopathy; I10 Essential (primary) hypertension; E78.5 Hyperlipidemia, unspecified; K29.70 Gastritis, unspecified, without bleeding; I51.7 Cardiomegaly

== ENCOUNTER 2017-12-03 01:05 | Inpatient (IN) | payer OTHER ==
[2017-12-03 01:06] VITALS: BMI 34.7
--- NOTE | 2017-12-03 01:26 | C.PDOC ---
History Of Present Illness Pt presents. Pt feeling short of breath, with cough for about 1 week, which got progressively worse. and having some chest discomfort. Speaking in 5-6- word sentences Time Seen by Provider: 12/03/17 01:25 Chief Complaint (Nursing): Shortness Of Breath History Per: Patient History/Exam Limitations: no limitations Onset/Duration Of Symptoms: Hrs Current Symptoms Are (Timing): Worse Initiating Event: Upper Respiratory Illness Quality: Dull Exacerbating Factor(s): Coughing. denies: Exertion Current Respiratory Medications: See Home Med List Severity: Moderate Pain Scale Rating Of: 4 Associated Symptoms: Chest Pain. denies: Fever, Chills Reports Recently: Seen In ED, Treated By A Physician Recent travel outside of the [place]: No Additional History Per: Patient Past Medical History Reviewed: Historical Data, Nursing Documentation, Vital Signs Vital Signs: Last Vital Signs Temp 98.7 F 12/03/17 01:11 Pulse 80 12/03/17 02:15 Resp 18 12/03/17 02:15 BP 149/87 12/03/17 02:15 Pulse Ox 97 12/03/17 02:15 - Medical History PMH: Back Problems, Gastritis, HTN, Pneumonia (2017) Denies: Chronic Kidney Disease Surgical History: Carotid Endarterectomy - [facility] Procedures MEASURE OF CARDIAC SAMPL & PRESSURE, L HEART, PERC APPROACH (10/10/15) PLAIN RADIOGRAPHY OF LEFT HEART USING LOW OSMOLAR CONTRAST (10/10/15) Family History: States: No Known Family Hx - Social History Hx Tobacco Use: No Hx Alcohol Use: No Hx Substance Use: No - Immunization History Hx Tetanus Toxoid Vaccination: No Hx Influenza Vaccination: No Hx Pneumococcal Vaccination: Yes Review Of Systems Constitutional: Negative for: Fever, Chills Eyes: Negative for: Vision Change ENT: Negative for: Throat Pain Cardiovascular: Positive for: Chest Pain Respiratory: Positive for: Cough, Shortness of Breath, Wheezing. Negative for: Sputum Gastrointestinal: Negative for: Nausea, Vomiting, Abdominal Pain Genitourinary: Negative for: Dysuria Musculoskeletal: Negative for: Back Pain Skin: Negative for: Rash Neurological: Negative for: Weakness Psych: Negative for: Anxiety Physical Exam - Physical Exam Appears: Non-toxic Skin: Warm, Dry Head: Normacephalic Eye(s): bilateral: Normal Inspection Oral Mucosa: Moist Neck: Supple Chest: Symmetrical Cardiovascular: Rhythm Regular Respiratory: Decreased Breath Sounds, Rales, No Rhonchi, Wheezing Gastrointestinal/Abdominal: Soft, No Tenderness, No Distention Back: Normal Inspection Extremity: Normal ROM Extremity: Bilateral: Atraumatic Pulses: Left Dorsalis Pedis: Normal, Right Dorsalis Pedis: Normal Neurological/Psych: Oriented x3, Normal Speech, Normal Cognition Gait: Steady ED Course And Treatment - Laboratory Results Result Diagrams: 12/03/17 02:35 12/03/17 02:35 ECG: Interpreted By Me, Viewed By Me ECG Rhythm: Sinus Rhythm (70), 1st Degree HB, Nonspecific Changes O2 Sat by Pulse Oximetry: 97 Pulse Ox Interpretation: Normal - Radiology CXR: Interpreted by Me, Viewed By Me CXR Interpretation: Yes: Infiltrates (rll). No: Fracture, Pnemothorax Disposition Discussed With Dr.: Catrachito Arellano Comment: accepted the pt on his service and took over the care at 4:20AM Doctor Will See Patient In The: ED Counseled Patient/Family Regarding: Studies Performed, Diagnosis - Disposition Disposition: HOSPITALIZED Disposition Time: 04:21 Condition: FAIR Forms: [employer] (Vietnamese) - Clinical Impression Clinical Impression: Dyspnea, Respiratory distress, CHF (congestive heart failure) Decision To Admit - Pt Status Changed To: Hospital Disposition Of: Inpatient - Admit Certification Admit to Inpatient:: After my assessment, the patient will require hospitalization for at least two midnights. This is because of the severity of symptoms shown, intensity of services needed, and/or the medical risk in this patient being treated as an outpatient. - InPatient: Physician Admission Certification: I certify that this patient requires 2 or more midnights of care for the following reason:: After my assessment, the patient will require hospitalization for at least two midnights. This is because of the severity of symptoms shown, intensity of services needed, and/or the medical risk in this patient being treated as an outpatient. - . Bed Request Type: Telemetry Admitting Physician: Catrachito Arellano Patient Diagnosis: Dyspnea, Respiratory distress, CHF (congestive heart failure)
[2017-12-03] MEDS ORDERED: Albuterol-Ipratrop 3 mg / 0.5 (3 ml) UD ONE (02:27)
[2017-12-03 02:37] LABS: ABG ALLEN TEST POS; ARTERIAL BLOOD GAS HCO3 22.8 mmol/L (21-28); ARTERIAL BLOOD GAS O2 SAT 91.5 % (95-98); ARTERIAL BLOOD GAS PCO2 34 mm/Hg (35-45); ARTERIAL BLOOD GAS PH 7.41 (7.35-7.45); ARTERIAL BLOOD GAS PO2 52 mm/Hg (80-100); ARTERIAL BLOOD GAS TCO2 22.6 mmol/L (22-28)
[2017-12-03] MEDS: Albuterol-Ipratrop 3 mg / 0.5 (3 ml) UD IH SCH (02:38)
[2017-12-03 02:46] LABS: BASO % 0.6 % (0.0-2.0); EOS # 0.4 K/uL (0.0-0.7); EOS % 6.6 % (0.0-4.0); HEMOGLOBIN 10.4 g/dL (11.0-16.0); LYMPH # 1.9 K/uL (1.0-4.3); MEAN CELL VOLUME 87.3 fL (81.0-99.0); MEAN CORPUSCULAR HEMOGLOBIN 29.3 pg (27.0-31.0); MEAN CORPUSCULAR HGB CONC 33.5 g/dL (33.0-37.0); MEAN PLATELET VOLUME 8.8 fL (7.2-11.7); MONO # 0.6 K/uL (0.0-0.8); MONO % 11.1 % (0.0-10.0); NEUT # 2.8 K/uL (1.8-7.0); NEUT % 48.7 % (50.0-75.0); NRBC % 0.1 % (0.0-2.0); RBC 3.55 Mil/uL (3.80-5.20); RED CELL DISTRIBUTION WIDTH 14.7 % (11.5-14.5); WHITE BLOOD COUNT 5.7 K/uL (4.8-10.8)
[2017-12-03 02:50] LABS: INR 1.1
[2017-12-03 02:55] LABS: ALB/GLOB RATIO 1.1 (1.0-2.1); ALBUMIN 3.4 g/dL (3.5-5.0); ALT/SGPT 73 U/L (9-52); AST/SGOT 52 U/L (14-36); BLOOD UREA NITROGEN 23 mg/dL (7-17); CALCIUM 8.1 mg/dl (8.6-10.4); GFR AFRICAN-AMERICAN > 60; GFR NON-AFRICAN AMERICAN > 60
[2017-12-03 03:06] LABS: B-TYPE NATRIURETIC PEPTIDE 1010 pg/mL (0-900)
--- NOTE | 2017-12-03 04:31 | CP.PCM.HP ---
History of Present Illness - History of Present Illness History of Present Illness: Patient is a 62 y/o female with past medical history of newly diagnosed Hypertrophic Cardiomyopathy, HTN, CAD, HLD, pneumonia, gastritis who presents to the ED with complaint of shortness of breath. Patient was hospitalized in October for chest pain and found to have Hypertrophic Cardiomyopathy. Patient was to follow up with the clinic, get a repeat echo, and see Dr. Smith after discharge. Patient claims she only knew about seeing Dr. Smith and she couldn't go to him because she doesn't have insurance. Patient also stopped taking the prescribed medications after the ran out stating that she didn't know she was to continue taking them. Since being discharged on 10/20/17, patient says she has been having shortness of breath with activity. She sleeps flat at night, but wakes up most nights with shortness of breath. The past 3 days patient's shortness of breath has increased. She also developed a cough with green phlegm and sore throat. She denies dizziness, lightheadedness, syncope, fever, chills, abdominal pain, n/v/d/c, and leg pain. PMD: [facility] PMHx: newly diagnosed Hypertrophic Cardiomyopathy, CAD, HTN, HLD, pneumonia, gastritis SHx: cardiac catheterization Allergies: NKDA FHx: aunts breast and ovarian CA Meds: ASA 81mg Social: denies tobacco, alcohol, and drug use; former seamstress, lives alone Present on Admission - Present on Admission Any Indicators Present on Admission: No History of DVT/PE: No History of Uncontrolled Diabetes: No Urinary Catheter: No Decubitus Ulcer Present: No Review of Systems - Constitutional Constitutional: absent: Anorexia, Chills - EENT Eyes: Blurred Vision Nose/Mouth/Throat: Sore Throat. absent: Nasal Congestion - Cardiovascular Cardiovascular: Chest Pain, Dyspnea, Dyspnea on Exertion, Edema - Respiratory Respiratory: Dyspnea on Exertion, Wheezing, Change in Mucous Color - Gastrointestinal Gastrointestinal: absent: Abdominal Pain, Constipation, Diarrhea, Nausea, Vomiting - Genitourinary Genitourinary: absent: Difficulty Urinating, Dysuria - Integumentary Integumentary: absent: Rash - Hematologic/Lymphatic Hematologic: absent: Easy Bleeding, Easy Bruising Past Patient History - Infectious Disease Hx of Infectious Diseases: None - Past Medical History & Family History Past Medical History?: Yes - Past Social History Smoking Status: Never Smoked - CARDIAC Hx Hypertension: Yes - PULMONARY Hx Pneumonia: Yes (2017) - NEUROLOGICAL Hx Neurological Disorder: No - HEENT Hx HEENT Problems: No Hx Cataracts: (left eye..PT DENIES 09/26/17) - RENAL Hx Chronic Kidney Disease: No - ENDOCRINE/METABOLIC Hx Endocrine Disorders: No - HEMATOLOGICAL/ONCOLOGICAL Hx Blood Disorders: No - INTEGUMENTARY Hx Dermatological Problems: No - MUSCULOSKELETAL/RHEUMATOLOGICAL Hx Musculoskeletal Disorders: Yes Hx Back Pain: Yes Hx Falls: No - GASTROINTESTINAL Hx Gastritis: Yes - GENITOURINARY/GYNECOLOGICAL Hx Genitourinary Disorders: No - PSYCHIATRIC Hx Substance Use: No - SURGICAL HISTORY Hx Carotid Endarterectomy: Yes - ANESTHESIA Hx Anesthesia: Yes Hx Anesthesia Reactions: No Meds Allergies/Adverse Reactions: Allergies Allergy/AdvReac Type Severity Reaction Status Date / Time No Known Allergies Allergy Verified 10/18/17 13:11 Physical Exam - Constitutional Appears: Non-toxic, No Acute Distress - Head Exam Head Exam: ATRAUMATIC, NORMAL INSPECTION, NORMOCEPHALIC - Eye Exam Eye Exam: EOMI, Normal appearance - ENT Exam ENT Exam: Mucous Membranes Moist - Respiratory Exam Respiratory Exam: Chest Wall Tenderness, Rales, Wheezes. absent: Accessory Muscle Use - Cardiovascular Exam Cardiovascular Exam: REGULAR RHYTHM, RRR, +S1, +S2 Additional comments: holosystolic murmur - GI/Abdominal Exam GI & Abdominal Exam: Normal Bowel Sounds, Soft. absent: Distended, Firm, Guarding, Tenderness - Extremities Exam Extremities exam: Positive for: normal inspection, pedal edema (trace pitting edema b/l). Negative for: tenderness - Back Exam Back exam: NORMAL INSPECTION - Neurological Exam Neurological exam: Alert, Oriented x3 - Psychiatric Exam Psychiatric exam: Normal Affect, Normal Mood - Skin Skin Exam: Intact, Normal Color, Warm Results - Vital Signs Recent Vital Signs: Last Vital Signs Temp 98.7 F 12/03/17 01:11 Pulse 80 12/03/17 02:15 Resp 18 12/03/17 02:15 BP 149/87 12/03/17 02:15 Pulse Ox 97 12/03/17 04:22 - Labs Result Diagrams: 12/03/17 02:35 12/03/17 02:35 Labs: Laboratory Results - last 24 hr 12/03/17 12/03/17 12/03/17 02:30 02:35 02:35 WBC 5.7 RBC 3.55 L Hgb 10.4 L Hct 31.0 L MCV 87.3 MCH 29.3 MCHC 33.5 RDW 14.7 H Plt Count 193 MPV 8.8 Neut % (Auto) 48.7 L Lymph % (Auto) 33.0 Stanley % (Auto) 11.1 H Eos % (Auto) 6.6 H Baso % (Auto) 0.6 Neut # (Auto) 2.8 Lymph # (Auto) 1.9 Stanley # (Auto) 0.6 Eos # (Auto) 0.4 Baso # (Auto) 0.0 PT 12.0 INR 1.1 APTT 34 Puncture Site Rr pCO2 34 L pO2 52 L HCO3 22.8 ABG pH 7.41 ABG Total CO2 22.6 ABG O2 Saturation 91.5 L ABG Base Excess -2.4 L Guillermo Test Pos ABG Potassium 3.6 A-a O2 Difference 55.0 Respiratory Index 1.1 Sodium 143.0 Chloride 117.0 H Glucose 91 Lactate 0.7 Vent Mode Room air FiO2 21.0 Potassium Carbon Dioxide Anion Gap BUN Creatinine Est GFR ( Amer) Est GFR (Non-Af Amer) Random Glucose Calcium Magnesium Total Bilirubin AST ALT Alkaline Phosphatase Troponin I NT-Pro-B Natriuret Pep Total Protein Albumin Globulin Albumin/Globulin Ratio Arterial Blood Potassium 3.6 12/03/17 02:35 WBC RBC Hgb Hct MCV MCH MCHC RDW Plt Count MPV Neut % (Auto) Lymph % (Auto) Stanley % (Auto) Eos % (Auto) Baso % (Auto) Neut # (Auto) Lymph # (Auto) Stanley # (Auto) Eos # (Auto) Baso # (Auto) PT INR APTT Puncture Site pCO2 pO2 HCO3 ABG pH ABG Total CO2 ABG O2 Saturation ABG Base Excess Guillermo Test ABG Potassium A-a O2 Difference Respiratory Index Sodium 145 Chloride 110 H Glucose Lactate Vent Mode FiO2 Potassium 4.0 Carbon Dioxide 22 Anion Gap 17 BUN 23 H Creatinine 0.7 Est GFR ( Amer) > 60 Est GFR (Non-Af Amer) > 60 Random Glucose 98 Calcium 8.1 L Magnesium 1.9 Total Bilirubin 0.9 AST 52 H D ALT 73 H D Alkaline Phosphatase 83 Troponin I 0.0670 NT-Pro-B Natriuret Pep 1010 H Total Protein 6.5 Albumin 3.4 L Globulin 3.1 Albumin/Globulin Ratio 1.1 Arterial Blood Potassium Assessment & Plan - Assessment and Plan (Free Text) Assessment: Elevated brain natriuretic peptide (BNP) level * BNP 1010 * lasix 20mg ivp and duonebs given in ED * gentle diuresis secondary to hypertrophic cardiomyopathy * rales and wheezing on exam * trace peripheral edema * daily weights * I/Os * 2g Na diet Hypertrophic Cardiomyopathy * Echo 10/18/17: Left ventricle systolic function is normal. Ejection fraction is >70%. No aortic regurg. mitral reurg is mild to moderate. mild tricuspid regurg. mild pulm htn. trace to mild pulmonic valvular regurg. * Cardizem 30mg qid * Metoprolol Tartrate 12.5mg BID * ASA 81 mg po daily * Cardiology consult, Dr. Smith, help appreciated * repeat ECHO History of pneumonia * Afebrile, no leukocytosis, no cough * f/u cxray HTN (hypertension) * Cardizem 30mg qid * Metoprolol Tartrate 12.5mg BID H/O gastritis * Pepcid 20 mg PO BID started for GI prophylaxis Prophylactic measure * GI: Pepcid 20 mg PO BID * DVT: Heparin 5000 units SC Q8H, scds
[2017-12-03 05:26] LABS: HDL CHOLESTEROL 50 mg/dL (30-70)
[2017-12-03 05:36] LABS: LDL CHOLESTEROL 85 mg/dL (0-129)
--- NOTE | 2017-12-03 05:55 | CP.PCM.PN ---
Subjective - Date & Time of Evaluation Date of Evaluation: 12/03/17 Time of Evaluation: 05:49 - Subjective Subjective: Patient was suspected during last admit, of hypertorphic obstructive cardiomyopathy, started on cardizem 30mg q6 and metoprolol 12.5mg bid, arb held and recommended to do f/u echo and f/u with cardiology clinic with Dr. Smith. Patient finished the prescriptions in 1 month, didn't f/u for clinic, echo, or cardiology. For last 2 wks just taking low dose asa. SOB, orthopnea, pnd symptoms gradually worsening, hence presented. CXR interstitial edema, CMG noticed, not hypoxic, maintained, bp, pulse, euvolemic. Plan Counselled about compliance Restart cardizem, metoprolol Very gentle diuresis to help congestions symptoms, avoid hypovolemia. Echo Cardiology reval. See orders for detail. Objective - Vital Signs/Intake and Output Vital Signs (last 24 hours): Temp Pulse Resp BP Pulse Ox 98.1 F 86 20 150/90 97 12/03/17 05:03 12/03/17 05:03 12/03/17 05:03 12/03/17 05:03 12/03/17 05:03 - Medications Medications: Current Medications Aspirin (Aspirin Chewable) 81 mg PO DAILY [facility] Diltiazem HCl (Cardizem) 30 mg PO QID [facility] Famotidine (Pepcid) 20 mg PO DAILY [facility] Heparin Sodium (Porcine) (Heparin) 5,000 units SC Q8 [facility] Metoprolol Tartrate (Lopressor) 12.5 mg PO BID [facility] - Labs Labs: 12/03/17 02:35 12/03/17 02:35 PT 12.0 SECONDS (9.7-12.2) 12/03/17 02:35 INR 1.1 12/03/17 02:35 APTT 34 SECONDS (21-34) 12/03/17 02:35
[2017-12-03 07:56] LABS: SQUAMOUS EPITHIAL < 1 /hpf (0-5); URINE BILIRUBIN NEGATIVE (NEGATIVE); URINE BLOOD 2+ (NEGATIVE); URINE CLARITY Clear (Clear); URINE COLOR Straw (YELLOW); URINE GLUCOSE (UA) NORMAL (Normal); URINE LEUKOCYTE ESTERASE NEG Leu/uL (Negative); URINE PROTEIN NEGATIVE (NEGATIVE); URINE UROBILINOGEN NORMAL mg/dL (0.2-1.0)
[2017-12-03 09:27] LABS: CK-MB 1.12 ng/mL (0.0-3.38); TROPONIN I 0.055 ng/mL (0.00-0.120)
--- NOTE | 2017-12-03 09:58 | RAD ---
PROCEDURE: CHEST RADIOGRAPH, 1 VIEW HISTORY: SOB COMPARISON: Chest radiographs 10/19/2017. FINDINGS: LUNGS: Cardiac silhouette remains prominent and prominent hilar vascular markings are appreciated swells limited increase in reticular markings most compatible with active CHF. Limited right perihilar/ infrahilar airspace disease is not completely excluded. PLEURA: No definite right pleural effusion. Limited left pleural effusion is difficult to completely exclude. CARDIOVASCULAR: As above. OSSEOUS STRUCTURES: No significant abnormalities. VISUALIZED UPPER ABDOMEN: Normal. OTHER FINDINGS: None. IMPRESSION: Active CHF apparent. Underlying airspace disease in the right perihilar/ infrahilar space not completely excluded. Trace left pleural effusion also not excluded.
--- NOTE | 2017-12-03 11:30 | CP.PCM.PN ---
<Shiv Villa S - Last Filed: 12/03/17 12:51> Subjective - Date & Time of Evaluation Date of Evaluation: 12/03/17 Time of Evaluation: 11:24 - Subjective Subjective: Progress Note for Dr. Caballero's Service Patient was seen and examined at bedside this morning. I discussed with her the previous discharge instructions that were explained to her by Dr. Yasmeen Caballero with the help of divine healer which are as follows: "As per Dr. Smith's read of Echocardiogram Added Cardizem 30 mg PO Q6H and Metoprolol Tartrate 12.5 mg PO 2x/day We will see how patient feels tomorrow 10/20/17 afternoon after walk and if no reproduction of pain, then will discharge as per instructions from Cardiology She will need repeat Echocardiogram in 1 week through [facility] She will need referral to see Machine Design Engineer Dr. Smith in his office from [facility] for review of this Echocardiogram and based upon results Dr. Smith to perform Cardiac Catheterization to determine if patient has Septal Artery. If Septal Artery is present then this will need ablation. If NO Septal Artery is present then patient will need Septoplasty. Dr. Smith will arrange through his contact at [facility]. He is aware that patient is uninsured but will follow her." The patient explains that she was unable to follow up in the clinic because she did not have giorgio care. When asked why she did not apply she states that she does not know how to go about applying. In respect to follow up with Dr. Smith, she states that she has not attempted to follow up with him yet and her reasoning is unclear. She recognizes that she must complete these tasks to advance forward with her medical treatment. Objective - Vital Signs/Intake and Output Vital Signs (last 24 hours): Temp Pulse Resp BP Pulse Ox 98.1 F 75 20 104/66 96 12/03/17 09:40 12/03/17 09:40 12/03/17 09:40 12/03/17 09:40 12/03/17 09:40 Intake and Output: 12/03/17 12/03/17 06:59 18:59 Intake Total 110 Balance 110 - Medications Medications: Current Medications Aspirin (Aspirin Chewable) 81 mg PO DAILY [facility] Last Admin: 12/03/17 10:33 Dose: 81 mg Diltiazem HCl (Cardizem) 30 mg PO QID [facility] Last Admin: 12/03/17 10:34 Dose: 30 mg Famotidine (Pepcid) 20 mg PO DAILY [facility] Last Admin: 12/03/17 10:34 Dose: 20 mg Heparin Sodium (Porcine) (Heparin) 5,000 units SC Q8 [facility] Last Admin: 12/03/17 10:34 Dose: 5,000 units Metoprolol Tartrate (Lopressor) 12.5 mg PO BID [facility] Last Admin: 12/03/17 10:33 Dose: 12.5 mg - Labs Labs: 12/03/17 02:35 12/03/17 02:35 PT 12.0 SECONDS (9.7-12.2) 12/03/17 02:35 INR 1.1 12/03/17 02:35 APTT 34 SECONDS (21-34) 12/03/17 02:35 - Constitutional Appears: No Acute Distress - Head Exam Head Exam: ATRAUMATIC, NORMOCEPHALIC - Eye Exam Eye Exam: EOMI, Normal appearance, PERRL - ENT Exam ENT Exam: Mucous Membranes Moist - Respiratory Exam Respiratory Exam: Clear to Ausculation Bilateral, NORMAL BREATHING PATTERN. absent: Respiratory Distress - Cardiovascular Exam Cardiovascular Exam: REGULAR RHYTHM, +S1, +S2, Murmur (holosystolic) - GI/Abdominal Exam GI & Abdominal Exam: Soft. absent: Tenderness - Extremities Exam Extremities Exam: absent: Pedal Edema - Neurological Exam Neurological Exam: Alert, Awake, Oriented x3 - Psychiatric Exam Psychiatric exam: Normal Affect, Normal Mood - Skin Skin Exam: Dry, Warm Assessment and Plan - Assessment and Plan (Free Text) Plan: Hypertrophic Cardiomyopathy From previous admission- As per Dr. Smith's read of Echocardiogram She will need referral to see Machine Design Engineer Dr. Smith in his office from [facility] for review of Echocardiogram and based upon results Dr. Smith to perform Cardiac Catheterization to determine if patient has Septal Artery. If Septal Artery is present then this will need ablation. If NO Septal Artery is present then patient will need Septoplasty. Dr. Smith will arrange through his contact at [facility]. He is aware that patient is uninsured but will follow her. This was all explained to patient with Lunchroom Operator on 10/19/17 Echo 10/18/17: Left ventricle systolic function is normal. Ejection fraction is > 70%. No aortic regurg. mitral reurg is mild to moderate. mild tricuspid regurg. mild pulm htn. trace to mild pulmonic valvular regurg. BNP 1010 Gentle diuresis in ED with lasix 20mg CXR: apparent CHF Trops: 0.0670, 0.0550, f/u final trop Total cholesterol 156, LDL 85, HDL 50, Triglycerides 73 Cardizem 30 mg PO Q6H Metoprolol Tartrate 12.5 mg PO BID ASA 81 mg po daily Cardiology consult, Dr. Smith, help appreciated HTN Well controlled Cardizem 30mg qid Metoprolol Tartrate 12.5mg BID Gastritis Pepcid 20 mg PO BID started for GI prophylaxis Prophylactic measure GI: Pepcid 20 mg PO BID DVT: Heparin 5000 units SC Q8H, scds Heart healthy diet Discharge instructions when ready: 1). Schedule appointment with the [facility] at [facility] by calling [phone]. This appointment should take place ERIKA. 2). Schedule an appointment with Machine Design Engineer Dr. Smith by calling his office at [phone]. This appointment should take place in the next 7 days. 3). Do NOT perform any strenuous activities and do NOT take any hot bathes or use a suana. Your heart is enlarged and it is dangerous for you to perform any strenuous activities. 4). Please make sure to have the following prescriptions filled at your pharmacy and use as directed: Aspirin 81 mg, 1 tablet by mouth 1x/day (9 AM), Dispense #30, NO refills Cardizem 30 mg, 1 tablet by mouth 4x/day (9 AM, 1 PM, 5 PM, 9 PM), Dispense #120 , NO refills Metoprolol Tartrate 12.5 mg, 1 tablet by mouth 2x/day (9 AM and 9 PM), Dispense #60, NO refills Case discussed with Dr. Yasmeen Villa D.O. <Gaudencio Caballero - Last Filed: 12/03/17 17:18> Objective - Vital Signs/Intake and Output Vital Signs (last 24 hours): Temp Pulse Resp BP Pulse Ox 98.1 F 75 20 104/66 96 12/03/17 09:40 12/03/17 09:40 12/03/17 09:40 12/03/17 09:40 12/03/17 09:40 Intake and Output: 12/03/17 12/03/17 06:59 18:59 Intake Total 110 240 Balance 110 240 - Medications Medications: Current Medications Aspirin (Aspirin Chewable) 81 mg PO DAILY [facility] Last Admin: 12/03/17 10:33 Dose: 81 mg Diltiazem HCl (Cardizem) 30 mg PO QID [facility] Last Admin: 12/03/17 13:21 Dose: 30 mg Famotidine (Pepcid) 20 mg PO DAILY [facility] Last Admin: 12/03/17 10:34 Dose: 20 mg Heparin Sodium (Porcine) (Heparin) 5,000 units SC Q8 [facility] Last Admin: 12/03/17 13:21 Dose: 5,000 units Metoprolol Tartrate (Lopressor) 12.5 mg PO BID [facility] Last Admin: 12/03/17 10:33 Dose: 12.5 mg - Labs Labs: 12/03/17 02:35 12/03/17 02:35 PT 12.0 SECONDS (9.7-12.2) 12/03/17 02:35 INR 1.1 12/03/17 02:35 APTT 34 SECONDS (21-34) 12/03/17 02:35 Attending/Attestation - Attestation I have personally seen and examined this patient.: Yes I have fully participated in the care of the patient.: Yes I have reviewed all pertinent clinical information, including history, physical exam and plan: Yes Notes (Text): 12/03/17 17:03 Patient was seen and examined at 2:00 PM with the help of Nurse Blackwell who translated in Mexican. Exam, assessment and plan were gone over with the resident. Again thoroughly explained to patient what the follow up instructions are and that her medications are forever and that she should never stop taking them. In the interest of moving things a long to prevent further delay in the care of this patient, Medicine Team needs to do the followin). Have repeat Echocardiogram performed on Tuesday morning 12/05/17 as it can not be performed at this time on the weekend. 2). Discharge the patient with a 3 month supply of her medications just in case the patient is having any difficulty obtaining appointment with the [facility]. 3). Schedule appointment for patient with the [facility] so that the physicians there can coordinate her care. 4). Notify Dr. Smith that repeat has been done for his review and schedule an appointment for this patient with his office so that he may then arrange for Cardiac Catheterization to determine if there is a Septal Artery. If there is a Septal Artery then ablation. If NO septal artery then will need Septoplasty, which Dr. Smith has indicated in the past admission he will arrange with his contact at [facility]. Gaudencio Caballero D.O.
[2017-12-03 16:10] LABS: TROPONIN I 0.06 ng/mL (0.00-0.120)
[2017-12-03 17:40] LABS: CK-MB 1.16 ng/mL (0.0-3.38)
[2017-12-04 07:50] LABS: BASO % 0.7 % (0.0-2.0); EOS # 0.3 K/uL (0.0-0.7); EOS % 5.1 % (0.0-4.0); HEMOGLOBIN 10.9 g/dL (11.0-16.0); LYMPH # 2.3 K/uL (1.0-4.3); LYMPH % 35.8 % (20.0-40.0); MEAN CELL VOLUME 86.4 fL (81.0-99.0); MEAN CORPUSCULAR HEMOGLOBIN 29.2 pg (27.0-31.0); MEAN CORPUSCULAR HGB CONC 33.8 g/dL (33.0-37.0); MEAN PLATELET VOLUME 8.7 fL (7.2-11.7); MONO # 0.7 K/uL (0.0-0.8); MONO % 10.7 % (0.0-10.0); NEUT % 47.7 % (50.0-75.0); RBC 3.74 Mil/uL (3.80-5.20); RED CELL DISTRIBUTION WIDTH 15.2 % (11.5-14.5); WHITE BLOOD COUNT 6.4 K/uL (4.8-10.8)
[2017-12-04 08:05] LABS: ALB/GLOB RATIO 1.1 (1.0-2.1); ALBUMIN 3.7 g/dL (3.5-5.0); ALT/SGPT 67 U/L (9-52); AST/SGOT 35 U/L (14-36); BLOOD UREA NITROGEN 19 mg/dL (7-17); CALCIUM 8.8 mg/dl (8.6-10.4); GFR AFRICAN-AMERICAN > 60; GFR NON-AFRICAN AMERICAN > 60
--- NOTE | 2017-12-04 11:31 | CP.PCM.PN ---
Subjective - Date & Time of Evaluation Date of Evaluation: 12/04/17 Time of Evaluation: 11:15 - Subjective Subjective: Hospitalist Progress Note Patient was seen and examined at 11:15 AM 12/04/17 662 B. Nauruan translation provided by EDMOND Steve Please see Assessment and Plans below for details Upon ROS: Complains of chronic upper back pain Cough dry nonproductive Exam: General: AAOX3, NAD HEENT: NCA, EOMI, PERRLA, NO cervical/supraclavicular/submandibular lymphadenopathy, NO pharyngeal erythema/exudate, Nasal Turbinates are nonerythematous/nonedematous, Oral Mucosa is moist Cardio: NS1 and NS2, Holosystolic Murmur Resp: CTA B/L, NO R/R/W GI: BSx4, Soft, NT, Liver and Spleen were NOT enlarged, NO guarding/rebound tenderness Ext: Pulses are strong and equal, Capillary Refill is 2 seconds, NO edema Neuro: CN II through XII are grossly intact Assessments: 1). Hypertrophic Cardiomyopathy Cardizem 30 mg PO Q6H Metoprolol Tartrate 12.5 mg PO 2x/day ASA 81 mg PO 1x/day Repeat 2D Echocardiogram to be performed morning 12/05/17 She will need referral to see [employer] Dr. Smith in his office from [facility] for review of this Echocardiogram and based upon results Dr. Smith to perform Cardiac Catheterization to determine if patient has Septal Artery. If Septal Artery is present then this will need ablation by Dr. Smith. If NO Septal Artery is present then patient will need Septoplasty. Dr. Smith will arrange through his contact at [facility]. He is aware that patient is uninsured but will follow her. This was all explained to patient with Cook Mess on 10/19/17 and again on 12/03/17 with translation provided by Nurse Blackwell. I also had the patient repeat back to me in Nauruan what she needed to do to make sure. Status: Chronic 2). Hx HTN Cardizem and Metoprolol as above Status: Chronic 3). Hx HLD Upon last admission in October 2017: Total Cholesterol 216 LDL 121 Triglycerides 125 HDL 63 HOLD Off on Statin for now Status: Chronic 4). Hx Gastritis Pepcid 20 mg PO 2x/day Status: Chronic 5). Prophylaxis Pepcid 20 mg PO 2x/day Heparin 5,000 Units SC Q8H Florastor 250 mg PO BID As patient has failed to follow instructions were that were thoroughly explained to her upon her discharge on 10/20/17 and failed to continue to take her medications as she ran out of them, Medicine Team please make sure of the followin). Have repeat 2D Echocardiogram (which needed to be performed after her discharge from the hospital on 10/20/17) performed on morning of 12/05/17. 2). Call [employer] Dr. Smith and notify him that 2D Echocardiogram has been performed for his review. 3). Ask Dr. Smith when he would like for patient to follow up with him at his office for scheduling of Cardiac Catheterization. 4). Schedule an appointment for the patient at our [facility] to take place in the next 7 to 10 days for coordination of her care, for providing her with a referral to see Dr. Smith, as well as clearing her for tooth extraction through the [facility] when she has been appropriately evaluated by Dr. Smith. 5). Provide her with a prescription for 3 month supply of her medications which are the following: Aspirin 81 mg, 1 tablet by mouth 1x/day (9 AM), Dispense #90, NO refills Cardizem 30 mg, 1 tablet by mouth 4x/day (9 AM, 1 PM, 5 PM, 9 PM), Dispense #360 , NO refills Metoprolol Tartrate 12.5 mg, 1 tablet by mouth 2x/day (9 AM and 9 PM), Dispense #180, NO refills 6). I have included below her discharge instructions. Please add to these instructions the date and times of her follow up with the clinic and with Dr. Smith. The following instructions were explained to the patient thoroughly on 12/03/17 and copy will need to be provided to her in Nauruan at the time of her discharge : 1). Follow up with [facility] at [facility] located on Floor B of the hospital as scheduled for you. The clinic's number is [phone]. 2). Through the [facility], obtain referral to see [employer] Dr. Smith. 3). Follow up with [employer] Dr. Smith as schedule for you. His office number is [phone]. 4). Do NOT perform any strenuous activities and do NOT take any hot bathes or use a suana. Your heart is enlarged and it is dangerous for you to perform any strenuous activities. 5). Please make sure to have the following prescriptions filled at your pharmacy and use as directed. You must take these medications until further instructed by a physician. It is your responsibility to make sure that you take these medications everyday and make sure that you do not run out of them. You must obtain further refill prescriptions through the [facility]: Aspirin 81 mg, 1 tablet by mouth 1x/day (9 AM), Dispense #90, NO refills Cardizem 30 mg, 1 tablet by mouth 4x/day (9 AM, 1 PM, 5 PM, 9 PM), Dispense #360 , NO refills Metoprolol Tartrate 12.5 mg, 1 tablet by mouth 2x/day (9 AM and 9 PM), Dispense #180, NO refills 6). Please take care and be well. Gaudencio Caballero D.O. Objective - Vital Signs/Intake and Output Vital Signs (last 24 hours): Temp Pulse Resp BP Pulse Ox 97.1 F L 63 18 98/62 L 97 12/04/17 07:40 12/04/17 09:29 12/04/17 07:40 12/04/17 09:29 12/04/17 07:40 - Medications Medications: Current Medications Aspirin (Aspirin Chewable) 81 mg PO DAILY [facility] Last Admin: 12/04/17 09:30 Dose: 81 mg Diltiazem HCl (Cardizem) 30 mg PO QID [facility] Last Admin: 12/04/17 09:29 Dose: Not Given Famotidine (Pepcid) 20 mg PO DAILY [facility] Last Admin: 12/04/17 09:30 Dose: 20 mg Heparin Sodium (Porcine) (Heparin) 5,000 units SC Q8 [facility] Last Admin: 12/04/17 05:57 Dose: 5,000 units Metoprolol Tartrate (Lopressor) 12.5 mg PO BID [facility] Last Admin: 12/04/17 09:29 Dose: Not Given - Labs Labs: 12/04/17 07:36 12/04/17 07:36 PT 12.0 SECONDS (9.7-12.2) 12/03/17 02:35 INR 1.1 12/03/17 02:35 APTT 34 SECONDS (21-34) 12/03/17 02:35
[2017-12-05 07:21] LABS: BASO % 0.6 % (0.0-2.0); EOS # 0.3 K/uL (0.0-0.7); HEMOGLOBIN 11.1 g/dL (11.0-16.0); LYMPH # 2.7 K/uL (1.0-4.3); MEAN CELL VOLUME 86.4 fL (81.0-99.0); MEAN CORPUSCULAR HGB CONC 33.6 g/dL (33.0-37.0); MEAN PLATELET VOLUME 8.6 fL (7.2-11.7); MONO # 0.6 K/uL (0.0-0.8); NEUT # 3.1 K/uL (1.8-7.0); NEUT % 45.4 % (50.0-75.0); NRBC % 0.1 % (0.0-2.0); RBC 3.83 Mil/uL (3.80-5.20); RED CELL DISTRIBUTION WIDTH 14.6 % (11.5-14.5); WHITE BLOOD COUNT 6.8 K/uL (4.8-10.8)
[2017-12-05 08:00] LABS: ALBUMIN 3.7 g/dL (3.5-5.0); ALT/SGPT 61 U/L (9-52); AST/SGOT 35 U/L (14-36); BLOOD UREA NITROGEN 19 mg/dL (7-17); CALCIUM 8.6 mg/dl (8.6-10.4); GFR AFRICAN-AMERICAN > 60; GFR NON-AFRICAN AMERICAN > 60
--- NOTE | 2017-12-05 10:45 | CP.PCM.CON ---
<Mayank Alanis - Last Filed: 12/05/17 12:02> History of Present Illness - History of Present Illness History of Present Illness: Cardiology Consult Note 62 year old female with a past medical history significant for recently diagnosed HCM, childhood asthma, hypertension who presented to [facility] worsening chest pain and concurrent dyspnea. She ran out of all her medications on the 23 of November. On Tuesday of last week, she went to work, got short of breath, waited it out, and then when she went home she took a shower (luke warm temperature, she reports) and developed severe dyspnea and light headness that prompted her to go the ED. The patient's home medication have been resumed. She still complains of dyspnea or exertion and chest pain with activity. Plan is to perform cardiac catheterization tomorrow to assess for a septal artery. Other 12 point review of system is negative. PMD: [facility] PMHx: newly diagnosed Hypertrophic Cardiomyopathy, CAD, HTN, HLD, pneumonia, gastritis SHx: cardiac catheterization Allergies: NKDA FHx: aunts breast and ovarian CA Meds: ASA 81mg Social: denies tobacco, alcohol, and drug use; former seamstress, lives alone. Review of Systems - Review of Systems All systems: reviewed and no additional remarkable complaints except (as per HPI ) Past Patient History - Infectious Disease Hx of Infectious Diseases: None - Past Medical History & Family History Past Medical History?: Yes - Past Social History Smoking Status: Never Smoked - CARDIAC Hx Hypertension: Yes - PULMONARY Hx Pneumonia: Yes (2017) - NEUROLOGICAL Hx Neurological Disorder: No - HEENT Hx HEENT Problems: No Hx Cataracts: (left eye..PT DENIES 09/26/17) - RENAL Hx Chronic Kidney Disease: No - ENDOCRINE/METABOLIC Hx Endocrine Disorders: No - HEMATOLOGICAL/ONCOLOGICAL Hx Blood Disorders: No - INTEGUMENTARY Hx Dermatological Problems: No - MUSCULOSKELETAL/RHEUMATOLOGICAL Hx Musculoskeletal Disorders: Yes Hx Back Pain: Yes Hx Falls: No - GASTROINTESTINAL Hx Gastritis: Yes - GENITOURINARY/GYNECOLOGICAL Hx Genitourinary Disorders: No - PSYCHIATRIC Hx Substance Use: No - SURGICAL HISTORY Hx Carotid Endarterectomy: Yes - ANESTHESIA Hx Anesthesia: Yes Hx Anesthesia Reactions: No Meds Allergies/Adverse Reactions: Allergies Allergy/AdvReac Type Severity Reaction Status Date / Time No Known Allergies Allergy Verified 10/18/17 13:11 - Medications Medications: Current Medications Aspirin (Aspirin Chewable) 81 mg PO DAILY [facility] Last Admin: 12/05/17 10:12 Dose: 81 mg Diltiazem HCl (Cardizem) 30 mg PO QID [facility] Last Admin: 12/04/17 22:15 Dose: Not Given Famotidine (Pepcid) 20 mg PO DAILY [facility] Last Admin: 12/05/17 10:12 Dose: 20 mg Heparin Sodium (Porcine) (Heparin) 5,000 units SC Q8 [facility] Last Admin: 12/05/17 05:27 Dose: 5,000 units Metoprolol Tartrate (Lopressor) 12.5 mg PO BID [facility] Last Admin: 12/05/17 10:12 Dose: 12.5 mg Physical Exam - Constitutional Appears: Non-toxic, No Acute Distress - Head Exam Head Exam: ATRAUMATIC, NORMOCEPHALIC - Eye Exam Eye Exam: absent: Conjunctival injection - ENT Exam ENT Exam: Mucous Membranes Moist - Neck Exam Neck exam: Positive for: Normal Inspection - Respiratory Exam Respiratory Exam: Clear to Auscultation Bilateral, NORMAL BREATHING PATTERN. absent: Accessory Muscle Use - Cardiovascular Exam Cardiovascular Exam: Systolic Murmur (aortic 4/6) - GI/Abdominal Exam GI & Abdominal Exam: Normal Bowel Sounds, Soft - Extremities Exam Extremities exam: Positive for: normal inspection. Negative for: calf tenderness - Back Exam Back exam: NORMAL INSPECTION. absent: CVA tenderness (L), CVA tenderness (R) - Neurological Exam Neurological exam: Alert, CN II-XII Intact, Oriented x3 - Psychiatric Exam Psychiatric exam: Normal Affect, Normal Mood - Skin Skin Exam: Dry, Intact, Normal Color, Warm Results - Vital Signs Recent Vital Signs: Last Vital Signs Temp 97.8 F 12/05/17 07:15 Pulse 65 12/05/17 10:11 Resp 20 12/05/17 07:15 BP 125/78 12/05/17 10:11 Pulse Ox 96 12/05/17 07:15 - Labs Result Diagrams: 12/05/17 06:57 12/05/17 06:57 Labs: Laboratory Results - last 24 hr 12/05/17 12/05/17 06:57 06:57 WBC 6.8 RBC 3.83 Hgb 11.1 Hct 33.1 L MCV 86.4 MCH 29.0 MCHC 33.6 RDW 14.6 H Plt Count 247 MPV 8.6 Neut % (Auto) 45.4 L Lymph % (Auto) 40.0 [place] % (Auto) 9.0 Eos % (Auto) 5.0 H Baso % (Auto) 0.6 Neut # (Auto) 3.1 Lymph # (Auto) 2.7 [place] # (Auto) 0.6 Eos # (Auto) 0.3 Baso # (Auto) 0.0 Sodium 141 Potassium 4.4 Chloride 104 Carbon Dioxide 26 Anion Gap 15 BUN 19 H Creatinine 0.9 Est GFR ( Amer) > 60 Est GFR (Non-Af Amer) > 60 Random Glucose 91 Calcium 8.6 Total Bilirubin 0.6 AST 35 ALT 61 H Alkaline Phosphatase 74 Total Protein 7.3 Albumin 3.7 Globulin 3.6 Albumin/Globulin Ratio 1.0 Assessment & Plan - Assessment and Plan (Free Text) Assessment: 62 year old female with HOCM who presented with severe dyspnea, light headedness , and palpitations after running out of her home medications and taking a hot shower. Plan: 1) HCM - Aspirin 81m mg - Diltiazem 30 mg QID (do not hold if unless patient feels light headed) - Metoprolol 12.5 BID (do not hold this medication) - Cardiac catheterization for tomorrow to assess for septal artery Case reviewed and discussed with Dr. Smith <Danial Smith - Last Filed: 12/05/17 22:02> Meds - Medications Medications: Current Medications Aspirin (Aspirin Chewable) 81 mg PO DAILY [facility] Last Admin: 12/05/17 10:12 Dose: 81 mg Diltiazem HCl (Cardizem) 30 mg PO QID [facility] Last Admin: 12/05/17 21:58 Dose: 30 mg Famotidine (Pepcid) 20 mg PO DAILY [facility] Last Admin: 12/05/17 10:12 Dose: 20 mg Heparin Sodium (Porcine) (Heparin) 5,000 units SC Q8 [facility] Last Admin: 12/05/17 21:58 Dose: 5,000 units Sodium Chloride (Sodium Chloride 0.9%) 1,000 mls @ 50 mls/hr IV .Q20H [facility] Stop: 12/06/17 17:14 Last Admin: 12/05/17 22:00 Dose: 50 mls/hr Metoprolol Tartrate (Lopressor) 12.5 mg PO BID [facility] Last Admin: 12/05/17 17:37 Dose: 12.5 mg Rosuvastatin Calcium (Crestor) 2.5 mg PO HS [facility] Last Admin: 12/05/17 21:57 Dose: 2.5 mg Results - Vital Signs Recent Vital Signs: Last Vital Signs Temp 98.2 F 12/05/17 15:35 Pulse 62 12/05/17 16:44 Resp 20 12/05/17 15:35 BP 129/76 12/05/17 15:35 Pulse Ox 96 12/05/17 15:35 - Labs Result Diagrams: 12/05/17 06:57 12/05/17 06:57 Labs: Laboratory Results - last 24 hr 12/05/17 12/05/17 06:57 06:57 WBC 6.8 RBC 3.83 Hgb 11.1 Hct 33.1 L MCV 86.4 MCH 29.0 MCHC 33.6 RDW 14.6 H Plt Count 247 MPV 8.6 Neut % (Auto) 45.4 L Lymph % (Auto) 40.0 [place] % (Auto) 9.0 Eos % (Auto) 5.0 H Baso % (Auto) 0.6 Neut # (Auto) 3.1 Lymph # (Auto) 2.7 [place] # (Auto) 0.6 Eos # (Auto) 0.3 Baso # (Auto) 0.0 Sodium 141 Potassium 4.4 Chloride 104 Carbon Dioxide 26 Anion Gap 15 BUN 19 H Creatinine 0.9 Est GFR ( Amer) > 60 Est GFR (Non-Af Amer) > 60 Random Glucose 91 Calcium 8.6 Total Bilirubin 0.6 AST 35 ALT 61 H Alkaline Phosphatase 74 Total Protein 7.3 Albumin 3.7 Globulin 3.6 Albumin/Globulin Ratio 1.0 Attending/Attestation - Attestation I have personally seen and examined this patient.: Yes I have fully participated in the care of the patient.: Yes I have reviewed all pertinent clinical information: Yes Notes (Text): 12/05/17 22:01 known HOCM with hx of LVOT gradient sx worsened post cessation of medications plan for CHCx in am resume CCB and BB
--- NOTE | 2017-12-05 17:16 | CP.PCM.PN ---
Subjective - Date & Time of Evaluation Date of Evaluation: 12/05/17 Time of Evaluation: 07:45 - Subjective Subjective: Medicine progress note ( Dr. Padilla's service) Patient was seen and examined at bedside. Patient was resting comfortably in bed in no acute distress. Patient denies chest pain, SOB, diaphoresis but admits to mild palpitations. Patient is ambulating without any problems. Objective - Vital Signs/Intake and Output Vital Signs (last 24 hours): Temp Pulse Resp BP Pulse Ox 97.8 F 62 20 104/64 96 12/05/17 07:15 12/05/17 16:44 12/05/17 07:15 12/05/17 14:38 12/05/17 07:15 - Medications Medications: Current Medications Aspirin (Aspirin Chewable) 81 mg PO DAILY [facility] Last Admin: 12/05/17 10:12 Dose: 81 mg Diltiazem HCl (Cardizem) 30 mg PO QID [facility] Last Admin: 12/05/17 14:39 Dose: 30 mg Famotidine (Pepcid) 20 mg PO DAILY [facility] Last Admin: 12/05/17 10:12 Dose: 20 mg Heparin Sodium (Porcine) (Heparin) 5,000 units SC Q8 [facility] Last Admin: 12/05/17 14:39 Dose: 5,000 units Metoprolol Tartrate (Lopressor) 12.5 mg PO BID [facility] Last Admin: 12/05/17 10:12 Dose: 12.5 mg - Labs Labs: 12/05/17 06:57 12/05/17 06:57 PT 12.0 SECONDS (9.7-12.2) 12/03/17 02:35 INR 1.1 12/03/17 02:35 APTT 34 SECONDS (21-34) 12/03/17 02:35 - Constitutional Appears: Well, No Acute Distress - Head Exam Head Exam: ATRAUMATIC, NORMAL INSPECTION - Eye Exam Eye Exam: EOMI, Normal appearance - ENT Exam ENT Exam: Mucous Membranes Moist - Respiratory Exam Respiratory Exam: Clear to Ausculation Bilateral, NORMAL BREATHING PATTERN. absent: Prolonged Expiratory Phase, Rhonchi, Wheezes, Respiratory Distress, Stridor - Cardiovascular Exam Cardiovascular Exam: REGULAR RHYTHM, +S1, +S2, Murmur Additional comments: Holosytolic murmur - GI/Abdominal Exam GI & Abdominal Exam: Soft, Normal Bowel Sounds. absent: Distended, Firm, Guarding, Rigid, Tenderness - Extremities Exam Extremities Exam: Normal Inspection. absent: Calf Tenderness, Pedal Edema - Neurological Exam Neurological Exam: Alert, Awake, Oriented x3 - Psychiatric Exam Psychiatric exam: Normal Affect - Skin Skin Exam: Normal Color Assessment and Plan (1) Hypertrophic cardiomyopathy Assessment & Plan: Consultation: Cardiology, Dr. Smith---> Help appreciated * Management as per recommendation * Plans for cardiac catherization, 12/05/17. If Septal Artery is present then this will need ablation by Dr. Smith. If NO Septal Artery is present then patient will need Septoplasty Diagnostic imaging and labs: Echo 10/18/17: Left ventricle systolic function is normal. Ejection fraction is > 70%. No aortic regurg. mitral reurg is mild to moderate. mild tricuspid regurg. mild pulm htn. trace to mild pulmonic valvular regurg. Echo (12/03/17): Awaiting report Trops: Negative X3 Total cholesterol 156, LDL 85, HDL 50, Triglycerides 73 Medications: ASA 81mg PO daily Cardizem 30 mg PO Q6H Metoprolol Tartrate 12.5 mg PO BID Status: Acute (2) Congestive heart failure Assessment & Plan: Resolved Diagnostic imaging and labs: BNP 1010 on admission Gentle diuresis in ED with lasix 20mg CXR (12/03/17): apparent CHF Status: Acute (3) History of coronary artery disease Assessment & Plan: ASA 81mg PO daily Crestor 5mg PO daily Status: Acute (4) Gastritis Assessment & Plan: Pepcid 20 mg PO BID Status: Acute (5) HTN (hypertension) Assessment & Plan: Well controlled Cardizem 30mg qid Metoprolol Tartrate 12.5mg BID Status: Chronic (6) Prophylactic measure Assessment & Plan: GI: Pepcid 20 mg PO BID DVT: Heparin 5000 units SC Q8H, SCDs Heart healthy diet All plans and management discussed with Dr. Padilla Status: Acute
--- NOTE | 2017-12-05 17:57 | CARD ---
APPROVED REPORT EXAM: LIMITED Two-dimensional and M-mode echocardiogram with Doppler and color Doppler. Other Information Quality : GoodRhythm : INDICATION Dyspnea Chest Pain Congestive Heart Failure HOCM RISK FACTORS Hypertension <Conclusion> Technically limited and difficultstudy. L V systolic function is normal Normal chamber size.
[2017-12-05] MEDS ORDERED: Sodium Chloride 0.9% 1,000 ML IV SCH (21:15)
[2017-12-05] MEDS: Rosuvastatin Calcium 2.5 mg Tab PO SCH (21:57)
[2017-12-06 08:11] LABS: BASO % 0.6 % (0.0-2.0); EOS # 0.3 K/uL (0.0-0.7); EOS % 4.5 % (0.0-4.0); HEMOGLOBIN 11.5 g/dL (11.0-16.0); LYMPH # 2.3 K/uL (1.0-4.3); LYMPH % 34.7 % (20.0-40.0); MEAN CELL VOLUME 86.3 fL (81.0-99.0); MEAN CORPUSCULAR HEMOGLOBIN 29.2 pg (27.0-31.0); MEAN CORPUSCULAR HGB CONC 33.8 g/dL (33.0-37.0); MEAN PLATELET VOLUME 9.1 fL (7.2-11.7); MONO # 0.6 K/uL (0.0-0.8); MONO % 9.2 % (0.0-10.0); NEUT # 3.4 K/uL (1.8-7.0); NRBC % 0.1 % (0.0-2.0); RBC 3.92 Mil/uL (3.80-5.20); RED CELL DISTRIBUTION WIDTH 14.6 % (11.5-14.5); WHITE BLOOD COUNT 6.7 K/uL (4.8-10.8)
[2017-12-06 08:24] LABS: ALB/GLOB RATIO 1.1 (1.0-2.1); ALBUMIN 3.8 g/dL (3.5-5.0); ALT/SGPT 60 U/L (9-52); AST/SGOT 41 U/L (14-36); BLOOD UREA NITROGEN 16 mg/dL (7-17); CALCIUM 8.3 mg/dl (8.6-10.4); GFR AFRICAN-AMERICAN > 60; GFR NON-AFRICAN AMERICAN > 60
[2017-12-06] MEDS ORDERED: Midazolam 2 MG/2 ML VIAL ONE (09:39)
[2017-12-06] MEDS ORDERED: Iodixanol 320 MG/ML 200 ML BOTTLE IV ONE (09:40)
--- NOTE | 2017-12-06 09:46 | CP.PCM.PN ---
<ZekeMayank - Last Filed: 12/06/17 14:44> Subjective - Date & Time of Evaluation Date of Evaluation: 12/06/17 Time of Evaluation: 09:44 - Subjective Subjective: Cardiology Progress Note Patient seen and examined in cardiac cathetherization waiting area. Patient denies any chest pain, dyspnea, but does report experiencing some palpitations overnight. Chart review indicates no untoward events overnight. Objective - Vital Signs/Intake and Output Vital Signs (last 24 hours): Temp Pulse Resp BP Pulse Ox 97.7 F 53 L 20 128/68 96 12/06/17 07:00 12/06/17 08:00 12/06/17 07:00 12/06/17 07:00 12/06/17 07:00 Intake and Output: 12/06/17 12/06/17 06:59 18:59 Intake Total 400 Balance 400 - Medications Medications: Current Medications Aspirin (Aspirin Chewable) 81 mg PO DAILY [facility] Last Admin: 12/05/17 10:12 Dose: 81 mg Diltiazem HCl (Cardizem) 30 mg PO QID [facility] Last Admin: 12/05/17 21:58 Dose: 30 mg Famotidine (Pepcid) 20 mg PO DAILY [facility] Last Admin: 12/05/17 10:12 Dose: 20 mg Heparin Sodium (Porcine) (Heparin) 5,000 units SC Q8 [facility] Last Admin: 12/06/17 05:21 Dose: Not Given Sodium Chloride (Sodium Chloride 0.9%) 1,000 mls @ 50 mls/hr IV .Q20H [facility] Stop: 12/06/17 17:14 Last Admin: 12/05/17 22:00 Dose: 50 mls/hr Metoprolol Tartrate (Lopressor) 12.5 mg PO BID [facility] Last Admin: 12/05/17 17:37 Dose: 12.5 mg Rosuvastatin Calcium (Crestor) 2.5 mg PO HS [facility] Last Admin: 12/05/17 21:57 Dose: 2.5 mg - Labs Labs: 12/06/17 08:01 12/06/17 08:01 PT 12.0 SECONDS (9.7-12.2) 12/03/17 02:35 INR 1.1 12/03/17 02:35 APTT 34 SECONDS (21-34) 12/03/17 02:35 - Constitutional Appears: Non-toxic, No Acute Distress - Head Exam Head Exam: ATRAUMATIC, NORMOCEPHALIC - Eye Exam Additional comments: strabismus noted - ENT Exam ENT Exam: Mucous Membranes Moist - Respiratory Exam Respiratory Exam: Clear to Ausculation Bilateral, NORMAL BREATHING PATTERN. absent: Accessory Muscle Use - Cardiovascular Exam Additional comments: crescendo-decrescendo systolic murmur along the upper left sternal border - Extremities Exam Extremities Exam: Normal Inspection - Back Exam Back Exam: NORMAL INSPECTION. absent: CVA tenderness (L), CVA tenderness (R) - Neurological Exam Neurological Exam: Alert, Awake, Oriented x3 - Psychiatric Exam Psychiatric exam: Normal Affect, Normal Mood - Skin Skin Exam: Dry, Intact, Normal Color, Warm Assessment and Plan - Assessment and Plan (Free Text) Assessment: 62 year old female with HOCM who presented with severe dyspnea, light headedness , and palpitations after running out of her home medications and taking a hot shower. Plan: 1) HCM - Aspirin 81m mg - Diltiazem 30 mg QID (do not hold if unless patient feels light headed) - Metoprolol 12.5 BID (do not hold this medication) - Crestor 2.5 mg HS - Cardiac catheterization shows thickened left ventricle with two septal arteries coming off the left anterior descending artery. Dr. Smith has reached out to Dr. Rodriguez and will endorse the case to him. Otherwise, continue with current with medical regiment. 2) Post-cardiac catherization - No fluids as patient was already volume resuscitated - 4 hours of bedrest, supine. Case reviewed and discussed with Dr. Smith <Danial Smith - Last Filed: 12/07/17 14:33> Objective - Vital Signs/Intake and Output Vital Signs (last 24 hours): Temp Pulse Resp BP Pulse Ox 98.1 F 90 20 129/77 97 12/07/17 07:00 12/07/17 14:03 12/07/17 07:00 12/07/17 14:03 12/07/17 07:00 Intake and Output: 12/07/17 12/07/17 06:59 18:59 Intake Total 480 Balance 480 - Medications Medications: Current Medications Aspirin (Aspirin Chewable) 81 mg PO DAILY [facility] Last Admin: 04/25/18 09:17 Dose: 81 mg Diltiazem HCl (Cardizem Cd) 120 mg PO 1400 [facility] Last Admin: 12/07/17 14:04 Dose: 120 mg Famotidine (Pepcid) 20 mg PO DAILY [facility] Last Admin: 12/07/17 09:17 Dose: 20 mg Heparin Sodium (Porcine) (Heparin) 5,000 units SC Q8 [facility] Last Admin: 12/07/17 14:04 Dose: 5,000 units Metoprolol Tartrate (Lopressor) 12.5 mg PO BID [facility] Last Admin: 12/07/17 09:17 Dose: 12.5 mg Rosuvastatin Calcium (Crestor) 2.5 mg PO HS [facility] Last Admin: 12/06/17 22:38 Dose: 2.5 mg - Labs Labs: 12/07/17 06:05 12/07/17 06:05 PT 12.0 SECONDS (9.7-12.2) 12/03/17 02:35 INR 1.1 12/03/17 02:35 APTT 34 SECONDS (21-34) 12/03/17 02:35 Attending/Attestation - Attestation I have personally seen and examined this patient.: Yes I have fully participated in the care of the patient.: Yes I have reviewed all pertinent clinical information, including history, physical exam and plan: Yes Notes (Text): 12/07/17 14:31 cardiac cath shows severe LV gradients c/w HOCM have 2 good septal perforators discussed case with HOCM expert at [facility] and will review with him plan for ASA ( alcohol septal ablation)
[2017-12-06 10:15] LABS: ARTERIAL BLOOD GAS HCO3 22.7 mmol/L (21-28); ARTERIAL BLOOD GAS HEMOGLOBIN 10.1 g/dL (11.7-17.4); ARTERIAL BLOOD GAS O2 SAT 99.5 % (95-98); ARTERIAL BLOOD GAS PCO2 36 mm/Hg (35-45); ARTERIAL BLOOD GAS PH 7.39 (7.35-7.45); ARTERIAL BLOOD GAS PO2 90 mm/Hg (80-100); ARTERIAL BLOOD GAS TCO2 22.9 mmol/L (22-28)
[2017-12-06 10:19] LABS: VENOUS BLOOD GAS BASE EXCESS -3.1 mmol/L (0.0-2.0); VENOUS BLOOD GAS PCO2 39 mmHg (40-60); VENOUS BLOOD GAS PO2 37 mm/Hg (30-55); VENOUS BLOOD PH 7.36 (7.32-7.43)
--- NOTE | 2017-12-06 15:02 | CP.PCM.PN ---
Subjective - Date & Time of Evaluation Date of Evaluation: 12/06/17 Time of Evaluation: 07:05 - Subjective Subjective: Medicine progress note ( Dr. Padilla's service) Patient was seen and examined at bedside. Patient reports that she is doing well with no acute complaints. As per nursing, no acute issues overnight. Patient denies chest pain, SOB, palpitations, cough, fever or chills. Patient is aware that she is having a cardiac catherization with Dr. Smith today. Patient was seen after cardiac catherization with attending and patient is doing well. Objective - Vital Signs/Intake and Output Vital Signs (last 24 hours): Temp Pulse Resp BP Pulse Ox 97.6 F 62 18 132/76 97 12/06/17 11:50 12/06/17 12:00 12/06/17 11:50 12/06/17 11:50 12/06/17 11:50 Intake and Output: 12/06/17 12/06/17 06:59 18:59 Intake Total 400 Balance 400 - Medications Medications: Current Medications Aspirin (Aspirin Chewable) 81 mg PO DAILY [facility] Last Admin: 12/06/17 12:03 Dose: 81 mg Diltiazem HCl (Cardizem) 30 mg PO QID [facility] Last Admin: 12/06/17 13:30 Dose: Not Given Famotidine (Pepcid) 20 mg PO DAILY [facility] Last Admin: 12/06/17 12:02 Dose: 20 mg Heparin Sodium (Porcine) (Heparin) 5,000 units SC Q8 [facility] Last Admin: 12/06/17 13:53 Dose: 5,000 units Metoprolol Tartrate (Lopressor) 12.5 mg PO BID [facility] Last Admin: 12/06/17 12:02 Dose: 12.5 mg Rosuvastatin Calcium (Crestor) 2.5 mg PO HS [facility] Last Admin: 12/05/17 21:57 Dose: 2.5 mg - Labs Labs: 12/06/17 08:01 12/06/17 08:01 PT 12.0 SECONDS (9.7-12.2) 12/03/17 02:35 INR 1.1 12/03/17 02:35 APTT 34 SECONDS (21-34) 12/03/17 02:35 - Constitutional Appears: Well, No Acute Distress - Head Exam Head Exam: ATRAUMATIC, NORMAL INSPECTION - Eye Exam Eye Exam: EOMI - ENT Exam ENT Exam: Mucous Membranes Moist - Respiratory Exam Respiratory Exam: Clear to Ausculation Bilateral, NORMAL BREATHING PATTERN. absent: Decreased Breath Sounds, Rhonchi, Wheezes, Respiratory Distress - Cardiovascular Exam Cardiovascular Exam: REGULAR RHYTHM, +S1, +S2, Murmur Additional comments: Holosystolic murmur - GI/Abdominal Exam GI & Abdominal Exam: Soft, Normal Bowel Sounds. absent: Firm, Guarding, Rigid, Tenderness - Extremities Exam Extremities Exam: Normal Inspection. absent: Calf Tenderness, Pedal Edema Additional comments: S/P cardiac catherization, right groin access: No noted hematoma, dressing is clean and intact - Back Exam Back Exam: NORMAL INSPECTION - Neurological Exam Neurological Exam: Alert, Awake, Oriented x3 - Psychiatric Exam Psychiatric exam: Normal Affect - Skin Skin Exam: Normal Color Assessment and Plan (1) Hypertrophic cardiomyopathy Assessment & Plan: Consultation: Cardiology, Dr. Smith---> Help appreciated * Management as per recommendation * Plans for cardiac catherization, 12/05/17. If Septal Artery is present then this will need ablation by Dr. Smith. If NO Septal Artery is present then patient will need Septoplasty - Cardiac catherization 12/06/17: thickened left ventricle with two septal arteries coming off the left anterior descending artery. Dr. Smith has reached out to Dr. Rodriguez and will endorse the case to him. Otherwise, continue with current with medical regiment. (As per 12/06/17 cardiology documentation) Diagnostic imaging and labs: Echo 10/18/17: Left ventricle systolic function is normal. Ejection fraction is > 70%. No aortic regurg. mitral reurg is mild to moderate. mild tricuspid regurg. mild pulm htn. trace to mild pulmonic valvular regurg. Echo (12/03/17): Awaiting report Trops: Negative X3 Lipid panel: * Total cholesterol 156, LDL 85, HDL 50, Triglycerides 73 Medications: ASA 81mg PO daily Cardizem 30 mg PO Q6H Metoprolol Tartrate 12.5 mg PO BID Status: Acute (2) Congestive heart failure Assessment & Plan: Resolved Diagnostic imaging and labs: BNP 1010 on admission Gentle diuresis in ED with lasix 20mg CXR (12/03/17): apparent CHF Status: Acute (3) History of coronary artery disease Assessment & Plan: ASA 81mg PO daily Crestor 2.5mg PO daily Status: Acute (4) Gastritis Assessment & Plan: Pepcid 20 mg PO BID Status: Acute (5) HTN (hypertension) Assessment & Plan: Well controlled Cardizem 30mg qid Metoprolol Tartrate 12.5mg BID Status: Chronic (6) Prophylactic measure Assessment & Plan: GI: Pepcid 20 mg PO BID DVT: Heparin 5000 units SC Q8H, SCDs Heart healthy diet All plans and management discussed with Dr. Padilla Disposition: Will give [facility], [phone] upon discharge Status: Acute
[2017-12-06 17:13] VITALS: RESP 20
--- NOTE | 2017-12-06 22:15 | CARD ---
APPROVED REPORT EKG Measurement Heart [id number] ID [id number] <Conclusion> Sinus rhythm with 1st degree AV block Left ventricular hypertrophy with QRS widening and repolarization abnormality Abnormal ECG
[2017-12-06] MEDS: Rosuvastatin Calcium 2.5 mg Tab PO SCH (22:38)
[2017-12-07 04:31] VITALS: O2SAT 97
[2017-12-07 06:13] LABS: BASO % 0.2 % (0.0-2.0); EOS # 0.3 K/uL (0.0-0.7); EOS % 3.8 % (0.0-4.0); HEMOGLOBIN 12.5 g/dL (11.0-16.0); LYMPH # 2.5 K/uL (1.0-4.3); LYMPH % 29.6 % (20.0-40.0); MEAN CELL VOLUME 86.4 fL (81.0-99.0); MEAN CORPUSCULAR HGB CONC 33.6 g/dL (33.0-37.0); MEAN PLATELET VOLUME 8.5 fL (7.2-11.7); MONO # 0.8 K/uL (0.0-0.8); NEUT # 4.8 K/uL (1.8-7.0); NEUT % 57.4 % (50.0-75.0); NRBC % 0.1 % (0.0-2.0); RBC 4.32 Mil/uL (3.80-5.20); RED CELL DISTRIBUTION WIDTH 14.7 % (11.5-14.5); WHITE BLOOD COUNT 8.3 K/uL (4.8-10.8)
[2017-12-07 06:36] LABS: ALB/GLOB RATIO 1.1 (1.0-2.1); ALBUMIN 4.2 g/dL (3.5-5.0); ALT/SGPT 65 U/L (9-52); AST/SGOT 42 U/L (14-36); BLOOD UREA NITROGEN 21 mg/dL (7-17); CALCIUM 9.2 mg/dl (8.6-10.4); GFR AFRICAN-AMERICAN > 60; GFR NON-AFRICAN AMERICAN 50
[2017-12-07 08:13] VITALS: TEMP 98.1
[2017-12-07] MEDS ORDERED: diltiaZEM 120 mg/24 Hours CD Cap PO SCH ×2 (10:30→14:00)
[2017-12-07 14:04] VITALS: BP 129/77; PULSE 90
--- NOTE | 2017-12-07 14:25 | CP.PCM.PN ---
<Mayank Alanis - Last Filed: 12/08/17 09:47> Subjective - Date & Time of Evaluation Date of Evaluation: 12/07/17 Time of Evaluation: 11:23 - Subjective Subjective: Cardiology Progress Note Patient seen and examined at bedside. Patient denies any chest pain, dyspnea, or palpitations in the interim. No adverse events noted overnight. Dr. Smith discussed in great detail the plan going forward. Objective - Vital Signs/Intake and Output Vital Signs (last 24 hours): Temp Pulse Resp BP Pulse Ox 98.1 F 90 20 129/77 97 12/07/17 07:00 12/07/17 14:03 12/07/17 07:00 12/07/17 14:03 12/07/17 07:00 Intake and Output: 12/07/17 12/07/17 06:59 18:59 Intake Total 480 Balance 480 - Medications Medications: Current Medications Aspirin (Aspirin Chewable) 81 mg PO DAILY [facility] Last Admin: 12/07/17 09:17 Dose: 81 mg Diltiazem HCl (Cardizem Cd) 120 mg PO 1400 [facility] Last Admin: 12/07/17 14:04 Dose: 120 mg Famotidine (Pepcid) 20 mg PO DAILY [facility] Last Admin: 12/07/17 09:17 Dose: 20 mg Heparin Sodium (Porcine) (Heparin) 5,000 units SC Q8 [facility] Last Admin: 12/07/17 14:04 Dose: 5,000 units Metoprolol Tartrate (Lopressor) 12.5 mg PO BID [facility] Last Admin: 12/07/17 09:17 Dose: 12.5 mg Rosuvastatin Calcium (Crestor) 2.5 mg PO HS [facility] Last Admin: 12/06/17 22:38 Dose: 2.5 mg - Labs Labs: 12/07/17 06:05 12/07/17 06:05 PT 12.0 SECONDS (9.7-12.2) 12/03/17 02:35 INR 1.1 12/03/17 02:35 APTT 34 SECONDS (21-34) 12/03/17 02:35 - Constitutional Appears: Well, Non-toxic - Head Exam Head Exam: ATRAUMATIC - Eye Exam Eye Exam: EOMI, Normal appearance - ENT Exam ENT Exam: Mucous Membranes Moist, Normal Exam - Respiratory Exam Respiratory Exam: Clear to Ausculation Bilateral, NORMAL BREATHING PATTERN. absent: Accessory Muscle Use - Cardiovascular Exam Cardiovascular Exam: +S1, +S2 - GI/Abdominal Exam GI & Abdominal Exam: Soft, Normal Bowel Sounds - Extremities Exam Extremities Exam: absent: Calf Tenderness, Pedal Edema - Neurological Exam Neurological Exam: Alert, Awake, CN II-XII Intact - Psychiatric Exam Psychiatric exam: Normal Affect, Normal Mood - Skin Skin Exam: Dry, Normal Color, Warm Assessment and Plan (1) Swelling of lower extremity Status: Acute (2) Hypertrophic obstructive cardiomyopathy (HOCM) Status: Acute (3) Dyslipidemia Status: Acute (4) Dyspnea on exertion Status: Acute (5) HTN (hypertension) Status: Chronic - Assessment and Plan (Free Text) Assessment: 62 year old female with HOCM who presented with severe dyspnea, light headedness , and palpitations after running out of her home medications and taking a hot shower. Plan: 1) HCM - Diltiazem 30 mg QID (do not hold if unless patient feels light headed) - Metoprolol 12.5 BID (do not hold this medication) - Cardiac catheterization shows no CAD disease, thickened left ventricle with two septal arteries coming off the left anterior descending artery. Dr. Smith has reached out to Dr. Gomez and will endorse the case to him. Otherwise, continue with current with medical regiment. Patient to follow up with Dr. Smith on 12/13/2017. 2) Post-cardiac catherization - No CAD noted - No fluids as patient was already volume resuscitated - 4 hours of bedrest, supine 3) Hypertension - Continue with Diltiazem 30 mg QID 4) Lower extremity edema - Patient advised to eat less than 2 g of Sodium daily 5) Primary Prevention - Aspirin 81 mg daily Case reviewed and discussed with Dr. Smith <Danial Smith - Last Filed: 12/08/17 09:54> Objective - Vital Signs/Intake and Output Vital Signs (last 24 hours): Temp Pulse Resp BP Pulse Ox 98.1 F 90 20 129/77 97 12/07/17 07:00 12/07/17 14:03 12/07/17 07:00 12/07/17 14:03 12/07/17 07:00 - Labs Labs: 12/07/17 06:05 12/07/17 06:05 PT 12.0 SECONDS (9.7-12.2) 12/03/17 02:35 INR 1.1 12/03/17 02:35 APTT 34 SECONDS (21-34) 12/03/17 02:35 Attending/Attestation - Attestation I have personally seen and examined this patient.: Yes I have fully participated in the care of the patient.: Yes I have reviewed all pertinent clinical information, including history, physical exam and plan: Yes Notes (Text): 12/08/17 09:54 cont CCB and BB plan for outpt alcohol septal ablation
--- NOTE | 2017-12-07 15:33 | CP.PCM.DIS ---
Provider - Provider Date of Admission: 12/03/17 04:20 Attending physician: Catrachito Arellano MD Time Spent in preparation of Discharge (in minutes): 35 Diagnosis - Discharge Diagnosis (1) Hypertrophic cardiomyopathy Status: Chronic (2) Congestive heart failure Status: Acute (3) History of coronary artery disease Status: Chronic (4) Gastritis Status: Chronic (5) HTN (hypertension) Status: Chronic (6) Prophylactic measure Status: Acute Hospital Course - Lab Results Lab Results: Most Recent Lab Values WBC 8.3 K/uL (4.8-10.8) 12/07/17 06:05 RBC 4.32 Mil/uL (3.80-5.20) 12/07/17 06:05 Hgb 12.5 g/dL (11.0-16.0) 12/07/17 06:05 Hct 37.3 % (34.0-47.0) 12/07/17 06:05 MCV 86.4 fL (81.0-99.0) 12/07/17 06:05 MCH 29.0 pg (27.0-31.0) 12/07/17 06:05 MCHC 33.6 g/dL (33.0-37.0) 12/07/17 06:05 RDW 14.7 % (11.5-14.5) H 12/07/17 06:05 Plt Count 271 K/uL (130-400) 12/07/17 06:05 MPV 8.5 fL (7.2-11.7) 12/07/17 06:05 Neut % (Auto) 57.4 % (50.0-75.0) 12/07/17 06:05 Lymph % (Auto) 29.6 % (20.0-40.0) 12/07/17 06:05 [place] % (Auto) 9.0 % (0.0-10.0) 12/07/17 06:05 Eos % (Auto) 3.8 % (0.0-4.0) 12/07/17 06:05 Baso % (Auto) 0.2 % (0.0-2.0) 12/07/17 06:05 Neut # (Auto) 4.8 K/uL (1.8-7.0) 12/07/17 06:05 Lymph # (Auto) 2.5 K/uL (1.0-4.3) 12/07/17 06:05 [place] # (Auto) 0.8 K/uL (0.0-0.8) 12/07/17 06:05 Eos # (Auto) 0.3 K/uL (0.0-0.7) 12/07/17 06:05 Baso # (Auto) 0.0 K/uL (0.0-0.2) 12/07/17 06:05 PT 12.0 SECONDS (9.7-12.2) 12/03/17 02:35 INR 1.1 12/03/17 02:35 APTT 34 SECONDS (21-34) 12/03/17 02:35 Puncture Site Line 12/06/17 10:11 pCO2 36 mm/Hg (35-45) 12/06/17 10:11 pO2 37 mm/Hg (30-55) 12/06/17 10:11 HCO3 22.7 mmol/L (21-28) 12/06/17 10:11 ABG pH 7.39 (7.35-7.45) 12/06/17 10:11 ABG Total CO2 22.9 mmol/L (22-28) 12/06/17 10:11 ABG O2 Saturation 99.5 % (95-98) H 12/06/17 10:11 ABG Base Excess -2.8 mmol/L (-2.0-3.0) L 12/06/17 10:11 ABG Hemoglobin 10.1 g/dL (11.7-17.4) L 12/06/17 10:11 ABG Carboxyhemoglobin 2.3 % (0.5-1.5) H 12/06/17 10:11 POC ABG HHb (Measured) 0.5 % (0.0-5.0) 12/06/17 10:11 ABG Methemoglobin 0.7 % (0.0-3.0) 12/06/17 10:11 Guillermo Test Na 12/06/17 10:11 ABG Potassium 3.6 mmol/L (3.6-5.2) 12/03/17 02:30 VBG pH 7.36 (7.32-7.43) 12/06/17 10:11 VBG pCO2 39 mmHg (40-60) L 12/06/17 10:11 VBG HCO3 21.7 mmol/L 12/06/17 10:11 VBG Total CO2 23.2 mmol/L (22-28) 12/06/17 10:11 VBG O2 Sat (Calc) 75.4 % (40-65) H 12/06/17 10:11 VBG Base Excess -3.1 mmol/L (0.0-2.0) L 12/06/17 10:11 VBG Potassium 3.3 mmol/L (3.6-5.2) L 12/06/17 10:11 A-a O2 Difference 55.0 mm/Hg 12/03/17 02:30 Respiratory Index 1.1 12/03/17 02:30 Hgb O2 Saturation 96.5 % (95.0-98.0) 12/06/17 10:11 Sodium 144.0 mmol/l (132-148) 12/06/17 10:11 Chloride 111.0 mmol/L (98-107) H 12/06/17 10:11 Glucose 79 mg/dl (65-105) 12/06/17 10:11 Lactate 0.7 mmol/L (0.7-2.1) 12/06/17 10:11 Vent Mode Room air 12/03/17 02:30 FiO2 21.0 % 12/03/17 02:30 Blood Gas Comments Ra 12/06/17 10:11 Crit Value Read Back N 12/06/17 10:11 Sodium 142 mmol/L (132-148) 12/07/17 06:05 Potassium 4.4 mmol/L (3.6-5.2) 12/07/17 06:05 Chloride 101 mmol/L (98-107) 12/07/17 06:05 Carbon Dioxide 27 mmol/L (22-30) 12/07/17 06:05 Anion Gap 17 (10-20) 12/07/17 06:05 BUN 21 mg/dL (7-17) H 12/07/17 06:05 Creatinine 1.1 mg/dL (0.7-1.2) 12/07/17 06:05 Est GFR ( Amer) > 60 12/07/17 06:05 Est GFR (Non-Af Amer) 50 12/07/17 06:05 Random Glucose 88 mg/dL (65-105) 12/07/17 06:05 Calcium 9.2 mg/dl (8.6-10.4) 12/07/17 06:05 Phosphorus 4.3 mg/dL (2.5-4.5) 12/07/17 06:05 Magnesium 2.2 mg/dL (1.6-2.3) 12/07/17 06:05 Total Bilirubin 0.7 mg/dL (0.2-1.3) 12/07/17 06:05 AST 42 U/L (14-36) H 12/07/17 06:05 ALT 65 U/L (9-52) H 12/07/17 06:05 Alkaline Phosphatase 91 U/L (38-126) 12/07/17 06:05 Total Creatine Kinase 256 U/L (30-135) H 12/03/17 15:43 CK-MB (Mass) 1.16 ng/mL (0.0-3.38) 12/03/17 15:43 Troponin I 0.0600 ng/mL (0.00-0.120) 12/03/17 15:43 NT-Pro-B Natriuret Pep 1010 pg/mL (0-900) H 12/03/17 02:35 Total Protein 8.0 g/dL (6.3-8.3) 12/07/17 06:05 Albumin 4.2 g/dL (3.5-5.0) 12/07/17 06:05 Globulin 3.9 gm/dL (2.2-3.9) 12/07/17 06:05 Albumin/Globulin Ratio 1.1 (1.0-2.1) 12/07/17 06:05 Triglycerides 73 mg/dL (0-149) D 12/03/17 05:17 Cholesterol 156 mg/dL (0-199) 12/03/17 05:17 LDL Cholesterol Direct 85 mg/dL (0-129) 12/03/17 05:17 HDL Cholesterol 50 mg/dL (30-70) 12/03/17 05:17 Arterial Blood Potassium 3.6 mmol/L (3.6-5.2) 12/03/17 02:30 Venous Blood Potassium 3.3 mmol/L (3.6-5.2) L 12/06/17 10:11 Urine Color Straw (YELLOW) 12/03/17 07:37 Urine Clarity Clear (Clear) 12/03/17 07:37 Urine pH 5.0 (5.0-8.0) 12/03/17 07:37 Ur Specific [place] 1.012 (1.003-1.030) 12/03/17 07:37 Urine Protein Negative mg/dL (NEGATIVE) 12/03/17 07:37 Urine Glucose (UA) Normal mg/dL (Normal) 12/03/17 07:37 Urine Ketones Negative mg/dL (NEGATIVE) 12/03/17 07:37 Urine Blood 2+ (NEGATIVE) H 12/03/17 07:37 Urine Nitrate Negative (NEGATIVE) 12/03/17 07:37 Urine Bilirubin Negative (NEGATIVE) 12/03/17 07:37 Urine Urobilinogen Normal mg/dL (0.2-1.0) 12/03/17 07:37 Ur Leukocyte Esterase Neg Melanie/uL (Negative) 12/03/17 07:37 Urine WBC (Auto) < 1 /hpf (0-5) 12/03/17 07:37 Urine RBC (Auto) 21 /hpf (0-3) H 12/03/17 07:37 Ur Squamous Epith Cells < 1 /hpf (0-5) 12/03/17 07:37 - Hospital Course Hospital Course: HPI (As per admission): Patient is a 62 y/o female with past medical history of newly diagnosed Hypertrophic Cardiomyopathy, HTN, CAD, HLD, pneumonia, gastritis who presents to the ED with complaint of shortness of breath. Patient was hospitalized in October for chest pain and found to have Hypertrophic Cardiomyopathy. Patient was to follow up with the clinic, get a repeat echo, and see Dr. Smith after discharge. Patient claims she only knew about seeing Dr. Smith and she couldn't go to him because she doesn't have insurance. Patient also stopped taking the prescribed medications after the ran out stating that she didn't know she was to continue taking them. Since being discharged on 10/20/17, patient says she has been having shortness of breath with activity. She sleeps flat at night, but wakes up most nights with shortness of breath. The past 3 days patient's shortness of breath has increased. She also developed a cough with green phlegm and sore throat. She denies dizziness, lightheadedness, syncope, fever, chills, abdominal pain, n/v/d/c, and leg pain. Hospital Course: This is a 61 year old female with a PMHx of hypertrophic cardiomyopathy, HTN, CAD, HLD, Pneumonia, gastritis, cardiac catheterization, who presented to the [facility] ED on 12/03/17 for shortness of breath with a cough for 1 week. In the ED patient CXR showed underlying airspace disease in the right perihilar/ infrahilar space, trace left pleural effusion and active CHF was apparent. Patient was admitted for observation for 2 midnights. Patient was started on Duonebs in ED, Lasix 20 mg, Cardizem 30 mg QID, Metoprolol 12.5 mg BID, Asa 81 mg. Cardiology was consulted where they performed a cardiac catheterization 12/06 to assess for a septal artery. Cardiac Cath showed thickened left ventricle with two septal arteries coming off the left anterior descending artery. Cardiology recommended patient follow up with surgery for septoplasty after discharge from hospital. Through the rest of her hospital stay, patient did not have any exacerbations of symptoms and did not require any additional interventional procedures. Pertinent Imaging/Labs: CXR (12/03/17): apparent CHF Echo 10/18/17: Left ventricle systolic function is normal. Ejection fraction is > 70%. No aortic regurg. mitral reurg is mild to moderate. mild tricuspid regurg. mild pulm htn. trace to mild pulmonic valvular regurg. Cardiac catherization 12/06/17: thickened left ventricle with two septal arteries coming off the left anterior descending artery This is a brief summary of event. For a complete course, please refer to the medical records Discharge Exam - Head Exam Head Exam: ATRAUMATIC - Eye Exam Eye Exam: EOMI, Normal appearance - ENT Exam ENT Exam: Mucous Membranes Moist - Respiratory Exam Respiratory Exam: Clear to PA & Lateral, NORMAL BREATHING PATTERN. absent: Prolonged Expiratory Phase, Rales, Wheezes, Respiratory Distress - Cardiovascular Exam Cardiovascular Exam: REGULAR RHYTHM, +S1, +S2, Systolic Murmur - GI/Abdominal Exam GI & Abdominal Exam: Normal Bowel Sounds, Soft. absent: Diminished Bowel Sounds , Distended, Firm, Guarding, Tenderness - Extremities Exam Extremities exam: normal inspection, pedal pulses present Additional comments: S/p diagnostic cardiac catherization for HOCM: * Right groin access without hematoma, dressing is clean, dry and intact * Positive right DP AND PT pulse * Right leg is warm to touch - Neurological Exam Neurological exam: Alert, Normal Gait, Oriented x3 - Psychiatric Exam Psychiatric exam: Normal Affect, Normal Mood - Skin Skin Exam: Normal Color Discharge Plan - Discharge Medications Prescriptions: Amoxicillin 2 g PO ONCE 1 Days #1 tab.chew Aspirin [Aspirin Chewable] 81 mg PO DAILY 30 Days #30 chew diltiaZEM CD [Cardizem CD] 120 mg PO DAILY 30 Days #30 cap Metoprolol Tartrate [Lopressor] 1 tab PO BID 30 Days #60 tab Rosuvastatin Calcium 2.5 [Crestor] 2.5 mg PO HS 30 Days #30 tab - Follow Up Plan Condition: FAIR Disposition: HOME/ ROUTINE Instructions: Heart Healthy Diet, Heart Failure, Adult (DC), Cardiac Catheterization (DC), Shortness of Breath (Dyspnea) (DC), Amoxicillin, Aspirin, Diltiazem, Metoprolol, Rosuvastatin Additional Instructions: Please discharge patient home Please resume all your medications as prescribed: 1. Aspirin 81 mg, 1 tablet by mouth 1x/day (9 AM), Dispense #30, NO refills 2. Cardizem CD 120mg, 1 tablet by mouth 1x/day (9 AM), Dispense #30, NO refills 3. Metoprolol Tartrate 12.5 mg, 1 tablet by mouth 2x/day (9 AM and 9 PM), Dispense #60, NO refills 4. Amoxicillin 2g once 30-60 minutes before your dental procedure as discusses Please take all your medications daily as instructed. 1). Schedule appointment with the [facility] [place] by calling [phone]. This appointment should take place ERIKA with residential subcontractor, Dr. Israel Catherine 2). Schedule an appointment with Peanut Separator Dr. Smith by calling his office at [phone]. This appointment should take place in the next 7 days upon discharge. -Cardiac catheterization shows thickened left ventricle with two septal arteries coming off the left anterior descending artery. Dr. Smith has reached out to Dr. Gomez and will endorse the case to him. (Dr. Huber Gomez, - [place], [place] office and [phone], [place]) - You can follow up or schedule an appointment at [facility] [place] at [facility], [address] [place] [address], [place] [address] ( [facility]), 3). Do NOT perform any strenuous activities and do NOT take any hot bathes or use a suana. Your heart is enlarged and it is dangerous for you to perform any strenuous activities. Please return to the hospital if symptoms resume within 1-2 days Please follow up at [facility] [place] by calling [phone] Israel Catherine Please follow up with [facility], Dr. mSith as planned Please follow up with Dr. Gomez and the [facility] in [place] in order to have possible option for treatment [place] paciente a casa Por favor, reinicie todos dagmar medicamentos segn lo recetado: 1. Aspirina 81 mg, 1 tableta por va oral 1x / da (9 AM), Dispensa # 30, NO vuelve a llenar 2. Cardizem CD 120mg, 1 tableta por boca 1x / da (9 AM), Dispensa # 30, NO recambios 3. Tartrato de metoprolol 12.5 mg, 1 tableta por va oral 2 veces al da (9 a.m. y 9 p.m.), [address], sin reposicin 4. Amoxicilina 2g pravin vez 30-60 minutos antes de musa procedimiento dental alvino se discute Por favor, tome todos dagmar medicamentos diariamente segn las instrucciones. 1). Programe pravin jeremy con el sistema de azeb de puntos de atencin afiliados al [facility] en [place] llamando al [phone]. Esta jeremy debe llevarse a cabo lo antes posible con el residente sanna, Dr. Israel Catherine 2). Programe pravin jeremy con el cardilogo Dr. Smith llamando a musa oficina al [phone]. Esta jeremy debe realizarse en los prximos 7 garcia despus del marina. - El cateterismo cardaco muestra un ventrculo abel engrosado con dos arterias septales que salen de la arteria descendente anterior izquierda. El Dr. Smith se acerc al Dr. Gomez y le endosar el ryann. (Dr. Huber Gomez, [place], [place] y [phone], [place]) - Puede hacer un seguimiento o programar pravin jeremy en el [facility] [place] en [facility], [address] [place] [address] (Centro [facility]iop[facility]), 3). NO realice actividades extenuantes y NO tome baos calientes ni use suana. Musa corazn est agrandado y es peligroso para usted realizar actividades extenuantes. Por favor regrese al hospital si los sntomas se reanudan en 1-2 garcia Por favor, sally un seguimiento en el sistema de azeb de puntos de atencin afiliado a [facility] [phone] Wood [place] Por favor, sally un seguimiento con el cardilogo, Dr. Smith segn lo planeado Por favor, sally un seguimiento con el Dr. Gomez y el [facility] en [place] para tener pravin posible opcin de tratamiento Referrals: Danial Smith MD [Staff Provider] -
--- NOTE | 2017-12-08 08:01 | PCM.HF ---
Heart Failure Core Measure - Heart Failure Ejection Fraction: 40 % or Greater HELEN Inhibitor Prescribed: No Contraindication/Reason for not providing: EF>45 Beta-Cuate Prescribed: Metoprolol Succinate Angiotensin II Receptor Cuate Prescribed: No Contraindication/Reason for not providing: EF>45 AnticoagulationTherapy for Atrial Fibrillation/Atrialflutter: No Contraindication/Reason for not providing: NO HX OF A FIB Aldosterone Antagonist Prescribed: No Contraindication/Reason for not providing: EF>45 Hydralazine Nitrate Prescribed: No Contraindication/Reason for not providing: ON ccb Implantable Cardioverter Defibrillator Therapy: No Contraindication/Reason for not providing: EF>45 Cardiac Resynchronization Therapy Prescribed: No Contraindication/Reason for not providing: ef>45 - Follow up Will be discharged to: Home Follow Up Date (must be within 7 days from discharge): 12/12/17 Follow Up Time: 09:00
== END 2017-12-07 14:40 | disposition home or self-care (01) | DRG 124 ==
LOC: C.ER 01:05 → C.6T 04:20 → C.9E 04:20 → C.6T 21:52
PROVIDERS: ADMIT Internal Medicine; ATTEND Internal Medicine
PROC: 4A023N8 Measurement of Cardiac Sampling and Pressure, Bilateral, Percutaneous Approach (ICD-10-PCS; principal; 2017-12-06)
PROC: B211YZZ Fluoroscopy of Multiple Coronary Arteries using Other Contrast (ICD-10-PCS; 2017-12-06)
PROC: B216YZZ Fluoroscopy of Right and Left Heart using Other Contrast (ICD-10-PCS; 2017-12-06)
DX: I11.0 Hypertensive heart disease with heart failure (principal); I42.1 Obstructive hypertrophic cardiomyopathy; E78.5 Hyperlipidemia, unspecified; I50.9 Heart failure, unspecified; I25.10 Atherosclerotic heart disease of native coronary artery without angina pectoris; J45.909 Unspecified asthma, uncomplicated; Z87.01 Personal history of pneumonia (recurrent); K29.70 Gastritis, unspecified, without bleeding; M54.6 Pain in thoracic spine; I27.20 Pulmonary hypertension, unspecified